=== PATIENT | female | born 1930 | race Caucasian/White ===

== ENCOUNTER 2017-05-05 10:08 | Emergency (ER) | payer OTHER ==
[~2017-05-05] VITALS: Ht 160 cm; Wt 76.0 kg
[~2017-05-05 10:08] MED LIST: APIX5TAB PO; ASPI81TA82 PO; DOXY100T PO; FENO134C PO; GABA100C4 PO; ISOS30TA3 PO; LISI-363 PO; METO50CR PO; MEVA40TA6 PO; NITR0.4S SL; PANT20 PO
[2017-05-05 10:10] VITALS: BP 135/65; PULSE 55; RESP 16; TEMP 98.7; O2SAT 97
--- NOTE | 2017-05-05 10:52 | PD ---
HPI Chief Complaint: Fall Time Seen by Provider: 10:52 Travel History International Travel<30 days: No Contact w/Intl Traveler<30days: No Traveled to known affect area: No History of Present Illness HPI 86 year-old female presents to the emergency department with her daughter for evaluation of tailbone pain after a slip and fall one week ago. Patient believes she may have broken her tailbone. When she fell she did not strike her head or lose consciousness. She is bruised on her right forearm and elbow and the outer is requesting evaluation of this. Patient states the pain is aching, constant, worse with sitting. She has no other symptoms to report. PFSH Past Medical History Hx Anticoagulant Therapy: Yes Anemia: Yes Arthritis: Yes Asthma: No Atrial Fibrillation: Yes (takes Plavix and 2 baby aspirin) Autoimmune Disease: No Blood Disorders: No Anxiety: No Depression: No Heart Rhythm Problems: No Cancer: Yes (RT BREAST) Cardiac Catheterization: Yes Cardiovascular Problems: Yes High Cholesterol: Yes Chemotherapy: No Chest Pain: Yes Congestive Heart Failure: No COPD: No Cerebrovascular Accident: Yes (TIA ) Coronary Artery Disease: Yes Diabetes: No Diminished Hearing: No Endocrine: No Gastrointestinal Disorders: Yes (ULCERS 20 YEARS AGO; C-DIFF) GERD: Yes Glaucoma: No Genitourinary: No Headaches: No Hepatitis: No Hiatal Hernia: No Hypertension: Yes Immune Disorder: No Implanted Vascular Access Dvce: No Kidney Stones: No Musculoskeletal: No Neurologic: No Psychiatric: No Reproductive: No Respiratory: No Immunizations Current: Yes Migraines: No Myocardial Infarction: No Radiation Therapy: Yes Renal Failure: No Seizures: No Sickle Cell Disease: No Sleep Apnea: Yes Thyroid Disease: No Ulcer: Yes ?: Not Menopausal: Yes Past Surgical History Abdominal Surgery: Yes (hernia repair) AICD: No Appendectomy: No Arteriovenous Shunt: No Cardiac Surgery: Yes (ANGIOPLASTY) Cholecystectomy: Yes Coronary Stent: Yes (X3) Ear Surgery: No Endocrine Surgery: No Eye Surgery: No Genitourinary Surgery: No Gynecologic Surgery: Yes (RT BRST LUMPECTOMY) Hysterectomy: Yes Insulin Pump: No Joint Replacement: Yes (R HIP) Neurologic Surgery: No Oral Surgery: No Pacemaker: No Thoracic Surgery: No Other Surgery: Yes (RIGHT BREAST LUMPECTOMY) Social History Alcohol Use: Yes (OCC. WINE) Tobacco Use: No Substance Use: No Allergies-Medications (Allergen,Severity, Reaction): Coded Allergies: Sulfa (Sulfonamide Antibiotics) (Unverified Allergy, Severe, 05/04/17) codeine (Unverified Allergy, Severe, Hallucinations, 05/04/17) & HIVES penicillin G (Unverified Allergy, Severe, ITCHING, 05/04/17) Reported Meds & Prescriptions Reported Meds & Active Scripts Active Lortab (Hydrocodone-Acetaminophen) 5-325 Mg Tab 1 Tab PO Q6H PRN Reported Protonix (Pantoprazole Sodium) 20 Mg Tab 20 Mg PO DAILY Nitroglycerin SL (Nitroglycerin) 0.4 Mg Subl 0.4 Mg SL DIRECTED PRN ONE TABLET UNDER THE TONGUE NEEDED FOR CHEST PAIN, MAY REPEAT EVERY FIVE MINUTES FOR A TOTAL OF 3 DOSES OR CALL 911 IF NO RELIEF Metoprolol Succinate ER 24 HR (Metoprolol Succinate) 50 Mg Tab 50 Mg PO DAILY Lovastatin 40 Mg Tab 40 Mg PO DAILY Lisinopril 20 Mg Tab 20 Mg PO DAILY Gabapentin 100 Mg Cap 100 Mg PO BID Fenofibrate Micronized 134 Mg Cap 134 Mg PO DAILY Aspirin 81 Mg Chew 81 Mg CHEW DAILY Eliquis (Apixaban) 5 Mg Tab 5 Mg PO BID Review of Systems Except as stated in HPI: all other systems reviewed are Neg Physical Exam Narrative GENERAL: Well-nourished elderly female patient in no acute distress SKIN: Focused skin assessment warm/dry. Ecchymosis of the right forearm and proximal upper extremity. HEAD: Atraumatic. Normocephalic. EYES: Pupils equal and round. No scleral icterus. No injection or drainage. ENT: No nasal bleeding or discharge. Mucous membranes pink and moist. NECK: Trachea midline. No JVD. CARDIOVASCULAR: Regular rate and rhythm. RESPIRATORY: No accessory muscle use. Clear to auscultation. Breath sounds equal bilaterally. GASTROINTESTINAL: Abdomen soft, non-tender, nondistended. Hepatic and splenic margins not palpable. MUSCULOSKELETAL: No obvious deformities. No clubbing. No cyanosis. No edema. Tenderness elicited palpation of the sacrum and coccyx. NEUROLOGICAL: Awake and alert. No obvious cranial nerve deficits. Motor grossly within normal limits. Normal speech. PSYCHIATRIC: Appropriate mood and affect; insight and judgment normal. Data Data Last Documented VS Vital Signs Date Time Temp Pulse Resp B/P Pulse Ox O2 Delivery O2 Flow Rate FiO2 05/05/17 13:23 88 17 132/80 96 05/05/17 10:10 98.7 Room Air Orders Sacrum And Coccyx (05/05/17 ) Shoulder, Complete (>2vws) (05/05/17 ) Forearm (2vws) (05/05/17 ) Dexamethasone Inj (Decadron Inj) (05/05/17 11:30) Acetamin-Hydrocod 325-5 Mg ([place] 5-325 (05/05/17 13:00) [facility] Medical Decision Making Medical Screen Exam Complete: Yes Emergency Medical Condition: Yes Medical Record Reviewed: Yes Differential Diagnosis Fracture versus sprain versus contusion versus dislocation Narrative Course 86 year female presents to the emergency department for evaluation. Patient appears without distress. She has no focal deficits or weakness. Fall was one week ago. X-ray imaging of the sacrum and coccyx shows a possible nondisplaced fracture of the coccyx. Otherwise imaging studies are negative. Patient is child with a Lortab here for pain. She tolerates this well. She'll be discharged home with additional pain control. She is encouraged to follow with orthopedically impaired teacher in her primary care provider. She agrees to return immediately with any acute worsening symptoms. Diagnosis Primary Impression: Fractured coccyx Qualified Code: S32.2XXA - Closed fracture of coccyx, initial encounter Additional Impression: Contusion of right arm Qualified Code: S40.021A - Contusion of right upper extremity, initial encounter Referrals: Orthopaedic Surgeon Primary Care Physician Patient Instructions: Coccyx Injury (ED), General Instructions Additional Instructions: Ice to the affected area A wedge pillow may help to avoid pressure on the coccyx while it heals Follow-up with orthopedically impaired teacher Follow-up with your primary care provider Return immediately with any acute worsening of symptoms Med/Other Pt SpecificInfo: Prescription(s) given Scripts Hydrocodone-Acetaminophen (Lortab)5-325 Mg Tab1 Tab PO Q6H PRN (PAIN GREATER THAN 6) #12 TAB Ref 0 Prov:Sheri Ward 05/05/17 Disposition: 01 DISCHARGE HOME Condition: Stable Sheri Ward May 05, 2017 10:52
[2017-05-05] MEDS ORDERED: GABA100C4 PO (11:19)
[2017-05-05] MEDS ORDERED: ASPI81CH PO (11:19)
[2017-05-05] MEDS ORDERED: FENO134C PO (11:19)
[2017-05-05] MEDS ORDERED: METO50TA11 PO (11:19)
[2017-05-05] MEDS ORDERED: LOVA40TA PO (11:19)
[2017-05-05] MEDS ORDERED: NITR1SUB3 SL (11:19)
[2017-05-05] MEDS ORDERED: PANT20 PO (11:19)
[2017-05-05] MEDS ORDERED: APIX5TAB PO (11:19)
[2017-05-05] MEDS ORDERED: LISI-515 PO (11:19)
[2017-05-05] MEDS ORDERED: DEXAMETHASONE SOD PHOS 4 MG/ML VIAL IM ONE (11:30)
--- NOTE | 2017-05-05 12:07 | RADRPT ---
EXAM DATE/TIME: 05/05/2017 11:20 [facility] COMPARISON: SHOULDER RIGHT COMPLETE (>2VWS), March 11, 2016, 12:42. INDICATIONS : Fall last Wednesday evening. MEDICAL HISTORY : Carcinoma, breast. Hypertension. Hernia. Anemia. Afib. TIA. CAD. SURGICAL HISTORY : Cholecystectomy. Cardiac catheterization. Hernia. Angioplasty. Right breast lumpectomy, Left hip re placement ENCOUNTER: Initial ACUITY: 4 - 6 days PAIN SCORE: 5/10 LOCATION: Right Lateral aspect FINDINGS: Degenerative changes are seen about the right shoulder. Alignment is anatomic. Fracture is not appr eciated. CONCLUSION: Degenerative changes, negative for fracture. Gene Starkey MD FACR on May 05, 2017 at 12:05 Board Certified Radiologist. This report was verified electronically.
--- NOTE | 2017-05-05 12:08 | RADRPT ---
EXAM DATE/TIME: 05/05/2017 11:18 [facility] COMPARISON: No previous studies available for comparison. INDICATIONS : Fall last Wednesday evening. MEDICAL HISTORY : Carcinoma, breast. Hypertension. Hernia. Anemia. Afib. TIA. CAD. SURGICAL HISTORY : Cholecystectomy. Cardiac catheterization. Hernia. Angioplasty. Right breast lumpectomy, Left hip re placement. ENCOUNTER: Initial ACUITY: 4 - 6 days PAIN SCORE: 4/10 LOCATION: Right Posterior aspect. FINDINGS: Two view examination of the right forearm demonstrates no evidence of fracture or dislocation. Bony mineralization is normal. The soft tissue structures are intact. CONCLUSION: Negative for fracture. Gene Starkey MD FACR on May 05, 2017 at 12:06 Board Certified Radiologist. This report was verified electronically.
--- NOTE | 2017-05-05 12:42 | RADRPT ---
EXAM DATE/TIME: 05/05/2017 11:18 [facility] COMPARISON: SHOULDER RIGHT COMPLETE (>2VWS), March 11, 2016, 12:42. INDICATIONS : Fall last Wednesday evening. MEDICAL HISTORY : Carcinoma, breast. Hypertension. Hernia. Anemia. Afib. TIA. CAD. SURGICAL HISTORY : Cholecystectomy. Cardiac catheterization. Hernia. Angioplasty. Right breast lumpectomy, Left hip re placement. ENCOUNTER: Initial ACUITY: 4 - 6 days PAIN SCORE: 8/10 LOCATION: Rear end FINDINGS: 2 views of the sacrum and coccyx are provided. The exam demonstrates subtle lucency through the coccy x. There is questionable nondisplaced fracture of the coccyx. The remainder the sacrum appears intact . The visualized portions of pelvis are intact. The patient is post left hip arthroplasty. CONCLUSION: 1. Questionable nondisplaced fracture through the coccyx. Jose Starkey MD on May 05, 2017 at 12:39 Board Certified Radiologist. This report was verified electronically.
[2017-05-05] MEDS ORDERED: ACETAMINOPHEN/HYDROcodone 325 MG/5 MG TAB PO ONE (13:00)
[2017-05-05] MEDS ORDERED: HYDR-3533 PO (13:17)
[2017-05-05 13:23] VITALS: BP 132/80
== END 2017-05-05 13:24 | disposition home or self-care (01) ==
LOC: NEPD 10:08
DX: S32.2XXA Fracture of coccyx, initial encounter for closed fracture (principal); S40.021A Contusion of right upper arm, initial encounter; I10 Essential (primary) hypertension; E78.00 Pure hypercholesterolemia, unspecified; G47.30 Sleep apnea, unspecified; W19.XXXA Unspecified fall, initial encounter; Z86.2 Personal history of diseases of the blood and blood-forming organs and certain disorders involving the immune mechanism; Z87.39 Personal history of other diseases of the musculoskeletal system and connective tissue; Z86.79 Personal history of other diseases of the circulatory system; Z85.3 Personal history of malignant neoplasm of breast; Z87.19 Personal history of other diseases of the digestive system
CPT/HCPCS: 72220; 73030; 73090; 96372; 99284; J1100

== ENCOUNTER 2017-06-24 15:59 | Observation (INO) | payer MEDICARE, OTHER ==
[~2017-06-24] VITALS: Ht 165.1 cm; Wt 80.0 kg
[~2017-06-24 15:59] MED LIST changes: +ASPI81CH PO; -ASPI81TA82 PO; -DOXY100T PO; +HYDR-3533 PO; -ISOS30TA3 PO; -LISI-363 PO; +LISI-515 PO; +LOVA40TA PO; -METO50CR PO; +METO50TA11 PO; -MEVA40TA6 PO; -NITR0.4S SL; +NITR1SUB3 SL
[2017-06-24 16:00] VITALS: BP 178/74; PULSE 84; RESP 16; TEMP 99.2; O2SAT 95
[2017-06-24 16:35] LABS: BLOOD, URINE NEG (NEG); COMMENT (UR) CULTURE INDICATED; CULTURE IF INDICATED CULTURE INDICATED; GLUCOSE,URINE NEG (NEG); KETONE, URINE NEG (NEG); NITRITE,URINE NEG (NEG); SQUAMOUS EPITHELIAL CELL URINE <1 /hpf (0-5); URINE COLOR LIGHT-YELLOW (YELLW/STRAW)
--- NOTE | 2017-06-24 17:54 | PD ---
HPI Chief Complaint: Complaint Time Seen by Provider: 17:45 Travel History International Travel<30 days: No Contact w/Intl Traveler<30days: No Traveled to known affect area: No History of Present Illness HPI 86-year-old female with A. anisha Meyers, here for evaluation of lower abdominal pain. The patient reports having pain for the last few days. She was diagnosed with a UTI by her primary care physician and was started on an antibiotic, but she does not know the name of this medication and does not have it with her. Pain is described as pressure, constant, moderate, worse with movement and palpation. She had a normal bowel movement yesterday. She has not noted any melena or hematochezia. She denies vomiting or diarrhea. No fevers or chills. She does have some dysuria. She has a reported history of cholecystectomy, appendectomy, hysterectomy, and lower abdominal hernia repair. PFSH Past Medical History Hx Anticoagulant Therapy: Yes Anemia: Yes Arthritis: Yes Asthma: No Atrial Fibrillation: Yes (takes Plavix and 2 baby aspirin) Autoimmune Disease: No Blood Disorders: No Anxiety: No Depression: No Heart Rhythm Problems: No Cancer: Yes (RT BREAST) Cardiac Catheterization: Yes Cardiovascular Problems: Yes High Cholesterol: Yes Chemotherapy: No Chest Pain: Yes Congestive Heart Failure: No COPD: No Cerebrovascular Accident: Yes (TIA ) Coronary Artery Disease: Yes Diabetes: No Diminished Hearing: No Endocrine: No Gastrointestinal Disorders: Yes (ULCERS 20 YEARS AGO; C-DIFF) GERD: Yes Glaucoma: No Genitourinary: No Headaches: No Hepatitis: No Hiatal Hernia: No Hypertension: Yes Immune Disorder: No Implanted Vascular Access Dvce: No Kidney Stones: No Musculoskeletal: No Neurologic: No Psychiatric: No Reproductive: No Respiratory: No Immunizations Current: Yes Migraines: No Myocardial Infarction: No Radiation Therapy: Yes Renal Failure: No Seizures: No Sickle Cell Disease: No Sleep Apnea: Yes Thyroid Disease: No Ulcer: Yes Menopausal: Yes Past Surgical History Abdominal Surgery: Yes (hernia repair) AICD: No Appendectomy: No Arteriovenous Shunt: No Cardiac Surgery: Yes (ANGIOPLASTY) Cholecystectomy: Yes Coronary Stent: Yes (X3) Ear Surgery: No Endocrine Surgery: No Eye Surgery: No Genitourinary Surgery: No Gynecologic Surgery: Yes (RT BRST LUMPECTOMY) Hysterectomy: Yes Insulin Pump: No Joint Replacement: Yes (R HIP) Neurologic Surgery: No Oral Surgery: No Pacemaker: No Thoracic Surgery: No Other Surgery: Yes (RIGHT BREAST LUMPECTOMY) Social History Alcohol Use: Yes (OCC. WINE) Tobacco Use: No Substance Use: No Allergies-Medications (Allergen,Severity, Reaction): Coded Allergies: Sulfa (Sulfonamide Antibiotics) (Verified Allergy, Severe, 06/24/17) codeine (Verified Allergy, Severe, Hallucinations, 06/24/17) & HIVES penicillin G (Verified Allergy, Severe, ITCHING, 06/24/17) Reported Meds & Prescriptions Reported Meds & Active Scripts Active Reported Calcium 600+D 200 (Calcium Carbonate-Vitamin D) 600-200 Mg-Unit Tab 1 Tab PO DAILY Vitamin E (Vitamin E Mixed) 400 Unit Tablet 400 Units PO DAILY Vitamin D3 (Cholecalciferol) 1,000 Unit Tab 1,000 Units PO DAILY Vitamin B-12 (Cyanocobalamin) 1,000 Mcg Tab 1,000 Mcg PO DAILY Isosorbide Mononitrate ER (Isosorbide Mononitrate) 30 Mg Ger[place] 30 Mg PO DAILY Magnesium Oxide 400 Mg Tab 400 Mg PO DAILY Spironolactone 25 Mg Tab 25 Mg PO MOTH Take 1 tablet (25mg) daily on Wednesday and Gabapentin 100 Mg Cap 200 Mg PO HS Metoprolol Succinate ER 24 HR (Metoprolol Succinate) 25 Mg Tab 25 Mg PO BID Lisinopril 2.5 Mg Tab 2.5 Mg PO HS Fenofibrate 54 Mg Tab 54 Mg PO DAILY Protonix (Pantoprazole Sodium) 20 Mg Tab 20 Mg PO DAILY Nitroglycerin SL (Nitroglycerin) 0.4 Mg Subl 0.4 Mg SL DIRECTED PRN ONE TABLET UNDER THE TONGUE NEEDED FOR CHEST PAIN, MAY REPEAT EVERY FIVE MINUTES FOR A TOTAL OF 3 DOSES OR CALL 911 IF NO RELIEF Lovastatin 40 Mg Tab 40 Mg PO DAILY Gabapentin 100 Mg Cap 100 Mg PO DAILY IN THE AM Aspirin 81 Mg Chew 81 Mg PO DAILY Eliquis (Apixaban) 5 Mg Tab 5 Mg PO BID Review of Systems Except as stated in HPI: all other systems reviewed are Neg Physical Exam Narrative GENERAL: Well-developed, well-nourished, elderly-appearing female, comfortable, no apparent distress. SKIN: Focused skin assessment warm/dry. HEAD: Atraumatic. Normocephalic. EYES: Pupils equal and round. No scleral icterus. No injection or drainage. ENT: Mucous membranes pink and moist. CARDIOVASCULAR: Regular rate and rhythm. RESPIRATORY: No accessory muscle use. Clear to auscultation. Breath sounds equal bilaterally. GASTROINTESTINAL: Abdomen soft, nondistended. Moderate lower abdominal tenderness without peritoneal signs. Rest of abdomen is soft and nontender. Normal bowel sounds. MUSCULOSKELETAL: No obvious deformities. No clubbing. No cyanosis. No edema. NEUROLOGICAL: Awake and alert. No obvious cranial nerve deficits. Motor grossly within normal limits. Normal speech. PSYCHIATRIC: Appropriate mood and affect; insight and judgment normal. Data Data Last Documented VS Vital Signs Date Time Temp Pulse Resp B/P (MAP) Pulse Ox O2 Delivery O2 Flow Rate FiO2 06/24/17 21:23 88 16 183/76 (111) 100 06/24/17 18:16 97.7 Room Air Orders Orders Urinalysis - C+S If Indicated (06/24/17 16:17) Urine Culture (06/24/17 16:20) Complete Blood Count With Diff (06/24/17 17:49) Comprehensive Metabolic Panel (06/24/17 17:49) Lipase (06/24/17 17:49) Lactic Acid (06/24/17 17:49) Prothrombin Time / Inr (Pt) (06/24/17 17:49) Act Partial Throm Time (Ptt) (06/24/17 17:49) Ct Abd/Pel W Iv Contrast(Rout) (06/24/17 17:49) Iv Access Insert/Monitor (06/24/17 17:49) Ecg Monitoring (06/24/17 17:49) Oximetry (06/24/17 17:49) Sodium Chloride 0.9% Flush (Ns Flush) (06/24/17 18:00) Electrocardiogram (06/24/17 17:49) Morphine Inj (Morphine Inj) (06/24/17 19:00) Ondansetron Inj (Zofran Inj) (06/24/17 19:00) Iohexol 350 Inj (Omnipaque 350 Inj) (06/24/17 20:16) Ciprofloxacin 400 Mg Premix (Cipro 400 M (06/24/17 21:00) Metronidazole 500 Mg Inj (Flagyl 500 Mg (06/24/17 21:00) Admit Order (Ed Use Only) (06/24/17 21:29) Labs Laboratory Tests Test 06/24/17 16:20 06/24/17 18:05 Urine Color LIGHT-YELLOW Urine Turbidity CLEAR Urine pH 7.0 Urine Specific [place] 1.006 Urine Protein NEG mg/dL Urine Glucose (UA) NEG mg/dL Urine Ketones NEG mg/dL Urine Occult Blood NEG Urine Nitrite NEG Urine Bilirubin NEG Urine Urobilinogen LESS THAN 2.0 MG/DL Urine Leukocyte Esterase LARGE Urine RBC LESS THAN 1 /hpf Urine WBC 21 /hpf Urine Squamous Epithelial Cells <1 /hpf Microscopic Urinalysis Comment CULTURE INDICATED White Blood Count 9.8 TH/MM3 Red Blood Count 3.78 MIL/MM3 Hemoglobin 12.1 GM/DL Hematocrit 35.7 % Mean Corpuscular Volume 94.3 FL Mean Corpuscular Hemoglobin 32.0 PG Mean Corpuscular Hemoglobin Concent 33.9 % Red Cell Distribution Width 13.3 % Platelet Count 200 TH/MM3 Mean Platelet Volume 8.2 FL Neutrophils (%) (Auto) 73.1 % Lymphocytes (%) (Auto) 17.3 % Monocytes (%) (Auto) 8.3 % Eosinophils (%) (Auto) 1.1 % Basophils (%) (Auto) 0.2 % Neutrophils # (Auto) 7.2 TH/MM3 Lymphocytes # (Auto) 1.7 TH/MM3 Monocytes # (Auto) 0.8 TH/MM3 Eosinophils # (Auto) 0.1 TH/MM3 Basophils # (Auto) 0.0 TH/MM3 CBC Comment DIFF FINAL Differential Comment Prothrombin Time 11.7 SEC Prothromb Time International Ratio 1.1 RATIO Activated Partial Thromboplast Time 32.8 SEC Blood Urea Nitrogen 12 MG/DL Creatinine 1.14 MG/DL Random Glucose 112 MG/DL Total Protein 7.9 GM/DL Albumin 4.1 GM/DL Calcium Level 9.4 MG/DL Alkaline Phosphatase 56 U/L Aspartate Amino Transf (AST/SGOT) 21 U/L Alanine Aminotransferase (ALT/SGPT) 18 U/L Total Bilirubin 1.0 MG/DL Sodium Level 137 MEQ/L Potassium Level 3.8 MEQ/L Chloride Level 102 MEQ/L Carbon Dioxide Level 28.2 MEQ/L Anion Gap 7 MEQ/L Estimat Glomerular Filtration Rate 45 ML/MIN Lactic Acid Level 0.9 mmol/L Lipase 109 U/L [facility] Medical Decision Making Medical Screen Exam Complete: Yes Emergency Medical Condition: Yes Medical Record Reviewed: Yes Interpretation(s) EKG: A. fib, rate 78, leftward axis, incomplete RBBB, septal Q waves, no acute ischemic abnormality. Differential Diagnosis Colitis, diverticulitis, mesenteric ischemia, UTI, cystitis Narrative Course Vital signs show heart rate 84, blood pressure 178/74, pulse ox 95% on room air , oral temp of 99.2F. CBC: WBC 9.8, hemoglobin 12.1, hematocrit 35.7, platelets 200, neutrophils 73%. CMP is unremarkable. Lipase is 109. Lactic acid is 0.9. UA: Large the site esterase, 21 WBCs, culture indicated. CT abdomen pelvis: CONCLUSION: 1. Suspected inflammatory change in the distal descending colon likely from diverticulitis. An abscess is not seen. 2. Midline anterior abdominal wall hernia in the pelvis containing a mild amount of small bowel. Significant bowel dilatation to suggest obstruction is not seen. 3. Distended urinary bladder. The ureters are dilatated bilaterally. There is some dilatation of the right collecting system. No renal stones are seen. The cause for the distended bladder is not seen. 4. Pneumobilia. This should be correlated if the patient has had any recent interventions in the biliary system. The patient appears to be status post cholecystectomy. Patient was made aware of all findings. She is still having lower abdominal pain and tenderness despite receiving a dose of IV morphine. Given her ongoing pain in her age she will be admitted IV antibiotic therapy. Case discussed with hospitalist Dr. Mccarty who will admit the patient to her service. Diagnosis Primary Impression: Diverticulitis Qualified Codes: K57.32 - Diverticulitis of large intestine without perforation or abscess without bleeding Additional Impressions: Pyuria Abdominal pain Qualified Codes: R10.30 - Lower abdominal pain, unspecified Admitting Information Admitting Physician Requests: Rc Loyd MD Jun 24, 2017 17:54
[2017-06-24] MEDS ORDERED: SODIUM CHLORIDE 0.9% FLUSH 10 ML FLUSH IV FLUSH PRN ×2 (18:00→21:30)
[2017-06-24 18:16] VITALS: BP 186/77; PULSE 83; RESP 19; TEMP 97.7; O2SAT 97
[2017-06-24 18:28] LABS: AUTOMATED NEUTROPHIL # 7.2 TH/MM3 (1.8-7.7); BASOPHIL % 0.2 % (0.0-2.0); EOSINOPHIL # 0.1 TH/MM3 (0-0.4); EOSINOPHIL % 1.1 % (0.0-4.0); HEMATOCRIT 35.7 % (35.0-46.0); HEMO FLAGS DIFF FINAL; LYMPH % 17.3 % (9.0-44.0); LYMPHOCYTE # 1.7 TH/MM3 (1.0-4.8); MEAN CELL VOLUME 94.3 FL (80.0-100.0); MEAN CORPUSCULAR HGB CONC 33.9 % (32.0-36.0); MONO % 8.3 % (0.0-8.0); NEUT % 73.1 % (16.0-70.0); PLATELET COUNT 200 TH/MM3 (150-450); RED BLOOD COUNT 3.78 MIL/MM3 (4.00-5.30); RED CELL DISTRIBUTION WIDTH 13.3 % (11.6-17.2); WHITE BLOOD COUNT 9.8 TH/MM3 (4.0-11.0)
[2017-06-24] MEDS ORDERED: LISI2.5T3 PO (18:35)
[2017-06-24] MEDS ORDERED: GABA100C4 PO (18:35)
[2017-06-24] MEDS ORDERED: ISOS30TA3 PO (18:35)
[2017-06-24] MEDS ORDERED: VITA10002 PO (18:35)
[2017-06-24] MEDS ORDERED: VITA400T20 PO (18:35)
[2017-06-24] MEDS ORDERED: TH C600T4 PO (18:35)
[2017-06-24] MEDS ORDERED: FENO54TA PO (18:35)
[2017-06-24] MEDS ORDERED: MAGN400T2 PO (18:35)
[2017-06-24] MEDS ORDERED: VITA100064 PO (18:35)
[2017-06-24] MEDS ORDERED: SPIR25TA PO (18:35)
[2017-06-24] MEDS ORDERED: METO25TA6 PO (18:35)
[2017-06-24] MEDS ORDERED: CALCTAB19 PO (18:42)
[2017-06-24 18:44] LABS: APTT (PATIENT) 32.8 SEC (24.3-30.1); INTERNATIONAL NORMALIZED RATIO 1.1 RATIO; PROTHROMBIN TIME - PATIENT 11.7 SEC (9.8-11.6)
[2017-06-24 18:47] LABS: ANION GAP 7 MEQ/L (5-15); AST (GOT) 21 U/L (15-37); BICARBONATE 28.2 MEQ/L (21.0-32.0); BLOOD UREA NITROGEN 12 MG/DL (7-18); CHLORIDE 102 MEQ/L (98-107); GLOMERULAR FILTRATION RATE 45 ML/MIN (>89); POTASSIUM 3.8 MEQ/L (3.5-5.1); SODIUM (NA) 137 MEQ/L (136-145)
[2017-06-24 18:48] LABS: ALT (GPT) 18 U/L (10-53)
[2017-06-24 18:50] LABS: ALKALINE PHOSPHATASE 56 U/L (45-117)
[2017-06-24] MEDS ORDERED: ONDANSETRON HCL 4 MG/2 ML VIAL IV PUSH ONE (19:00)
[2017-06-24] MEDS ORDERED: MORPHINE SULFATE 2 MG/ML INJ IV PUSH ONE (19:00)
[2017-06-24] MEDS ORDERED: IOHEXOL 350 MG/ML 10 ML VIAL (for RAD DIAG) IVCONTRAST ONE (20:16)
--- NOTE | 2017-06-24 20:53 | RADRPT ---
EXAM DATE/TIME: 06/24/2017 20:11 [facility] COMPARISON: CT ABDOMEN & PELVIS W CONTRAST, July 19, 2009, 13:18. INDICATIONS : Abdominal pain with urinary frequency. IV CONTRAST: 80 cc Omnipaque 350 (iohexol) IV ORAL CONTRAST: No oral contrast ingested. RADIATION DOSE: 11.80 CTDIvol (mGy) MEDICAL HISTORY : Hypertension. Carcinoma, breast. SURGICAL HISTORY : Appendectomy. Cholecystectomy. Hysterectomy. ENCOUNTER: Initial ACUITY: 1 day PAIN SCALE: 8/10 LOCATION: Abdomen TECHNIQUE: Volumetric scanning of the abdomen and pelvis was performed. Using automated exposure control and adjustment of the mA and/or kV according to patient size, radiation dose was kept as low as reasonably achievable to obtain optimal diagnostic quality images. DICOM format image data is av ailable electronically for review and comparison. FINDINGS: There is pneumobilia. No focal hepatic lesions are seen. The patient is status post c holecystectomy. There appears to be atrophy of the pancreas. A pancreatic mass is not seen. The spl een is unremarkable. There are bilateral renal cysts. There is mild dilatation of the right collect ing system and right ureter. The left ureter is mildly dilated. The left collecting system does no t appear dilated. The urinary bladder is moderately distended extending into the lower abdomen. There is a midline hernia seen in the pelvis containing segments of small bowel. Significant bowel d ilatation is not seen. Obstruction is not clearly identified. The hernia defect measures approximat fracisco 4 cm. There does appear to be thickening of the distal sigmoid colon posterior to the bladder. There is induration in the surrounding fat. There are scattered diverticula in this region. There is some minimal suspected atelectasis at the right lung base. The heart size is enlarged. The re is degenerative change in the lumbar spine. There is a left hip prosthesis. CONCLUSION: 1. Suspected inflammatory change in the distal descending colon likely from diverticulitis. An absce ss is not seen. 2. Midline anterior abdominal wall hernia in the pelvis containing a mild amount of small bowel. Sign ificant bowel dilatation to suggest obstruction is not seen. 3. Distended urinary bladder. The ureters are dilatated bilaterally. There is some dilatation of the right collecting system. No renal stones are seen. The cause for the distended bladder is not seen. 4. Pneumobilia. This should be correlated if the patient has had any recent interventions in the jomar iary system. The patient appears to be status post cholecystectomy. Rodrigo Restrepo MD on June 24, 2017 at 20:38 Board Certified Radiologist. This report was verified electronically.
[2017-06-24] MEDS ORDERED: CIPROFLOXACIN 400 MG PREMIX 200 ML IV ONE (21:00)
[2017-06-24] MEDS ORDERED: metroNIDAZOLE 500 MG INJ 100 ML IV ONE (21:00)
[2017-06-24 21:23] VITALS: BP 183/76; PULSE 88; RESP 16; O2SAT 100
[2017-06-24] MEDS ORDERED: ONDANSETRON HCL 4 MG/2 ML VIAL IVP PRN (21:30)
[2017-06-24] MEDS ORDERED: NALOXONE HCL 0.4 MG/ML AMP IV PUSH PRN (21:30)
[2017-06-24 22:15] VITALS: BP 123/60; PULSE 78; RESP 16; O2SAT 99
[2017-06-24 23:43] VITALS: BP 136/63; PULSE 73; RESP 18; TEMP 97.8; O2SAT 94
--- NOTE | 2017-06-24 23:57 | HHI.HP ---
[facility] Service [facility] Primary Care Physician Og Jacinto MD Admission Diagnosis diverticulitis, pyuria, intractable abdominal pain Diagnoses: (1) Diverticulitis (2) Pyuria (3) Abdominal pain Chief Complaint: Abdominal pain Travel History International Travel<30 Days: No Contact w/Intl Traveler <30 Da: No Traveled to Known Affected Are: No History of Present Illness Written by Crys Golden, acting as scribe for Dr. Mccarty on 06/24/17 at 23:57. The patient reports abdominal pain for four days. 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 Past Surgical History Broken leg repair Right breast lumpectomy Cervical repair Cardiac cath s/p coronary stent placements Skin cancer removal . Reported Medications Reported Meds & Active Scripts Active Reported Calcium 600+D 200 (Calcium Carbonate-Vitamin D) 600-200 Mg-Unit Tab 1 Tab PO DAILY Vitamin E (Vitamin E Mixed) 400 Unit Tablet 400 Units PO DAILY Vitamin D3 (Cholecalciferol) 1,000 Unit Tab 1,000 Units PO DAILY Vitamin B-12 (Cyanocobalamin) 1,000 Mcg Tab 1,000 Mcg PO DAILY Isosorbide Mononitrate ER (Isosorbide Mononitrate) 30 Mg Gerber 30 Mg PO DAILY Magnesium Oxide 400 Mg Tab 400 Mg PO DAILY Spironolactone 25 Mg Tab 25 Mg PO MOTH Take 1 tablet (25mg) daily on Wednesday and Gabapentin 100 Mg Cap 200 Mg PO HS Metoprolol Succinate ER 24 HR (Metoprolol Succinate) 25 Mg Tab 25 Mg PO BID Lisinopril 2.5 Mg Tab 2.5 Mg PO HS Fenofibrate 54 Mg Tab 54 Mg PO DAILY Protonix (Pantoprazole Sodium) 20 Mg Tab 20 Mg PO DAILY Nitroglycerin SL (Nitroglycerin) 0.4 Mg Subl 0.4 Mg SL DIRECTED PRN ONE TABLET UNDER THE TONGUE NEEDED FOR CHEST PAIN, MAY REPEAT EVERY FIVE MINUTES FOR A TOTAL OF 3 DOSES OR CALL 911 IF NO RELIEF Lovastatin 40 Mg Tab 40 Mg PO DAILY Gabapentin 100 Mg Cap 100 Mg PO DAILY IN THE AM Aspirin 81 Mg Chew 81 Mg PO DAILY Eliquis (Apixaban) 5 Mg Tab 5 Mg PO BID . Allergies: Coded Allergies: Sulfa (Sulfonamide Antibiotics) (Verified Allergy, Severe, 07/06/17) codeine (Verified Allergy, Severe, Hallucinations, 07/06/17) & HIVES penicillin G (Verified Allergy, Severe, ITCHING, 07/06/17) Active Ordered Medications Current Medications Sodium Chloride (NS Flush) 2 ml UNSCH PRN IV FLUSH FLUSH AFTER USING IV ACCESS Last administered on 06/24/17 20:13; Start 06/24/17 at 18:00 Morphine Sulfate (Morphine Inj) 2 mg ONCE ONCE IV PUSH Last administered on 20:12; Start 06/24/17 at 19:00; Stop 06/24/17 at 19:01; Status DC Ondansetron HCl (Zofran Inj) 4 mg ONCE ONCE IV PUSH Last administered on 20:12; Start 06/24/17 at 19:00; Stop 06/24/17 at 19:01; Status DC Iohexol (Omnipaque 350 Inj) 80 ml STK-MED ONCE IVCONTRAST Last administered on 06/24/17 20:16; Start 06/24/17 at 20:16; Stop 06/24/17 at 20:17; Status DC Ciprofloxacin/ Dextrose 200 ml @ 200 mls/hr ONCE ONCE IV Last administered on 06/24/17 22:14; Start 06/24/17 at 21:00; Stop 06/24/17 at 21:59; Status DC Metronidazole 100 ml @ 100 mls/hr ONCE ONCE IV Last administered on 21:42; Start 06/24/17 at 21:00; Stop 06/24/17 at 21:59; Status DC Sodium Chloride (NS Flush) 2 ml UNSCH PRN IV FLUSH FLUSH AFTER USING IV ACCESS ; Start 06/24/17 at 21:30 Sodium Chloride (NS Flush) 2 ml BID IV FLUSH ; Start 06/25/17 at 09:00 Ondansetron HCl (Zofran Inj) 4 mg Q6H PRN IVP NAUSEA OR VOMITING; Start at 21:30 Naloxone HCl (Narcan Inj) 0.4 mg UNSCH PRN IV PUSH SEE LABEL COMMENTS; Start 06/24/17 at 21:30 Ciprofloxacin/ Dextrose 200 ml @ 200 mls/hr Q12H IV ; Start 06/25/17 at 09:00 Metronidazole 100 ml @ 100 mls/hr Q6H IV ; Start 06/25/17 at 03:00 . Family History CAD and hypertension . Social History Tobacco: quit smoking 40 years ago Alcohol: denies Illicit Drugs: denies Lives alone and drives; ; daughter lives 5 minutes away . Physical Exam Vital Signs Vital Signs Date Time Temp Pulse Resp B/P (MAP) Pulse Ox O2 Delivery O2 Flow Rate FiO2 06/24/17 23:43 97.8 73 18 136/63 (87) 94 06/24/17 22:51 06/24/17 22:15 78 16 123/60 (81) 99 Room Air 06/24/17 21:23 88 16 183/76 (111) 100 06/24/17 18:16 97.7 83 19 186/77 (113) 97 Room Air 06/24/17 17:49 18 06/24/17 16:00 99.2 84 16 178/74 (108) 95 Physical Exam GENERAL: This is a elderly female patient, in no apparent distress. Cognitively sharp. SKIN: No rashes, ecchymoses or lesions. Cool and dry. HEAD: Atraumatic. Normocephalic. EYES: No scleral icterus. No injection or drainage. ENT: Nose without bleeding, purulent drainage. Airway patent. NECK: Trachea midline. No JVD CARDIOVASCULAR: Regular rate and rhythm without murmurs, gallops, or rubs. RESPIRATORY: Clear to auscultation. Breath sounds equal bilaterally. No wheezes , rales, or rhonchi. GASTROINTESTINAL: Abdomen soft, nondistended. No guarding. Abdomen tender. MUSCULOSKELETAL: Extremities without clubbing, cyanosis, or edema. No calf tenderness. NEUROLOGICAL: Awake and alert. Motor and sensory grossly within normal limits. Normal speech. . Laboratory Laboratory Tests Test 06/24/17 16:20 06/24/17 18:05 Urine Color LIGHT-YELLOW Urine Turbidity CLEAR Urine pH 7.0 Urine Specific Irving 1.006 Urine Protein NEG Urine Glucose (UA) NEG Urine Ketones NEG Urine Occult Blood NEG Urine Nitrite NEG Urine Bilirubin NEG Urine Urobilinogen LESS THAN 2.0 Urine Leukocyte Esterase LARGE Urine RBC LESS THAN 1 Urine WBC 21 Urine Squamous Epithelial Cells <1 Microscopic Urinalysis Comment CULTURE INDICATED White Blood Count 9.8 Red Blood Count 3.78 Hemoglobin 12.1 Hematocrit 35.7 Mean Corpuscular Volume 94.3 Mean Corpuscular Hemoglobin 32.0 Mean Corpuscular Hemoglobin Concent 33.9 Red Cell Distribution Width 13.3 Platelet Count 200 Mean Platelet Volume 8.2 Neutrophils (%) (Auto) 73.1 Lymphocytes (%) (Auto) 17.3 Monocytes (%) (Auto) 8.3 Eosinophils (%) (Auto) 1.1 Basophils (%) (Auto) 0.2 Neutrophils # (Auto) 7.2 Lymphocytes # (Auto) 1.7 Monocytes # (Auto) 0.8 Eosinophils # (Auto) 0.1 Basophils # (Auto) 0.0 CBC Comment DIFF FINAL Differential Comment Prothrombin Time 11.7 Prothromb Time International Ratio 1.1 Activated Partial Thromboplast Time 32.8 Blood Urea Nitrogen 12 Creatinine 1.14 Random Glucose 112 Total Protein 7.9 Albumin 4.1 Calcium Level 9.4 Alkaline Phosphatase 56 Aspartate Amino Transf (AST/SGOT) 21 Alanine Aminotransferase (ALT/SGPT) 18 Total Bilirubin 1.0 Sodium Level 137 Potassium Level 3.8 Chloride Level 102 Carbon Dioxide Level 28.2 Anion Gap 7 Estimat Glomerular Filtration Rate 45 Lactic Acid Level 0.9 Lipase 109 Date/Time Source Procedure Growth Status 06/24/17 16:20 Urine Clean Catch Urine Culture Pending Received Result Diagram: 06/24/17 18006/24/17 180 Imaging Last Impressions Abdomen/Pelvis CT 06/24/17 [id number] Signed Impressions: Service Date/Time: June 20:11 - CONCLUSION: 1. Suspected inflammatory change in the distal descending colon likely from diverticulitis. An abscess is not seen. 2. Midline anterior abdominal wall hernia in the pelvis containing a mild amount of small bowel. Significant bowel dilatation to suggest obstruction is not seen. 3. Distended urinary bladder. The ureters are dilatated bilaterally. There is some dilatation of the right collecting system. No renal stones are seen. The cause for the distended bladder is not seen. 4. Pneumobilia. This should be correlated if the patient has had any recent interventions in the biliary system. The patient appears to be status post cholecystectomy. Rodrigo Restrepo MD . Caprini VTE Risk Assessment Caprini VTE Risk Assessment: Mod/High Risk (score >= 2) Caprini Risk Assessment Model Point Value = 1 Point Value = 2 Point Value = 3 Point Value = 5 Age 41-60 Minor surgery BMI > 25 kg/m2 Swollen legs Varicose veins or History of unexplained or recurrent spontaneous Oral contraceptives or hormone replacement Sepsis (< 1 month) Serious lung disease, including pneumonia (< 1 month) Abnormal pulmonary function Acute myocardial infarction Congestive heart failure (< 1 month) History of inflammatory bowel disease Medical patient at bed rest Age 61-74 Arthroscopic surgery Major open surgery (> 45 min) Laparoscopic surgery (> 45 min) Malignancy Confined to bed (> 72 hours) Immobilizing plaster cast Central venous access Age >= 75 History of VTE Family history of VTE Factor V Leiden Prothrombin [id number] Lupus anticoagulant Anticardiolipin antibodies Elevated serum homocysteine Heparin-induced thrombocytopenia Other congenital or acquired thrombophilia Stroke (< 1 month) Elective arthroplasty Hip, pelvis, or leg fracture Acute spinal cord injury (< 1 month) Prophylaxis Regimen Total Risk Factor Score Risk Level Prophylaxis Regimen 0-1 Low Early ambulation 2 Moderate Order ONE of the following: *Sequential Compression Device (SCD) *Heparin 5000 units SQ BID 3-4 Higher Order ONE of the following medications: *Heparin 5000 units SQ TID *Enoxaparin/Lovenox 40 mg SQ daily (WT < 150 kg, CrCl > 30 mL/min) *Enoxaparin/Lovenox 30 mg SQ daily (WT < 150 kg, CrCl > 10-29 mL/min) *Enoxaparin/Lovenox 30 mg SQ BID (WT < 150 kg, CrCl > 30 mL/min) AND/OR *Sequential Compression Device (SCD) 5 or more Highest Order ONE of the following medications: *Heparin 5000 units SQ TID (Preferred with Epidurals) *Enoxaparin/Lovenox 40 mg SQ daily (WT < 150 kg, CrCl > 30 mL/min) *Enoxaparin/Lovenox 30 mg SQ daily (WT < 150 kg, CrCl > 10-29 mL/min) *Enoxaparin/Lovenox 30 mg SQ BID (WT < 150 kg, CrCl > 30 mL/min) AND *Sequential Compression Device (SCD) Assessment and Plan Problem List: (1) Diverticulitis ICD Code: K57.92 - Diverticulitis of intestine, part unspecified, without perforation or abscess without bleeding Status: Acute (2) Abdominal pain ICD Code: R10.9 - Unspecified abdominal pain Status: Acute (3) Pyuria ICD Code: N39.0 - Urinary tract infection, site not specified Status: Acute Assessment and Plan 86 y/o female who presented to ED on 06/24/17 for evaluation of abdominal pain, nausea, and diarrhea. Diverticulitis Abdominal pain - CT scan abd/pelvis showed suspected inflammatory change and distal descending colon likely from diverticulitis. No abscess was seen. Midline anterior abdominal wall hernia in the pelvis containing a mild amount of small bowel. No sign of obstruction. - Morphine 2 mg IV q3h PRN for pain - Antibiotics: Cipro 400 mg IV q12h and Metronidazole 500 mg IV q6h - NPO Pyuria possible UTI with urinary retention - CT scan abd/pelvis showed a distended urinary bladder with dilated ureters bilaterally and dilatation of right collecting system. No renal stones were noted. The cause for dilation was not seen. - await urine culture results and adjust antibiotic treatment if needed - Monitor I and Os and bladder scan PRN Chronic renal insufficiency - BUN 12, Creatinine 1.14, and eGFR 45 - consistent with labs from 10/07/15 - repeat BMP in a.m. and follow trends Atrial fibrillation on Eliquis at home - recommend calling Dr. Hunter's office to determine if he wants her to continue given her report of dizziness and multiple falls - continuous cardiac telemetry to monitor heart rate and for arrhythmia DVT prophylaxis - TEDs/SCDs This note was transcribed by elías [Crys Golden]. I, Dr. Jeremiah Mccarty personally performed the history, physical exam, and medical decision making; and confirmed the accuracy of the information in the transcribed note. Authenticated by Dr. Jeremiah Mccarty on 06/24/17 at 23:57. Discussed Condition With ER physician, patient, and RN Physician Certification 2 Midnight Certification Type: Admission for Inpatient Services Order for Inpatient Services The services are ordered in accordance with Medicare regulations or non- Medicare payer requirements, as applicable. In the case of services not specified as inpatient-only, they are appropriately provided as inpatient services in accordance with the 2-midnight benchmark. Estimated LOS (days): 3 days is the estimated time the patient will need to remain in the hospital, assuming treatment plan goals are met and no additional complications. Post-Hospital Plan: Not yet determined Problem Qualifiers (1) Diverticulitis: Qualified Codes: K57.32 - Diverticulitis of large intestine without perforation or abscess without bleeding (2) Abdominal pain: Qualified Codes: R10.30 - Lower abdominal pain, unspecified Crys Golden Jun 24, 2017 23:57 Jeremiah Mccarty MD Jul 13, 2017 02:54
[2017-06-25] VITALS (12 sets, daily range): BP systolic 106–156; BP diastolic 53–66; PULSE 55–75; RESP 17–20; TEMP 97.1–99.3; O2SAT 95–99
[2017-06-25] MEDS ORDERED: PILL SPLITTER OTHER PRN (00:45)
[2017-06-25] MEDS ORDERED: POTASSIUM CHLORIDE INJ 20 MEQ, SODIUM CHLORIDE 23.4% INJ 38.5 MEQ in WATER STERILE FOR ... IV SCH (01:00)
[2017-06-25] MEDS: metroNIDAZOLE 500 MG INJ 100 ML IV SCH ×4 (02:59→23:29)
[2017-06-25] MEDS ORDERED: ACETAMINOPHEN 325 MG TAB PO ONE (05:15)
[2017-06-25 07:26] LABS: AUTOMATED NEUTROPHIL # 5.4 TH/MM3 (1.8-7.7); BASOPHIL % 0.1 % (0.0-2.0); EOSINOPHIL # 0.1 TH/MM3 (0-0.4); HEMATOCRIT 31.1 % (35.0-46.0); HEMO FLAGS DIFF FINAL; LYMPH % 20.6 % (9.0-44.0); LYMPHOCYTE # 1.6 TH/MM3 (1.0-4.8); MEAN CELL VOLUME 94.6 FL (80.0-100.0); MEAN CORPUSCULAR HEMOGLOBIN 32.2 PG (27.0-34.0); MONO % 9.5 % (0.0-8.0); NEUT % 68.8 % (16.0-70.0); PLATELET COUNT 169 TH/MM3 (150-450); RED BLOOD COUNT 3.29 MIL/MM3 (4.00-5.30); RED CELL DISTRIBUTION WIDTH 13.2 % (11.6-17.2); WHITE BLOOD COUNT 7.8 TH/MM3 (4.0-11.0)
[2017-06-25 08:06] LABS: BICARBONATE 26.9 MEQ/L (21.0-32.0); POTASSIUM 3.6 MEQ/L (3.5-5.1)
[2017-06-25] MEDS ORDERED: D5-1/2 NS + KCL 20 MEQ INJ 1,000 ML IV SCH (08:48)
--- NOTE | 2017-06-25 08:58 | HHI.PR ---
Subjective Remarks Follow up for diverticulitis. The patient reports feeling much better. Denies any significant abdominal pain. Denies any nausea or vomiting. Her last BM was yesterday, described as very small amount of loose stools. Denies any fevers/ chills. She now has an appetite and wants to try some liquids. She has no other medical complaints at this time. Objective Vitals Vital Signs Date Time Temp Pulse Resp B/P (MAP) Pulse Ox O2 Delivery O2 Flow Rate FiO2 06/25/17 08:28 98.0 60 20 133/60 (84) 95 06/25/17 07:44 55 06/25/17 04:01 75 06/25/17 03:58 99.3 74 18 123/56 (78) 96 06/25/17 00:30 98 06/25/17 00:30 98 Nasal Cannula 2.00 06/25/17 00:12 69 06/24/17 23:43 97.8 73 18 136/63 (87) 94 06/24/17 22:51 06/24/17 22:15 78 16 123/60 (81) 99 Room Air 06/24/17 21:23 88 16 183/76 (111) 100 06/24/17 18:16 97.7 83 19 186/77 (113) 97 Room Air 06/24/17 17:49 18 06/24/17 16:00 99.2 84 16 178/74 (108) 95 I/O 06/24/17 06/24/17 06/24/17 06/25/17 06/25/17 06/25/17 07:00 15:00 23:00 07:00 15:00 23:00 Intake Total 300 ml 0 ml Output Total 450 ml Balance 300 ml -450 ml Intake Oral 0 ml IV Total 300 ml Output Urine Total 450 ml Bladder Scan Volume Amount 870 ml 910 ml # Voids 1 Result Diagram: 06/25/17 0625 06/25/17624 Imaging Last Impressions Abdomen/Pelvis CT 06/24/17 [id number] Signed Impressions: Service Date/Time: June 20:11 - CONCLUSION: 1. Suspected inflammatory change in the distal descending colon likely from diverticulitis. An abscess is not seen. 2. Midline anterior abdominal wall hernia in the pelvis containing a mild amount of small bowel. Significant bowel dilatation to suggest obstruction is not seen. 3. Distended urinary bladder. The ureters are dilatated bilaterally. There is some dilatation of the right collecting system. No renal stones are seen. The cause for the distended bladder is not seen. 4. Pneumobilia. This should be correlated if the patient has had any recent interventions in the biliary system. The patient appears to be status post cholecystectomy. Rodrigo Restrepo MD Objective Remarks GENERAL: Well-nourished, well-developed pleasant elderly female patient in NAD. SKIN: Warm and dry. No rash. HEENT: Normocephalic. Atraumatic.Pupils equal and round. Mucous membranes pink and moist. CARDIOVASCULAR: Regular rate and rhythm. S1, S2 noted. No murmur appreciated. RESPIRATORY: No accessory muscle use. Clear to auscultation. Breath sounds equal bilaterally. GASTROINTESTINAL: Abdomen soft, non-tender, nondistended. Normoactive bowel sounds x4. MUSCULOSKELETAL: No obvious deformities. Extremities without clubbing, cyanosis , or edema. NEUROLOGICAL: Awake and alert. No obvious cranial nerve deficits. Motor grossly within normal limits. Normal speech. PSYCHIATRIC: Appropriate mood and affect; insight and judgment normal. Medications and IVs Current Medications Medications (Trade) Dose Ordered Sig/Elen Route Start Time Stop Time Status Last Admin (NS Flush) 2 ml UNSCH PRN IV FLUSH 06/24/17 21:30 (NS Flush) 2 ml BID IV FLUSH 06/25/17 09:00 (Zofran Inj) 4 mg Q6H PRN IVP 06/24/17 21:30 (Narcan Inj) 0.4 mg UNSCH PRN IV PUSH 06/24/17 21:30 Ciprofloxacin/ Dextrose 200 ml @ 200 mls/hr Q12H IV 06/25/17 09:00 Metronidazole 100 ml @ 100 mls/hr Q6H IV 06/25/17 03:00 06/25/17 02:59 (Aspirin Chew) 81 mg DAILY PO 06/25/17 09:00 (Imdur) 30 mg DAILY PO 06/25/17 09:00 (Pravachol) 40 mg DAILY PO 06/25/17 09:00 (Mag-Ox) 400 mg DAILY PO 06/25/17 09:00 (Toprol Xl) 25 mg BID PO 06/25/17 09:00 (Protonix) 20 mg DAILY PO 06/25/17 09:00 (Aldactone) 25 mg MoTh PO 06/28/17 09:00 (Tricor) 48 mg DAILY PO 06/25/17 09:00 (Prinivil) 2.5 mg HS PO 06/25/17 21:00 (Pill Splitter) 1 ea UNSCH PRN OTHER 06/25/17 00:45 (Morphine Inj) 2 mg Q3H PRN IV PUSH 06/25/17 01:00 A/P Problem List: (1) Diverticulitis ICD Code: K57.92 - Diverticulitis of intestine, part unspecified, without perforation or abscess without bleeding Status: Acute (2) Abdominal pain ICD Code: R10.9 - Unspecified abdominal pain Status: Acute (3) Pyuria ICD Code: N39.0 - Urinary tract infection, site not specified Status: Acute Assessment and Plan 86-year-old female with hx of HTN, CAD s/p stents x3, CHF, afib on Eliquis, COPD , CVA x3, right breast cancer, nephrolithiasis, diverticulosis, presents with 4 day history of abdominal pain, nausea, and diarrhea. Acute Diverticulitis: presented with abdominal pain/nausea/diarrhea. CT abd/ pelvis images reviewed, shows suspected inflammatory change in the distal descending colon likely from diverticulitis; No abscess was seen; Midline anterior abdominal wall hernia in the pelvis containing a mild amount of small bowel; No sign of obstruction. Afebrile, no leukocytosis. - Continue on antibiotics with IV Cipro and IV Flagyl - Supportive treatment with IVF D5 1/2 NS w/KCl, antiemetics prn, and pain control with IV morphine prn - Initially kept NPO for bowel rest, now symptoms much improved, advance to clear liquids Pyuria, possible UTI with urinary retention: CT abd/pelvis showed a distended urinary bladder with dilated ureters bilaterally and dilatation of right collecting system; No renal stones were noted; cause for dilation was not seen. - await urine culture results and adjust antibiotic treatment if needed - Monitor I and Os - bladder scan PRN Chronic renal insufficiency: BUN 12, Creatinine 1.14, and eGFR 45 - consistent with labs from 10/07/15 - repeat BMP shows some improvement - continue gentle IVF, caution with hx of CHF Atrial fibrillation: on Eliquis at home - recommend patient calling Dr. Hunter's office to determine if he wants her to continue given her report of falls; however will continue for now with history of stroke - Continue Eliquis - continuous cardiac telemetry to monitor heart rate and for arrhythmia DVT prophylaxis- Eliquis, TEDs/SCDs Discharge Planning Possible discharge tomorrow if symptoms continue to improve. Patient would like [facility] arranged, case management consulted. Problem Qualifiers (1) Diverticulitis: Qualified Codes: K57.32 - Diverticulitis of large intestine without perforation or abscess without bleeding (2) Abdominal pain: Qualified Codes: R10.30 - Lower abdominal pain, unspecified Chastity Dietz PA-C Jun 25, 2017 8:58 am
--- NOTE | 2017-06-25 09:00 | HHI.FF ---
Face to Face Verification Diagnosis: (1) Diverticulitis (2) Chronic anticoagulation (3) Falls (4) Impaired mobility and ADLs (5) Pyuria (6) CAD (coronary artery disease) (7) Atrial fibrillation (8) Hyperlipidemia Physical Therapy Order: Evaluate and Treat, Improve ambulation, Strength and gait training Home Health Nursing Order: Medical education Signs/symptoms of disease process CHF education Nursing assessment with vital signs Label Maker Order: To Evaluate: Support services Order: To Provide: Long range planning, Community services I have seen patient Marcelina Rahman on 06/25/17. My clinical findings support the need for the requested home health care services because: Ltd mobility - disease progression Deconditioned w/ increased weakness Limited ability to care for self I certify that my clinical findings support that this patient is homebound because: Unsteady gait/balance Unsafe to leave home unassisted Unable to use public transportation Chastity Dietz PA-C Jun 25, 2017 9:00 am
[2017-06-25] MEDS: APIXABAN 5 MG TABLET PO SCH ×2 (09:13→22:02)
[2017-06-25] MEDS: FENOFIBRATE 48 MG TAB PO SCH (09:13)
[2017-06-25] MEDS: PANTOPRAZOLE SOD 20 MG DELAYED RELEASE TAB PO SCH (09:13)
[2017-06-25] MEDS: ISOSORBIDE MONONITRATE 30 MG TAB PO SCH (09:13)
[2017-06-25] MEDS: MAGNESIUM OXIDE 400 MG TAB PO SCH (09:13)
[2017-06-25] MEDS: ASPIRIN 81 MG CHEW TAB PO SCH (09:13)
[2017-06-25] MEDS: METOPROLOL SUCCINATE 25 MG EXTENDED RELEASE TAB PO SCH ×2 (09:13→22:03)
[2017-06-25] MEDS: PRAVASTATIN SOD 40 MG TAB PO SCH (09:13)
[2017-06-25] MEDS: SODIUM CHLORIDE 0.9% FLUSH 10 ML FLUSH IV FLUSH SCH ×2 (09:14→22:03)
[2017-06-25] MEDS: CIPROFLOXACIN 400 MG PREMIX 200 ML IV SCH ×2 (09:15→22:01)
--- NOTE | 2017-06-25 11:34 | PD.CONS ---
[facility] Service Urology Consult Requested By Crys Golden NP Primary Care Physician Og Jacinto MD Diagnosis: (1) Diverticulitis ICD Code: K57.92 - Diverticulitis of intestine, part unspecified, without perforation or abscess without bleeding (2) Abdominal pain ICD Code: R10.9 - Unspecified abdominal pain (3) Pyuria ICD Code: N39.0 - Urinary tract infection, site not specified History of Present Illness 86-year-old female who presented to the emergency room with a four-day history of lower abdominal pain. Patient also complained of nausea but denied any vomiting. A CT scan study was performed that demonstrated a markedly distended urinary bladder with dilated ureters bilaterally. No renal or ureteral stones were seen. Also noted were changes involving the distal descending colon consistent with diverticulitis. Subsequent to the CT scan a Judge catheter was placed with immediate improvement in the patient's symptoms. A urology consult was placed regarding the abnormal CT findings. At the time of consultation the patient was not in any acute distress and denied any pain. She denied a prior history of difficulty with urination. She denied dysuria or gross hematuria. Review of Systems Constitutional: DENIES: Fever, Night Sweats Gastrointestinal: COMPLAINS OF: Abdominal pain (lower abdomen resolved after Judge placed) Genitourinary: DENIES: Hematuria, Dysuria Except as stated in HPI: all other systems reviewed are Neg Past Family Social History Past Medical History Hypertension Coronary artery disease Congestive heart failure COPD Atrial fibrillation Nephrolithiasis Multiple CVAs Right sided breast cancer Multiple skin cancers Past Surgical History Status post cardiac stent 3 Status post right breast lumpectomy with radiation therapy Orthopedic procedure for lower extremity fracture Status post excision multiple skin cancers Reported Medications Refer to EMR Allergies: Coded Allergies: Sulfa (Sulfonamide Antibiotics) (Verified Allergy, Severe, 06/24/17) codeine (Verified Allergy, Severe, Hallucinations, 06/24/17) & HIVES penicillin G (Verified Allergy, Severe, ITCHING, 06/24/17) Active Ordered Medications Refer to EMR Family History Potential Coronary artery disease Social History Former smoker who quit 40 years ago Denies alcohol or intravenous drug abuse Physical Exam Vital Signs Date Time Temp Pulse Resp B/P (MAP) Pulse Ox O2 Delivery O2 Flow Rate FiO2 06/25/17 09:18 Nasal Cannula 2.00 06/25/17 08:28 98.0 60 20 133/60 (84) 95 06/25/17 07:44 55 06/25/17 04:01 75 06/25/17 03:58 99.3 74 18 123/56 (78) 96 06/25/17 00:30 98 06/25/17 00:30 98 Nasal Cannula 2.00 06/25/17 00:12 69 06/24/17 23:43 97.8 73 18 136/63 (87) 94 06/24/17 22:51 06/24/17 22:15 78 16 123/60 (81) 99 Room Air 06/24/17 21:23 88 16 183/76 (111) 100 06/24/17 18:16 97.7 83 19 186/77 (113) 97 Room Air 06/24/17 17:49 18 06/24/17 16:00 99.2 84 16 178/74 (108) 95 Physical Exam GENERAL: This is a well-nourished, well-developed patient, in no apparent distress. SKIN: No rashes, ecchymoses or lesions. Cool and dry. HEAD: Atraumatic. Normocephalic. No temporal or scalp tenderness. EYES: Pupils equal round and reactive. Extraocular motions intact. No scleral icterus. No injection or drainage. ENT: Nose without bleeding, purulent drainage or septal hematoma. Throat without erythema, tonsillar hypertrophy or exudate. Uvula midline. Airway patent. NECK: Trachea midline. No JVD or lymphadenopathy. Supple, nontender, no meningeal signs. GASTROINTESTINAL: Abdomen soft, non-tender, nondistended. No hepato-splenomegaly , or palpable masses. No guarding. GENITOURINARY: No CVA tenderness. Judge catheter draining clear yellow urine. MUSCULOSKELETAL: Extremities without clubbing, cyanosis, or edema. No joint tenderness, effusion, or edema noted. No calf tenderness. Negative Homans sign bilaterally. NEUROLOGICAL: Awake and alert. Cranial nerves II through XII intact. Motor and sensory grossly within normal limits. Five out of 5 muscle strength in all muscle groups. Normal speech. Laboratory Tests Test 06/24/17 16:20 06/24/17 18:05 06/25/17 06:25 Urine Color LIGHT-YELLOW Urine Turbidity CLEAR Urine pH 7.0 Urine Specific [place] 1.006 Urine Protein NEG Urine Glucose (UA) NEG Urine Ketones NEG Urine Occult Blood NEG Urine Nitrite NEG Urine Bilirubin NEG Urine Urobilinogen LESS THAN 2.0 Urine Leukocyte Esterase LARGE Urine RBC LESS THAN 1 Urine WBC 21 Urine Squamous Epithelial Cells <1 Microscopic Urinalysis Comment CULTURE INDICATED White Blood Count 9.8 7.8 Red Blood Count 3.78 3.29 Hemoglobin 12.1 10.6 Hematocrit 35.7 31.1 Mean Corpuscular Volume 94.3 94.6 Mean Corpuscular Hemoglobin 32.0 32.2 Mean Corpuscular Hemoglobin Concent 33.9 34.0 Red Cell Distribution Width 13.3 13.2 Platelet Count 200 169 Mean Platelet Volume 8.2 8.5 Neutrophils (%) (Auto) 73.1 68.8 Lymphocytes (%) (Auto) 17.3 20.6 Monocytes (%) (Auto) 8.3 9.5 Eosinophils (%) (Auto) 1.1 1.0 Basophils (%) (Auto) 0.2 0.1 Neutrophils # (Auto) 7.2 5.4 Lymphocytes # (Auto) 1.7 1.6 Monocytes # (Auto) 0.8 0.7 Eosinophils # (Auto) 0.1 0.1 Basophils # (Auto) 0.0 0.0 CBC Comment DIFF FINAL DIFF FINAL Differential Comment Prothrombin Time 11.7 Prothromb Time International Ratio 1.1 Activated Partial Thromboplast Time 32.8 Blood Urea Nitrogen 12 12 Creatinine 1.14 1.02 Random Glucose 112 100 Total Protein 7.9 Albumin 4.1 Calcium Level 9.4 8.6 Alkaline Phosphatase 56 Aspartate Amino Transf (AST/SGOT) 21 Alanine Aminotransferase (ALT/SGPT) 18 Total Bilirubin 1.0 Sodium Level 137 140 Potassium Level 3.8 3.6 Chloride Level 102 106 Carbon Dioxide Level 28.2 26.9 Anion Gap 7 7 Estimat Glomerular Filtration Rate 45 51 Lactic Acid Level 0.9 Lipase 109 Date/Time Source Procedure Growth Status 06/24/17 16:20 Urine Clean Catch Urine Culture Pending Received Result Diagram: 06/25/17 0625 06/25/17 0625 Personally reviewed images: Yes Imaging Last Impressions Abdomen/Pelvis CT 06/24/17 1182 Signed Impressions: Service Date/Time: June 20:11 - CONCLUSION: 1. Suspected inflammatory change in the distal descending colon likely from diverticulitis. An abscess is not seen. 2. Midline anterior abdominal wall hernia in the pelvis containing a mild amount of small bowel. Significant bowel dilatation to suggest obstruction is not seen. 3. Distended urinary bladder. The ureters are dilatated bilaterally. There is some dilatation of the right collecting system. No renal stones are seen. The cause for the distended bladder is not seen. 4. Pneumobilia. This should be correlated if the patient has had any recent interventions in the biliary system. The patient appears to be status post cholecystectomy. Rodrigo Restrepo MD Assessment and Plan Assessment and Plan Urologic impression: Acute onset urinary retention of indeterminate etiology Recommendations: #1 maintain Judge catheter to gravity drainage #2 okay to discharge patient home with Judge and have her follow up at my office in one week for a repeat trial of voiding [phone] #3 May require additional urologic workup to include cystoscopy and urodynamics Problem Qualifiers (1) Diverticulitis: Qualified Codes: K57.32 - Diverticulitis of large intestine without perforation or abscess without bleeding (2) Abdominal pain: Qualified Codes: R10.30 - Lower abdominal pain, unspecified ScagliaPablo MD Jun 25, 2017 11:33
--- NOTE | 2017-06-25 12:23 | EKG ---
Date Performed: 06/24/2017 Time Performed: 18:11:37 PTAGE: 86 years EKG: ATRIAL FIBRILLATION MARKED LEFT AXIS DEVIATION INCOMPLETE RIGHT BUNDLE BRANCH BLOCK SEPTAL MYOCARDIAL INFARCTION Anteroseptal myocardial infarction - age indeterminate ABNORMAL ECG PREVIOUS TRACING : 10/07/2015 14.31 Compared to prior tracing no significant change DOCTOR: Raudel White Interpretating Date/Time 06/25/2017 12:23:25
[2017-06-25] MEDS: MORPHINE SULFATE 2 MG/ML INJ IV PUSH PRN ×2 (16:27→23:30)
[2017-06-25] MEDS ORDERED: LISINOPRIL 5 MG TAB PO SCH (21:00)
[2017-06-26] VITALS: PULSE 56
[2017-06-26 03:49] VITALS: BP 121/55; PULSE 62; RESP 16; TEMP 98.6; O2SAT 98
[2017-06-26 04:00] VITALS: PULSE 63
[2017-06-26] MEDS: metroNIDAZOLE 500 MG INJ 100 ML IV SCH ×2 (05:49→11:34)
[2017-06-26 06:49] LABS: BASOPHIL % 0.3 % (0.0-2.0); EOSINOPHIL # 0.1 TH/MM3 (0-0.4); EOSINOPHIL % 1.8 % (0.0-4.0); HEMATOCRIT 30.8 % (35.0-46.0); HEMO FLAGS DIFF FINAL; LYMPH % 27.2 % (9.0-44.0); LYMPHOCYTE # 1.3 TH/MM3 (1.0-4.8); MEAN CELL VOLUME 94.3 FL (80.0-100.0); MEAN CORPUSCULAR HEMOGLOBIN 31.8 PG (27.0-34.0); MEAN CORPUSCULAR HGB CONC 33.7 % (32.0-36.0); MONO % 9.1 % (0.0-8.0); NEUT % 61.6 % (16.0-70.0); PLATELET COUNT 178 TH/MM3 (150-450); RED BLOOD COUNT 3.26 MIL/MM3 (4.00-5.30); RED CELL DISTRIBUTION WIDTH 13.1 % (11.6-17.2); WHITE BLOOD COUNT 4.9 TH/MM3 (4.0-11.0)
[2017-06-26 07:00] LABS: BICARBONATE 26.8 MEQ/L (21.0-32.0); MAGNESIUM 1.7 MG/DL (1.5-2.5); POTASSIUM 3.8 MEQ/L (3.5-5.1)
[2017-06-26 08:00] VITALS: PULSE 50
[2017-06-26 08:27] VITALS: BP 120/60; PULSE 99; RESP 20; TEMP 98.6; O2SAT 96
[2017-06-26] MEDS: SODIUM CHLORIDE 0.9% FLUSH 10 ML FLUSH IV FLUSH SCH (09:00)
[2017-06-26] MEDS: PRAVASTATIN SOD 40 MG TAB PO SCH (09:00)
[2017-06-26] MEDS: CIPROFLOXACIN 400 MG PREMIX 200 ML IV SCH (10:11)
[2017-06-26] MEDS: FENOFIBRATE 48 MG TAB PO SCH (10:13)
[2017-06-26] MEDS: MAGNESIUM OXIDE 400 MG TAB PO SCH ×2 (10:14→10:16)
[2017-06-26] MEDS: PANTOPRAZOLE SOD 20 MG DELAYED RELEASE TAB PO SCH (10:15)
[2017-06-26] MEDS: APIXABAN 5 MG TABLET PO SCH (10:15)
[2017-06-26] MEDS: METOPROLOL SUCCINATE 25 MG EXTENDED RELEASE TAB PO SCH (10:15)
[2017-06-26] MEDS: ASPIRIN 81 MG CHEW TAB PO SCH (10:16)
[2017-06-26] MEDS: ISOSORBIDE MONONITRATE 30 MG TAB PO SCH (10:17)
[2017-06-26] MEDS ORDERED: CIPR-9 PO (10:22)
[2017-06-26] MEDS ORDERED: METR-1 PO (10:22)
--- NOTE | 2017-06-26 10:23 | HHI.DCPOC ---
Discharge Care Plan Diagnosis: (1) Diverticulitis (2) Abdominal pain Your Health Problems Are: Inflammation Additional Problems Nausea Vomiting Abdominal pain Goals to Promote Your Health * To prevent worsening of your condition and complications * To maintain your health at the optimal level Directions to Meet Your Goals Take your medications as prescribed Follow your dietary instruction Follow activity as directed Keep your appointments as scheduled Take your immunizations and boosters as scheduled If your symptoms worsen call your PCP, if no PCP go to Urgent Care Center or Emergency Room Smoking is Dangerous to Your Health. Avoid second hand smoke Call the 24-hour hour crisis hotline for domestic abuse at Miryam Felder Jun 26, 2017 10:23
--- NOTE | 2017-06-26 10:28 | HHI.PR ---
Subjective Remarks Follow up for diverticulitis. Patient seen and examined, lying in bed comfortably. Denies any further nausea or vomiting. Denies any diarrhea or abdominal pain. Tolerating PO intake. Eager to get home. Denies any recent fever , chills, cough, shortness of breath. Objective Vitals Vital Signs Date Time Temp Pulse Resp B/P (MAP) Pulse Ox O2 Delivery O2 Flow Rate FiO2 06/26/17 08:27 98.6 99 20 120/60 (80) 96 06/26/17 04:00 63 06/26/17 03:49 98.6 62 16 121/55 (77) 98 06/26/17 00:00 56 06/25/17 23:35 12 06/25/17 23:17 97.1 58 17 138/64 (88) 99 06/25/17 20:53 97.9 66 17 156/66 (96) 99 06/25/17 20:10 Nasal Cannula 2.00 06/25/17 20:05 63 06/25/17 16:13 98.2 66 20 110/60 (77) 96 06/25/17 15:29 55 06/25/17 12:13 97.9 60 18 106/53 (70) 95 I/O 06/25/17 06/25/17 06/25/17 06/26/17 06/26/17 06/26/17 07:00 15:00 23:00 07:00 15:00 23:00 Intake Total 0 ml 300 ml 1756 ml 880 ml Output Total 450 ml 1400 ml 700 ml Balance -450 ml 300 ml 356 ml 180 ml Intake Oral 0 ml 990 ml 480 ml IV Total 300 ml 766 ml 400 ml Output Urine Total 450 ml 1400 ml 700 ml Bladder Scan Volume Amount 870 ml 910 ml # Voids 1 Result Diagram: 06/26/17 0530 06/26/1730 Imaging Last Impressions Abdomen/Pelvis CT 06/24/17 2244 Signed Impressions: Service Date/Time: June 20:11 - CONCLUSION: 1. Suspected inflammatory change in the distal descending colon likely from diverticulitis. An abscess is not seen. 2. Midline anterior abdominal wall hernia in the pelvis containing a mild amount of small bowel. Significant bowel dilatation to suggest obstruction is not seen. 3. Distended urinary bladder. The ureters are dilatated bilaterally. There is some dilatation of the right collecting system. No renal stones are seen. The cause for the distended bladder is not seen. 4. Pneumobilia. This should be correlated if the patient has had any recent interventions in the biliary system. The patient appears to be status post cholecystectomy. Rodrigo Restrepo MD Objective Remarks GENERAL: Well-nourished, well-developed pleasant elderly female patient in NAD. SKIN: Warm and dry. No rash. HEENT: Normocephalic. Atraumatic.Pupils equal and round. Mucous membranes pink and moist. CARDIOVASCULAR: Regular rate and rhythm. S1, S2 noted. No murmur appreciated. RESPIRATORY: No accessory muscle use. Clear to auscultation. Breath sounds equal bilaterally. GASTROINTESTINAL: Abdomen soft, non-tender, nondistended. Normoactive bowel sounds x4. MUSCULOSKELETAL: No obvious deformities. Extremities without clubbing, cyanosis , or edema. NEUROLOGICAL: Awake and alert. No obvious cranial nerve deficits. Motor grossly within normal limits. Normal speech. PSYCHIATRIC: Appropriate mood and affect; insight and judgment normal. A/P Problem List: (1) Diverticulitis ICD Code: K57.92 - Diverticulitis of intestine, part unspecified, without perforation or abscess without bleeding Status: Acute (2) Abdominal pain ICD Code: R10.9 - Unspecified abdominal pain Status: Acute (3) Pyuria ICD Code: N39.0 - Urinary tract infection, site not specified Status: Acute Assessment and Plan 86-year-old female with hx of HTN, CAD s/p stents x3, CHF, afib on Eliquis, COPD , CVA x3, right breast cancer, nephrolithiasis, diverticulosis, presents with 4 day history of abdominal pain, nausea, and diarrhea. Acute Diverticulitis: presented with abdominal pain/nausea/diarrhea. CT abd/ pelvis images reviewed, shows suspected inflammatory change in the distal descending colon likely from diverticulitis; No abscess was seen; Midline anterior abdominal wall hernia in the pelvis containing a mild amount of small bowel; No sign of obstruction. Afebrile, no leukocytosis. - Continue on antibiotics with Cipro and Flagyl PO on discharge. - Pain improved. - Initially kept NPO for bowel rest, now symptoms much improved, advance to clear liquids. tolerating well, recommended to advance as tolerated upon discharge. Pyuria, possible UTI with urinary retention: CT abd/pelvis showed a distended urinary bladder with dilated ureters bilaterally and dilatation of right collecting system; No renal stones were noted; cause for dilation was not seen. - Urine culture with probable contaminants. - Monitor I and Os Chronic renal insufficiency: BUN 10, Creatinine 0.9, and eGFR 59 - repeat BMP shows some improvement. - Tolerating PO intake. Atrial fibrillation: on Eliquis at home - recommend patient calling Dr. Hunter's office to determine if he wants her to continue given her report of falls; however will continue for now with history of stroke - Continue Eliquis Urinary retention: Patient seen by Dr. Kenney. FC placed and orders to follow up with him in the office in 1 week. Patient agreeable to plan. Denies any urinary complaints. [facility] ordered for discharge. Discharge Planning Discharge today. Problem Qualifiers (1) Diverticulitis: Qualified Codes: K57.32 - Diverticulitis of large intestine without perforation or abscess without bleeding (2) Abdominal pain: Qualified Codes: R10.30 - Lower abdominal pain, unspecified Miryam Felder Jun 26, 2017 10:28
[2017-06-26] MEDS ORDERED: MORP1SOL3 PO (11:29)
[2017-06-28] MEDS ORDERED: SPIRONOLACTONE 25 MG TAB PO SCH (09:00)
== END 2017-06-26 16:30 | disposition home or self-care (01) ==
LOC: NEPD 15:59 → NEDA 21:30 → OBSVTOIN 22:57 → INTOOBSV 22:57 → NEPGCP 23:06
PROVIDERS: ADMIT Hospitalist; ATTEND Hospitalist
DX: K57.92 Diverticulitis of intestine, part unspecified, without perforation or abscess without bleeding (principal); N39.0 Urinary tract infection, site not specified; I13.0 Hypertensive heart and chronic kidney disease with heart failure and stage 1 through stage 4 chronic kidney disease, or unspecified chronic kidney disease; D64.9 Anemia, unspecified; I48.91 Unspecified atrial fibrillation; E78.00 Pure hypercholesterolemia, unspecified; I25.10 Atherosclerotic heart disease of native coronary artery without angina pectoris; K21.9 Gastro-esophageal reflux disease without esophagitis; Z86.73 Personal history of transient ischemic attack (TIA), and cerebral infarction without residual deficits; Z79.01 Long term (current) use of anticoagulants
CPT/HCPCS: 74177; 80048; 80053; 81001; 83605; 83690; 83735; 85025; 85610; 85730; 87086; 93005; 96365; 96366; 96368; 96375; 96376; 99285; G0378; J0744; J2270; J2405; J3480; Q9967

== ENCOUNTER 2017-07-09 14:07 | Emergency (ER) | payer OTHER ==
[~2017-07-09] VITALS: Ht 160 cm; Wt 73.0 kg
[~2017-07-09 14:07] MED LIST changes: +CALCTAB19 PO; -FENO134C PO; +FENO54TA PO; -HYDR-3533 PO; +ISOS30TA3 PO; -LISI-515 PO; +LISI2.5T3 PO; +MAGN400T2 PO; +METO25TA6 PO; -METO50TA11 PO; +SPIR25TA PO; +VITA10002 PO; +VITA100064 PO; +VITA400T20 PO
[2017-07-09 14:17] VITALS: BP 182/79; PULSE 72; RESP 15; TEMP 98.4; O2SAT 95
[2017-07-09 14:28] VITALS: BP 167/74; PULSE 64; RESP 18; O2SAT 97
--- NOTE | 2017-07-09 15:45 | PD ---
HPI Chief Complaint: Hypertension Time Seen by Provider: 14:26 Travel History International Travel<30 days: No Contact w/Intl Traveler<30days: No Traveled to known affect area: No History of Present Illness HPI The patient was seen and examined in the presence of the nurse. This patient complains of elevated blood pressure. She checked her pressure at home and called her managing physician because of that. The nurse told her to come to the ER. She doesn't have any physical complaints. She feels rather well other than being nervous about her blood pressure. Current pressure is 168 systolic. Severity is mild. No chest pain or headache or neurologic complaint. PFSH Past Medical History Hx Anticoagulant Therapy: Yes Anemia: Yes Arthritis: Yes Asthma: No Atrial Fibrillation: Yes Autoimmune Disease: No Blood Disorders: No Anxiety: No Depression: No Heart Rhythm Problems: Yes Cancer: Yes (RT BREAST) Cardiac Catheterization: Yes Cardiovascular Problems: Yes (3 stents) High Cholesterol: Yes Chemotherapy: No Chest Pain: Yes Congestive Heart Failure: Yes COPD: Yes Cerebrovascular Accident: Yes (TIA ) Coronary Artery Disease: Yes Diabetes: No Diminished Hearing: No Endocrine: No Gastrointestinal Disorders: Yes (ULCERS 20 YEARS AGO; C-DIFF) GERD: Yes Glaucoma: No Genitourinary: Yes (current uti) Headaches: No Hepatitis: No Hiatal Hernia: No Hypertension: Yes Immune Disorder: No Implanted Vascular Access Dvce: No Kidney Stones: No Medical other: No Musculoskeletal: Yes Neurologic: Yes Psychiatric: No Reproductive: No Respiratory: Yes (copd/ sleep apnea?) Immunizations Current: Yes Migraines: No Myocardial Infarction: No Radiation Therapy: Yes Renal Failure: No Seizures: No Sickle Cell Disease: No Sleep Apnea: Yes Thyroid Disease: No Ulcer: Yes Tetanus Vaccination: < 5 Years Influenza Vaccination: Yes ?: Not Menopausal: Yes Past Surgical History Abdominal Surgery: Yes (hernia repair) AICD: No Appendectomy: No Arteriovenous Shunt: No Cardiac Surgery: Yes Cholecystectomy: Yes Coronary Stent: Yes (X3) Ear Surgery: No Endocrine Surgery: No Eye Surgery: No Genitourinary Surgery: No Gynecologic Surgery: Yes (RT BRST LUMPECTOMY) Hysterectomy: Yes Insulin Pump: No Joint Replacement: Yes (R HIP) Neurologic Surgery: No Oral Surgery: No Pacemaker: No Thoracic Surgery: No Other Surgery: Yes (RIGHT BREAST LUMPECTOMY) Social History Alcohol Use: Yes (OCC. WINE) Tobacco Use: No Substance Use: No Allergies-Medications (Allergen,Severity, Reaction): Coded Allergies: Sulfa (Sulfonamide Antibiotics) (Verified Allergy, Severe, 07/06/17) codeine (Verified Allergy, Severe, Hallucinations, 07/06/17) & HIVES penicillin G (Verified Allergy, Severe, ITCHING, 07/06/17) Reported Meds & Prescriptions Reported Meds & Active Scripts Active Reported Calcium 600+D 200 (Calcium Carbonate-Vitamin D) 600-200 Mg-Unit Tab 1 Tab PO DAILY Vitamin E (Vitamin E Mixed) 400 Unit Tablet 400 Units PO DAILY Vitamin D3 (Cholecalciferol) 1,000 Unit Tab 1,000 Units PO DAILY Vitamin B-12 (Cyanocobalamin) 1,000 Mcg Tab 1,000 Mcg PO DAILY Isosorbide Mononitrate ER (Isosorbide Mononitrate) 30 Mg Gerber 30 Mg PO DAILY Magnesium Oxide 400 Mg Tab 400 Mg PO DAILY Spironolactone 25 Mg Tab 25 Mg PO MOTH Take 1 tablet (25mg) daily on Wednesday and Gabapentin 100 Mg Cap 200 Mg PO HS Metoprolol Succinate ER 24 HR (Metoprolol Succinate) 25 Mg Tab 25 Mg PO BID Lisinopril 2.5 Mg Tab 2.5 Mg PO HS Fenofibrate 54 Mg Tab 54 Mg PO DAILY Protonix (Pantoprazole Sodium) 20 Mg Tab 20 Mg PO DAILY Nitroglycerin SL (Nitroglycerin) 0.4 Mg Subl 0.4 Mg SL DIRECTED PRN ONE TABLET UNDER THE TONGUE NEEDED FOR CHEST PAIN, MAY REPEAT EVERY FIVE MINUTES FOR A TOTAL OF 3 DOSES OR CALL 911 IF NO RELIEF Lovastatin 40 Mg Tab 40 Mg PO DAILY Gabapentin 100 Mg Cap 100 Mg PO DAILY IN THE AM Aspirin 81 Mg Chew 81 Mg PO DAILY Eliquis (Apixaban) 5 Mg Tab 5 Mg PO BID Review of Systems General / Constitutional: No: Fever Eyes: No: Visual changes HENT: No: Headaches Cardiovascular: No: Chest Pain or Discomfort Respiratory: No: Shortness of Breath Gastrointestinal: No: Abdominal Pain Genitourinary: No: Dysuria Musculoskeletal: No: Pain Skin: No Rash Neurologic: No: Weakness Psychiatric: No: Depression Endocrine: No: Polydipsia Hematologic/Lymphatic: No: Easy Bruising Physical Exam Narrative GENERAL: Well-nourished, well-developed patient in no apparent distress. SKIN: Focused skin assessment reveals no rash and nodules. Skin is Warm and dry. HEAD: Atraumatic. Normocephalic. EYES: Pupils equal and round. No scleral icterus. No injection or drainage. ENT: No nasal bleeding or discharge. Mucous membranes pink and moist. NECK: Trachea midline. No JVD. CARDIOVASCULAR: Regular rate and rhythm. No murmur appreciated. RESPIRATORY: No accessory muscle use. Clear to auscultation. Breath sounds equal bilaterally. GASTROINTESTINAL: Abdomen soft, non-tender, nondistended. Hepatic and splenic margins not palpable. MUSCULOSKELETAL: No obvious deformities. No clubbing. No cyanosis. No edema. NEUROLOGICAL: Awake and alert. No obvious cranial nerve deficits. Motor grossly within normal limits. Normal speech. PSYCHIATRIC: Appropriate mood and affect; insight and judgment normal. Data Data Last Documented VS Vital Signs Date Time Temp Pulse Resp B/P (MAP) Pulse Ox O2 Delivery O2 Flow Rate FiO2 07/09/17 14:28 64 18 167/74 (105) 97 Room Air 07/09/17 14:17 98.4 MDM Medical Decision Making Medical Screen Exam Complete: Yes Emergency Medical Condition: Yes Medical Record Reviewed: Yes Differential Diagnosis Accelerated hypertension, hypertensive urgency, noncompliance Narrative Course I have reviewed the patient's electronic medical record. Patient has an elevated blood pressure but not emergently so. We had a lengthy discussion regarding the importance of long-term monitoring and the long-term trend her blood pressure. No evidence that acutely lowering it now to normal is helpful in the long run She will track it once or twice a day and follow-up with her physician to discuss any medication changes that should be made Diagnosis Primary Impression: Accelerated hypertension Additional Instructions: Check and record blood pressure daily The patient was advised to follow up with their physician and return if they worsen. Med/Other Pt SpecificInfo: Other Disposition: 01 DISCHARGE HOME Condition: Stable Ron Brantley MD Jul 09, 2017 15:45
--- NOTE | 2017-07-11 13:48 | EKG ---
Date Performed: 07/09/2017 Time Performed: 13:24:22 PTAGE: 86 years EKG: ATRIAL FIBRILLATION MARKED LEFT AXIS DEVIATION INCOMPLETE RIGHT BUNDLE BRANCH BLOCK SEPTAL MYOCARDIAL INFARCTION, AGE UNDTEREMINED Compared to prior tracing no significant change PREVIOUS TRACING : 06/24/2017 18.11 DOCTOR: Raudel White Interpretating Date/Time 07/14/2017 07:27:12
== END 2017-07-09 16:06 | disposition home or self-care (01) ==
LOC: NEPE 14:07
DX: I16.0 Hypertensive urgency (principal); I48.91 Unspecified atrial fibrillation; E78.00 Pure hypercholesterolemia, unspecified; J44.9 Chronic obstructive pulmonary disease, unspecified; K21.9 Gastro-esophageal reflux disease without esophagitis; Z86.73 Personal history of transient ischemic attack (TIA), and cerebral infarction without residual deficits; G47.30 Sleep apnea, unspecified
CPT/HCPCS: 93005; 99282

== ENCOUNTER 2017-09-11 15:08 | Inpatient (IN) | payer OTHER, MEDICARE ==
[~2017-09-11] VITALS: Ht 160 cm; Wt 76.8 kg
[~2017-09-11 15:08] MED LIST changes: +ASPI-516 PO; -ASPI81CH PO; +MACR100C2 PO; +METO1TAB42 PO; -METO25TA6 PO
[2017-09-11 15:24] VITALS: BP 175/82; PULSE 77; RESP 20; TEMP 98.3; O2SAT 95
[2017-09-11] MEDS ORDERED: MORPHINE SULFATE 8 MG/ML INJ ONE (15:29)
[2017-09-11] MEDS ORDERED: ONDANSETRON HCL 4 MG/2 ML VIAL IV PUSH ONE (15:30)
[2017-09-11] MEDS ORDERED: SODIUM CHLORIDE 0.9% FLUSH 10 ML FLUSH IVF PRN (15:30)
[2017-09-11] MEDS ORDERED: MORPHINE SULFATE 4 MG/ML INJ IV PUSH ONE (15:30)
--- NOTE | 2017-09-11 15:30 | PD ---
HPI Chief Complaint: Fall Time Seen by Provider: 15:20 Travel History International Travel<30 days: No Contact w/Intl Traveler<30days: No Traveled to known affect area: No History of Present Illness HPI patient is an 86-year-old female presents emergency department for evaluation of right hip pain and right knee pain and right elbow pain after she fell backwards rocking up her driveway today. Patient does have a history of right hip replacement by Dr. Castro. She denies any chest pain loss of consciousness head pain or neck pain. States symptoms happened just prior to arrival, she states pain is 8 out of 10 in severity but declined any morphine from EMS. States pain is nonradiating not associated with numbness tingling extremity's. Adamantly denies any head injury. PFSH Past Medical History Hx Anticoagulant Therapy: Yes Anemia: Yes Arthritis: Yes Asthma: No Atrial Fibrillation: Yes Autoimmune Disease: No Blood Disorders: No Anxiety: No Depression: No Heart Rhythm Problems: Yes Cancer: Yes (RT BREAST) Cardiac Catheterization: Yes Cardiovascular Problems: Yes (3 stents) High Cholesterol: Yes Chemotherapy: No Chest Pain: Yes Congestive Heart Failure: Yes COPD: Yes Cerebrovascular Accident: Yes (TIA ) Coronary Artery Disease: Yes Diabetes: No Diminished Hearing: No Endocrine: No Gastrointestinal Disorders: Yes (ULCERS 20 YEARS AGO; C-DIFF) GERD: Yes Glaucoma: No Genitourinary: Yes (current uti) Headaches: No Hepatitis: No Hiatal Hernia: No Hypertension: Yes Immune Disorder: No Implanted Vascular Access Dvce: No Kidney Stones: No Musculoskeletal: Yes Neurologic: Yes Psychiatric: No Reproductive: No Respiratory: Yes (copd/ sleep apnea?) Immunizations Current: Yes Migraines: No Myocardial Infarction: No Radiation Therapy: Yes Renal Failure: No Seizures: No Sickle Cell Disease: No Sleep Apnea: Yes Thyroid Disease: No Ulcer: Yes Menopausal: Yes Past Surgical History Abdominal Surgery: Yes (hernia repair) AICD: No Appendectomy: No Arteriovenous Shunt: No Cardiac Surgery: Yes Cholecystectomy: Yes Coronary Stent: Yes (X3) Ear Surgery: No Endocrine Surgery: No Eye Surgery: No Genitourinary Surgery: No Gynecologic Surgery: Yes (RT BRST LUMPECTOMY) Hysterectomy: Yes Insulin Pump: No Joint Replacement: Yes (R HIP) Neurologic Surgery: No Oral Surgery: No Pacemaker: No Thoracic Surgery: No Other Surgery: Yes (RIGHT BREAST LUMPECTOMY) Social History Alcohol Use: Yes (OCC. WINE) Tobacco Use: No Substance Use: No Allergies-Medications (Allergen,Severity, Reaction): Coded Allergies: Sulfa (Sulfonamide Antibiotics) (Verified Allergy, Severe, 07/06/17) codeine (Verified Allergy, Severe, Hallucinations, 07/06/17) & HIVES penicillin G (Verified Allergy, Severe, ITCHING, 07/06/17) Reported Meds & Prescriptions Reported Meds & Active Scripts Active Reported Vitamin E-400 (Vitamin E) 400 Unit Cap 400 Units PO DAILY Calcium 600+D 200 (Calcium Carbonate-Vitamin D) 600-200 Mg-Unit Tab 1 Tab PO DAILY Vitamin D3 (Cholecalciferol) 1,000 Unit Tab 1,000 Units PO DAILY Vitamin B-12 (Cyanocobalamin) 1,000 Mcg Tab 1,000 Mcg PO DAILY Isosorbide Mononitrate ER (Isosorbide Mononitrate) 30 Mg Gerber 30 Mg PO DAILY Magnesium Oxide 400 Mg Tab 400 Mg PO DAILY Spironolactone 25 Mg Tab 25 Mg PO MOTH Take 1 tablet (25mg) daily on Wednesday and Metoprolol Succinate ER 24 HR (Metoprolol Succinate) 25 Mg Tab 25 Mg PO BID Lisinopril 2.5 Mg Tab 2.5 Mg PO HS Fenofibrate 54 Mg Tab 54 Mg PO DAILY Protonix (Pantoprazole Sodium) 20 Mg Tab 20 Mg PO DAILY Nitroglycerin SL (Nitroglycerin) 0.4 Mg Subl 0.4 Mg SL DIRECTED PRN ONE TABLET UNDER THE TONGUE NEEDED FOR CHEST PAIN, MAY REPEAT EVERY FIVE MINUTES FOR A TOTAL OF 3 DOSES OR CALL 911 IF NO RELIEF Lovastatin 40 Mg Tab 40 Mg PO DAILY Gabapentin 100 Mg Cap 100 Mg PO Q8HR Aspirin 81 Mg Chew 81 Mg PO DAILY Eliquis (Apixaban) 5 Mg Tab 5 Mg PO BID Review of Systems Except as stated in HPI: all other systems reviewed are Neg Physical Exam Narrative GENERAL: Well-developed well-nourished, no obvious distress. SKIN: Focused skin assessment warm/dry. HEAD: Atraumatic. Normocephalic. No badillo signs no raccoons eye EYES: Pupils equal and round. No scleral icterus. No injection or drainage. ENT: No nasal bleeding or discharge. Mucous membranes pink and moist. NECK: Trachea midline. No JVD. CARDIOVASCULAR: Regular rate and rhythm. No murmur appreciated. RESPIRATORY: No accessory muscle use. Clear to auscultation. Breath sounds equal bilaterally. GASTROINTESTINAL: Abdomen soft, non-tender, nondistended. Hepatic and splenic margins not palpable. MUSCULOSKELETAL: No obvious deformities. No clubbing. No cyanosis. No edema. There is shortening and external rotation at the right hip, some swelling is noted at the right knee and abrasion of the right elbow. She has some tenderness at the right greater trochanter, pulse motor and sensory intact distally in all 4 extremities, the remainder of extremity exam is nontender. No midline CT or L-spine tenderness. NEUROLOGICAL: Awake and alert. No obvious cranial nerve deficits. Motor grossly within normal limits. Normal speech. PSYCHIATRIC: Appropriate mood and affect; insight and judgment normal. Data Data Last Documented VS Vital Signs Date Time Temp Pulse Resp B/P (MAP) Pulse Ox O2 Delivery O2 Flow Rate FiO2 09/11/17 15:24 98.3 77 20 175/82 (113) 95 Orders Orders Basic Metabolic Panel (Bmp) (09/11/17 15:20) Complete Blood Count With Diff (09/11/17 15:20) Prothrombin Time / Inr (Pt) (09/11/17 15:20) Act Partial Throm Time (Ptt) (09/11/17 15:20) Chest, Single Ap (09/11/17 15:20) Ecg Monitoring (09/11/17 15:20) Iv Access Insert/Monitor (09/11/17 15:20) Oximetry (09/11/17 15:20) Oxygen Administration (09/11/17 15:20) Sodium Chloride 0.9% Flush (Ns Flush) (09/11/17 15:30) Hip, Uni(Ap&Lat) W Ap Pelvis (09/11/17 ) Elbow, Complete (4 Vws) (09/11/17 ) Morphine Inj (Morphine Inj) (09/11/17 15:30) Ondansetron Inj (Zofran Inj) (09/11/17 15:30) Morphine Inj (Morphine Inj) (09/11/17 15:29) Knee, Ltd (1 Or 2vws) (09/11/17 ) Electrocardiogram (09/11/17 ) Consult Orthopedic (09/11/17 ) Morphine Inj (Morphine Inj) (09/11/17 16:45) (Hub Use Only)Inp Phy Cons/Ref (09/11/17 ) Shoulder, Complete (>2vws) (09/11/17 ) Admit Order (Ed Use Only) (09/11/17 ) Labs Laboratory Tests Test 09/11/17 15:40 White Blood Count 5.0 TH/MM3 Red Blood Count 3.68 MIL/MM3 Hemoglobin 11.7 GM/DL Hematocrit 34.2 % Mean Corpuscular Volume 93.1 FL Mean Corpuscular Hemoglobin 31.9 PG Mean Corpuscular Hemoglobin Concent 34.2 % Red Cell Distribution Width 13.8 % Platelet Count 181 TH/MM3 Mean Platelet Volume 8.3 FL Neutrophils (%) (Auto) 48.4 % Lymphocytes (%) (Auto) 43.5 % Monocytes (%) (Auto) 6.9 % Eosinophils (%) (Auto) 0.9 % Basophils (%) (Auto) 0.3 % Neutrophils # (Auto) 2.4 TH/MM3 Lymphocytes # (Auto) 2.2 TH/MM3 Monocytes # (Auto) 0.3 TH/MM3 Eosinophils # (Auto) 0.0 TH/MM3 Basophils # (Auto) 0.0 TH/MM3 CBC Comment DIFF FINAL Differential Comment Prothrombin Time 12.0 SEC Prothromb Time International Ratio 1.2 RATIO Activated Partial Thromboplast Time 27.8 SEC Blood Urea Nitrogen 14 MG/DL Creatinine 0.97 MG/DL Random Glucose 91 MG/DL Calcium Level 9.5 MG/DL Sodium Level 139 MEQ/L Potassium Level 3.7 MEQ/L Chloride Level 105 MEQ/L Carbon Dioxide Level 27.6 MEQ/L Anion Gap 6 MEQ/L Estimat Glomerular Filtration Rate 54 ML/MIN MDM Medical Decision Making Medical Screen Exam Complete: Yes Emergency Medical Condition: Yes Differential Diagnosis Hip fracture, knee fracture, elbow fracture, fall, syncope unlikely. Narrative Course Patient roomed in emergency department, preop labs obtained chest x-ray after right hip x-ray did reveal a fracture. Last 24 hours Impressions Chest X-Ray 09/11/17 1520 Signed Impressions: Service Date/Time: Monday, September 11, 2017 15:49 - CONCLUSION: No acute cardiopulmonary disease identified. Tomer Rodgers MD Shoulder X-Ray 09/11/17 0000 Signed Impressions: Service Date/Time: Monday, September 11, 2017 17:47 - CONCLUSION: No evidence of fracture. Tomer Rodgers MD Knee X-Ray 09/11/17 0000 Signed Impressions: Service Date/Time: Monday, September 11, 2017 15:55 - CONCLUSION: Osteoarthritic findings. No evidence of fracture. Tomer Rodgers MD Hip and Pelvis X-Ray 09/11/17 0000 Signed Impressions: Service Date/Time: Monday, September 11, 2017 15:51 - CONCLUSION: Impacted right femoral neck fracture. Tomer Rodgers MD Elbow X-Ray 09/11/17 0000 Signed Impressions: Service Date/Time: Monday, September 11, 2017 15:58 - CONCLUSION: No evidence of fracture. Tomer Rodgers MD Discussed with patient the findings, initially she declined pain medicine was talked into morphine on arrival, when I revisited the room the patient in pain she was re-counseled on the call hernandez which is in the bed with her, she was ordered additional morphine and is doing much better as far as pain control. Discussed briefly with Dr. Sierra, will be admitted to medicine service. Diagnosis Primary Impression: Fracture of femoral neck, right, closed Qualified Codes: S72.001A - Fracture of unspecified part of neck of right femur, initial encounter for closed fracture Admitting Information Admitting Physician Requests: Admit Condition: Stable Camron Salinas MD Sep 11, 2017 15:30
[2017-09-11 16:11] LABS: AUTOMATED NEUTROPHIL # 2.4 TH/MM3 (1.8-7.7); BASOPHIL % 0.3 % (0.0-2.0); EOSINOPHIL % 0.9 % (0.0-4.0); HEMATOCRIT 34.2 % (35.0-46.0); HEMOGLOBIN 11.7 GM/DL (11.6-15.3); LYMPH % 43.5 % (9.0-44.0); LYMPHOCYTE # 2.2 TH/MM3 (1.0-4.8); MEAN CELL VOLUME 93.1 FL (80.0-100.0); MEAN CORPUSCULAR HEMOGLOBIN 31.9 PG (27.0-34.0); MEAN CORPUSCULAR HGB CONC 34.2 % (32.0-36.0); MEAN PLATELET VOLUME 8.3 FL (7.0-11.0); MONO % 6.9 % (0.0-8.0); MONOCYTE # 0.3 TH/MM3 (0-0.9); NEUT % 48.4 % (16.0-70.0); PLATELET COUNT 181 TH/MM3 (150-450); RED BLOOD COUNT 3.68 MIL/MM3 (4.00-5.30); RED CELL DISTRIBUTION WIDTH 13.8 % (11.6-17.2)
[2017-09-11 16:20] LABS: INTERNATIONAL NORMALIZED RATIO 1.2 RATIO
[2017-09-11 16:23] LABS: BICARBONATE 27.6 MEQ/L (21.0-32.0); CALCIUM 9.5 MG/DL (8.5-10.1); CREATININE 0.97 MG/DL (0.50-1.00)
[2017-09-11] MEDS ORDERED: MORPHINE SULFATE 2 MG/ML INJ IV PUSH ONE (16:45)
--- NOTE | 2017-09-11 16:48 | RADRPT ---
EXAM DATE/TIME: 09/11/2017 15:51 [facility] COMPARISON: No previous studies available for comparison. INDICATIONS : Patient complains of right hip pain status post fall today. MEDICAL HISTORY : None. SURGICAL HISTORY : Left hip total arthroplasty. ENCOUNTER: Initial ACUITY: 1 day PAIN SCORE: 9/10 LOCATION: Right Hip FINDINGS: 4 views of the right hip and pelvis. Right femoral neck fracture with 2.3 cm impaction. Left total hi p prosthesis in place. Hip joint alignment within normal limits. CONCLUSION: Impacted right femoral neck fracture. Tomer Rodgers MD on September 11, 2017 at 16:47 Board Certified Radiologist. This report was verified electronically.
--- NOTE | 2017-09-11 16:48 | RADRPT ---
EXAM DATE/TIME: 09/11/2017 15:49 [facility] COMPARISON: CHEST SINGLE AP, October 07, 2015, 14:51. INDICATIONS : Evaluate for pneumonia, pneumothorax, or communicable diseases. MEDICAL HISTORY : None. SURGICAL HISTORY : None. ENCOUNTER: Initial ACUITY: 1 day PAIN SCORE: 0/10 LOCATION: chest FINDINGS: Single AP view of the chest. The lungs are clear. Cardiomediastinal silhouette within normal limits. No evidence of pleural effusion or pneumothorax. Cervical spine hardware. CONCLUSION: No acute cardiopulmonary disease identified. Tomer Rodgers MD on September 11, 2017 at 16:46 Board Certified Radiologist. This report was verified electronically.
[2017-09-11] MEDS ORDERED: VITA400C70 PO (16:50)
--- NOTE | 2017-09-11 16:50 | RADRPT ---
EXAM DATE/TIME: 09/11/2017 15:55 [facility] COMPARISON: KNEE RIGHT LTD (1 OR 2 VWS), March 11, 2016, 12:37. INDICATIONS : Patient fell today and complains of right anterior knee pain. MEDICAL HISTORY : None. SURGICAL HISTORY : None. ENCOUNTER: Initial ACUITY: 1 day PAIN SCORE: 5/10 LOCATION: Right Knee FINDINGS: 3 views right knee. Moderate-sized tricompartmental osteophytes. Bone alignment within normal limits. No evidence of fracture. No evidence of joint effusion. CONCLUSION: Osteoarthritic findings. No evidence of fracture. Tomer Rodgers MD on September 11, 2017 at 16:47 Board Certified Radiologist. This report was verified electronically.
--- NOTE | 2017-09-11 16:50 | RADRPT ---
EXAM DATE/TIME: 09/11/2017 15:58 [facility] COMPARISON: No previous studies available for comparison. INDICATIONS : Patient fell today and complains of right posterior elbow pain. MEDICAL HISTORY : None. SURGICAL HISTORY : None. ENCOUNTER: Initial ACUITY: 1 day PAIN SCORE: 5/10 LOCATION: Right Elbow FINDINGS: 4 views right elbow. Bone alignment within normal limits. No evidence of fracture. No evidence of vanessa int effusion. No joint narrowing. CONCLUSION: No evidence of fracture. Tomer Rodgers MD on September 11, 2017 at 16:48 Board Certified Radiologist. This report was verified electronically.
--- NOTE | 2017-09-11 17:19 | HHI.HP ---
[facility] Primary Care Physician Og Jacinto MD Admission Diagnosis Right hip pain, Fall. Diagnoses: (1) Fracture of femoral neck, right, closed Diagnosis: Principal (2) Right hip pain Diagnosis: Principal (3) Right shoulder pain Diagnosis: Principal (4) A-fib Diagnosis: Secondary (5) HTN (hypertension) Diagnosis: Secondary Chief Complaint: Right hip, leg, and shoulder pain after fall. Travel History International Travel<30 Days: No Contact w/Intl Traveler <30 Da: No Traveled to Known Affected Are: No History of Present Illness 86-year-old female with past medical history of HTN, HLD, A. fib anticoagulated on Eliquis, CAD, CHF, COPD, and chronic kidney disease who was otherwise in her normal state of health when she fell earlier today. She complaints of right shoulder, right hip and leg pain which began shortly after falling today. Patient states that she was walking up her driveway when she fell when she lost her balance. Does remember experiencing some lightheadedness but no feelings of passing out. Denies any chest pain, shortness of breath, or heart palpitations. States that she feel back and caught herself with her right arm and then landed on the right right hip, and shoulder as well. Right after fall pain began, in the right hip, right shoulder and leg. Denies hitting her head. States after fall could not stand up, she has a medical emerge alert bracelet and utilized this to call for help. At the moment she rates her pain 8/10 on right hip, shoulder and leg. Describes pain as throbbing, right hip pain radiates to bottoms with movement. Right shoulder pain radiates down arm. Has receive Morphine for pain and states this has helped relieve pain, but not eliminated the pain completely. She also reports that the morphine has been making her sleepy. Review of Systems Constitutional: COMPLAINS OF: Fatigue, DENIES: Diaphoretic episodes, Fever, Weight gain, Weight loss, Chills, Dizziness, Change in appetite, Night Sweats Endocrine: DENIES: Abnorml menstrual pattern, Heat/cold intolerance Eyes: DENIES: Blurred vision, Diplopia, Eye inflammation Ears, nose, mouth, throat: COMPLAINS OF: Hearing loss, DENIES: Tinnitus, Vertigo, Nasal discharge, Oral lesions Respiratory: DENIES: Apneas, Cough, Snoring, Wheezing, Hemoptysis, Sputum production Cardiovascular: COMPLAINS OF: Lower Extremity Edema, DENIES: Chest pain, Palpitations, Syncope, Dyspnea on Exertion Gastrointestinal: DENIES: Abdominal pain, Black stools, Bloody stools, Constipation, Diarrhea, Anorexia Genitourinary: DENIES: Abnormal vaginal bleeding Musculoskeletal: COMPLAINS OF: Joint pain (right hip pain, right shoulder pain) Integumentary: DENIES: Abnormal pigmentation, Pruritus, Rash, Nail changes Hematologic/lymphatic: DENIES: Bruising, Lymphadenopathy Immunologic/allergic: DENIES: Urticaria Neurologic: COMPLAINS OF: Abnormal gait, DENIES: Headache, Localized weakness, Paresthesias, Seizures, Speech Problems Psychiatric: DENIES: Anxiety, Confusion, Mood changes, Depression, Hallucinations, Agitation, Suicidal Ideation Except as stated in HPI: all other systems reviewed are Neg Past Family Social History Past Medical History afib on Eliquis HTN HLD CAD with stenting X3 TIA CHF COPD Right breast CA treated with radiation in 6yrs ago CKD gastric ulcers lower abdominal hernia Past Surgical History Right breast lumpectomy Total hysterectomy Hernia repair Left lower leg fracture Left hip replacement Cervical neck fusion Tonsillectomy Gallbladder removal Bilateral cataract surgery Reported Medications Reported Meds & Active Scripts Active Reported Vitamin E-400 (Vitamin E) 400 Unit Cap 400 Units PO DAILY Calcium 600+D 200 (Calcium Carbonate-Vitamin D) 600-200 Mg-Unit Tab 1 Tab PO DAILY Vitamin D3 (Cholecalciferol) 1,000 Unit Tab 1,000 Units PO DAILY Vitamin B-12 (Cyanocobalamin) 1,000 Mcg Tab 1,000 Mcg PO DAILY Isosorbide Mononitrate ER (Isosorbide Mononitrate) 30 Mg Gerber 30 Mg PO DAILY Magnesium Oxide 400 Mg Tab 400 Mg PO DAILY Spironolactone 25 Mg Tab 25 Mg PO MOTH Take 1 tablet (25mg) daily on Wednesday and Metoprolol Succinate ER 24 HR (Metoprolol Succinate) 25 Mg Tab 25 Mg PO BID Lisinopril 2.5 Mg Tab 2.5 Mg PO HS Fenofibrate 54 Mg Tab 54 Mg PO DAILY Protonix (Pantoprazole Sodium) 20 Mg Tab 20 Mg PO DAILY Nitroglycerin SL (Nitroglycerin) 0.4 Mg Subl 0.4 Mg SL DIRECTED PRN ONE TABLET UNDER THE TONGUE NEEDED FOR CHEST PAIN, MAY REPEAT EVERY FIVE MINUTES FOR A TOTAL OF 3 DOSES OR CALL 911 IF NO RELIEF Lovastatin 40 Mg Tab 40 Mg PO DAILY Gabapentin 100 Mg Cap 100 Mg PO Q8HR Aspirin 81 Mg Chew 81 Mg PO DAILY Eliquis (Apixaban) 5 Mg Tab 5 Mg PO BID Allergies: Coded Allergies: Sulfa (Sulfonamide Antibiotics) (Verified Allergy, Severe, 07/06/17) codeine (Verified Allergy, Severe, Hallucinations, 07/06/17) & HIVES penicillin G (Verified Allergy, Severe, ITCHING, 07/06/17) Active Ordered Medications Current Medications Sodium Chloride (NS Flush) 2 ml UNSCH PRN IVF FLUSH AFTER USING IV ACCESS; Start 09/11/17 at 15:30; Stop 09/11/17 at 18:04; Status DC Morphine Sulfate (Morphine Inj) 4 mg ONCE ONCE IV PUSH Last administered on 15:30; Start 09/11/17 at 15:30; Stop 09/11/17 at 15:31; Status DC Ondansetron HCl (Zofran Inj) 4 mg ONCE ONCE IV PUSH Last administered on 09/11 15:30; Start 09/11/17 at 15:30; Stop 09/11/17 at 15:31; Status DC Morphine Sulfate (Morphine Inj) 8 mg STK-MED ONCE .ROUTE ; Start 09/11/17 at 15 :29; Stop 09/11/17 at 15:30; Status DC Morphine Sulfate (Morphine Inj) 6 mg ONCE ONCE IV PUSH Last administered on 17:26; Start 09/11/17 at 16:45; Stop 09/11/17 at 16:46; Status DC Sodium Chloride (NS Flush) 2 ml UNSCH PRN IV FLUSH FLUSH AFTER USING IV ACCESS ; Start 09/11/17 at 18:00 Sodium Chloride (NS Flush) 2 ml BID IV FLUSH ; Start 09/11/17 at 21:00 Ondansetron HCl (Zofran Inj) 4 mg Q6H PRN IVP NAUSEA OR VOMITING; Start at 18:00 Naloxone HCl (Narcan Inj) 0.4 mg UNSCH PRN IV PUSH SEE LABEL COMMENTS; Start 09/11/17 at 18:00 Senna/Docusate Sodium (Shanna-Colace) 1 tab BID PO ; Start 09/11/17 at 21:00 Magnesium Hydroxide (Milk Of Magnesia Liq) 30 ml Q12H PRN PO Mild constipation ; Start 09/11/17 at 18:00 Sennosides (Senokot) 17.2 mg Q12H PRN PO Moderate constipation; Start at 18:00 Bisacodyl (Dulcolax Supp) 10 mg DAILY PRN RECTAL SEVERE CONSITIPATION; Start 09/11/17 at 18:00 Lactulose (Lactulose Liq) 30 ml DAILY PRN PO SEVERE CONSITIPATION; Start 09/11 at 18:00 Acetaminophen (Tylenol) 650 mg Q4H PRN PO TEMP > 100.4; Start 09/11/17 at 18: 15; Status UNV Acetaminophen (Tylenol) 650 mg Q6H PRN PO PAIN SCALE 1 TO 2; Start 09/11/17 at 18:15; Status UNV Oxycodone/ Acetaminophen (Percocet 5-325 Mg) 1 tab Q6H PRN PO PAIN SCALE 3 TO 5; Start 09/11/17 at 18:15; Status UNV Oxycodone/ Acetaminophen (Percocet 10-325 Mg) 1 tab Q6H PRN PO PAIN SCALE 6 TO 10; Start 09/11/17 at 18:15; Status UNV Morphine Sulfate (Morphine Inj) 2 mg Q3H PRN IV PUSH Pain 3-5; if unable to take PO; Start 09/11/17 at 18:15; Status UNV Morphine Sulfate (Morphine Inj) 4 mg Q3H PRN IV PUSH Pain 6-10;if unable to take PO; Start 09/11/17 at 18:15; Status UNV Naloxone HCl (Narcan Inj) 0.4 mg UNSCH PRN IV PUSH SEE LABEL COMMENTS; Start 09/11/17 at 18:15; Status UNV Senna/Docusate Sodium (Shanna-Colace) 1 tab BID PO ; Start 09/11/17 at 21:00; Status UNV Magnesium Hydroxide (Milk Of Magnesia Liq) 30 ml Q12H PRN PO Mild constipation ; Start 09/11/17 at 18:15; Status UNV Sennosides (Senokot) 17.2 mg Q12H PRN PO Moderate constipation; Start at 18:15; Status UNV Bisacodyl (Dulcolax Supp) 10 mg DAILY PRN RECTAL SEVERE CONSITIPATION; Start 09/11/17 at 18:15; Status UNV Lactulose (Lactulose Liq) 30 ml DAILY PRN PO SEVERE CONSITIPATION; Start 09/11 at 18:15; Status UNV Isosorbide Mononitrate (Imdur) 30 mg DAILY PO ; Start 09/12/17 at 09:00; Status UNV Pravastatin Sodium (Pravachol) 40 mg DAILY PO ; Start 09/12/17 at 09:00; Status UNV Metoprolol Succinate (Toprol Xl) 25 mg BID PO ; Start 09/11/17 at 21:00; Status UNV Cholecalciferol (Vitamin D3) 1,000 units DAILY PO ; Start 09/12/17 at 09:00; Status UNV Cyanocobalamin (Vitamin B12) 1,000 mcg DAILY PO ; Start 09/12/17 at 09:00; Status UNV Gabapentin (Neurontin) 100 mg Q8HR PO ; Start 09/11/17 at 22:00; Status UNV Magnesium Oxide (Mag-Ox) 400 mg DAILY PO ; Start 09/12/17 at 09:00; Status UNV Pantoprazole Sodium (Protonix) 20 mg DAILY PO ; Start 09/12/17 at 09:00; Status UNV Spironolactone (Aldactone) 25 mg MoTh PO ; Start 09/13/17 at 18:30; Status UNV Non-Formulary Medication 1 tab DAILY PO ; Start 09/12/17 at 09:00; Status UNV Non-Formulary Medication 2.5 mg HS PO ; Start 09/11/17 at 21:00; Status UNV Non-Formulary Medication 400 units DAILY PO ; Start 09/12/17 at 09:00; Status UNV Family History Sister: Breast [place], [place] Mother: stomach cancer, heart issues Daughter: [place] X3 with CABG Brother: colon [place] Social History Tobacco: 1PPD X30 yrs quit when she was 40 Alcohol use: glass of wine once in a [place] Illicit drug use: denies Lives by herself Daughter lives about 10min away, only daughter in [place]. Physical Exam Vital Signs Vital Signs Date Time Temp Pulse Resp B/P (MAP) Pulse Ox O2 Delivery O2 Flow Rate FiO2 09/11/17 15:24 98.3 77 20 175/82 (113) 95 Physical Exam GENERAL: This is a well-nourished, well-developed patient, in no apparent distress. SKIN: No rashes, right shoulder abrasion, no ecchymoses. No visible hematoma on right hip. Cool and dry. HEAD: Atraumatic. Normocephalic. No temporal or scalp tenderness. EYES: Pupils equal round and reactive. Extraocular motions intact. No scleral icterus. No injection or drainage. ENT: Nose without bleeding, purulent drainage or septal hematoma. Uvula midline. Airway patent. NECK: Trachea midline. No JVD. Supple. CARDIOVASCULAR: Irregular rate and rhythm 2/6 murmurs, no gallops, or rubs. RESPIRATORY: Clear to auscultation. Breath sounds equal bilaterally. No wheezes , rales, or rhonchi. GASTROINTESTINAL: Abdomen soft, non-tender, nondistended. No palpable masses. No guarding. MUSCULOSKELETAL: Extremities without clubbing, cyanosis, or edema. No joint tenderness, effusion, or edema noted. No calf tenderness. Negative Homans sign bilaterally. NEUROLOGICAL: Awake and alert 3. Cranial nerves II through XII intact. Motor and sensory grossly within normal limits. Left upper and lower extremity strength +4, right arm with limited ROM due to pain. Right arm with capillary refill <3 seconds. Right leg with decreased range of motion, capillary refill on right foot <3 seconds. Normal speech, no facial drooping. Laboratory Laboratory Tests Test 09/11/17 15:40 White Blood Count 5.0 Red Blood Count 3.68 Hemoglobin 11.7 Hematocrit 34.2 Mean Corpuscular Volume 93.1 Mean Corpuscular Hemoglobin 31.9 Mean Corpuscular Hemoglobin Concent 34.2 Red Cell Distribution Width 13.8 Platelet Count 181 Mean Platelet Volume 8.3 Neutrophils (%) (Auto) 48.4 Lymphocytes (%) (Auto) 43.5 Monocytes (%) (Auto) 6.9 Eosinophils (%) (Auto) 0.9 Basophils (%) (Auto) 0.3 Neutrophils # (Auto) 2.4 Lymphocytes # (Auto) 2.2 Monocytes # (Auto) 0.3 Eosinophils # (Auto) 0.0 Basophils # (Auto) 0.0 CBC Comment DIFF FINAL Differential Comment Prothrombin Time 12.0 Prothromb Time International Ratio 1.2 Activated Partial Thromboplast Time 27.8 Blood Urea Nitrogen 14 Creatinine 0.97 Random Glucose 91 Calcium Level 9.5 Sodium Level 139 Potassium Level 3.7 Chloride Level 105 Carbon Dioxide Level 27.6 Anion Gap 6 Estimat Glomerular Filtration Rate 54 Result Diagram: 09/11/17 1540 09/11/17 1540 Imaging Last Impressions Chest X-Ray 09/11/17 1520 Signed Impressions: Service Date/Time: Monday, September 11, 2017 15:49 - CONCLUSION: No acute cardiopulmonary disease identified. Tomer Rodgers MD Knee X-Ray 09/11/17 0000 Signed Impressions: Service Date/Time: Monday, September 11, 2017 15:55 - CONCLUSION: Osteoarthritic findings. No evidence of fracture. Tomer Rodgers MD Hip and Pelvis X-Ray 09/11/17 0000 Signed Impressions: Service Date/Time: Monday, September 11, 2017 15:51 - CONCLUSION: Impacted right femoral neck fracture. Tomer Rodgers MD Elbow X-Ray 09/11/17 0000 Signed Impressions: Service Date/Time: Monday, September 11, 2017 15:58 - CONCLUSION: No evidence of fracture. MD Belinda Cardozai VTE Risk Assessment Caprini VTE Risk Assessment: Mod/High Risk (score >= 2) Caprini Risk Assessment Model Point Value = 1 Point Value = 2 Point Value = 3 Point Value = 5 Age 41-60 Minor surgery BMI > 25 kg/m2 Swollen legs Varicose veins or History of unexplained or recurrent spontaneous Oral contraceptives or hormone replacement Sepsis (< 1 month) Serious lung disease, including pneumonia (< 1 month) Abnormal pulmonary function Acute myocardial infarction Congestive heart failure (< 1 month) History of inflammatory bowel disease Medical patient at bed rest Age 61-74 Arthroscopic surgery Major open surgery (> 45 min) Laparoscopic surgery (> 45 min) Malignancy Confined to bed (> 72 hours) Immobilizing plaster cast Central venous access Age >= 75 History of VTE Family history of VTE Factor V Leiden Prothrombin [id number] Lupus anticoagulant Anticardiolipin antibodies Elevated serum homocysteine Heparin-induced thrombocytopenia Other congenital or acquired thrombophilia Stroke (< 1 month) Elective arthroplasty Hip, pelvis, or leg fracture Acute spinal cord injury (< 1 month) Prophylaxis Regimen Total Risk Factor Score Risk Level Prophylaxis Regimen 0-1 Low Early ambulation 2 Moderate Order ONE of the following: *Sequential Compression Device (SCD) *Heparin 5000 units SQ BID 3-4 Higher Order ONE of the following medications: *Heparin 5000 units SQ TID *Enoxaparin/Lovenox 40 mg SQ daily (WT < 150 kg, CrCl > 30 mL/min) *Enoxaparin/Lovenox 30 mg SQ daily (WT < 150 kg, CrCl > 10-29 mL/min) *Enoxaparin/Lovenox 30 mg SQ BID (WT < 150 kg, CrCl > 30 mL/min) AND/OR *Sequential Compression Device (SCD) 5 or more Highest Order ONE of the following medications: *Heparin 5000 units SQ TID (Preferred with Epidurals) *Enoxaparin/Lovenox 40 mg SQ daily (WT < 150 kg, CrCl > 30 mL/min) *Enoxaparin/Lovenox 30 mg SQ daily (WT < 150 kg, CrCl > 10-29 mL/min) *Enoxaparin/Lovenox 30 mg SQ BID (WT < 150 kg, CrCl > 30 mL/min) AND *Sequential Compression Device (SCD) Assessment and Plan Assessment and Plan 86-year-old female with past medical history of HTN, HLD, A. fib anticoagulated on Eliquis, CAD, CHF, COPD, and chronic kidney disease who was otherwise in her normal state of health when she fell earlier today. She complaints of right shoulder, right hip and leg pain which began shortly after falling today. Imaging done in ED department reveals right hip fracture, patient will be admitted and orthopedic services consultation. Fall at home with right hip fracture Right shoulder pain - X-ray of hip and pelvis reviewed showing impacted right femoral neck fracture - Right knee x-ray reviewed with osteoarthritic findings, no fracture - X-ray of right elbow reviewed with no evidence of fracture - Pending right shoulder x-ray - Chest x-ray reviewed with no acute cardiopulmonary disease - Orthopedic consult placed, patient know to - Patient has received a total of 8 mg of morphine in ED - Pain control with PERCOCET, morphine for breakthrough pain - Bedrest, incentive spirometer Hypertension, BP elevated - Will resume patient's lisinopril, spironolactone, and metoprolol - Continue trending BPs and adjust medications accordingly Atrial fibrillation, anticoagulated on Eliquis - Resume patient's beta robin, isosorbide, and COLTEN - Hold Eliquis and ASA for possible planned surgery -SCDS UNTIL AFTER SURGERY Hyperlipidemia -Resume patient's lovastatin & fenofibrate Constipation, chronic - Patient reports chronic constipation at home - Bowel regimen on board, on pain medication - Use PRN's as needed for BM's VTE - SCDS GI PROPHYLAXIS -PROTONIX The exam, history, and the medical decision-making described in the above note were completed with the assistance of the mid-level provider. I reviewed and agree with the findings presented. I attest that I had a [id number] encounter with the patient on the same day, and personally performed and documented my assessment and findings in the medical record. Code Status Full code Discussed Condition With Plan discussed with Daughter at bedside Physician Certification 2 Midnight Certification Type: Admission for Inpatient Services Order for Inpatient Services The services are ordered in accordance with Medicare regulations or non- Medicare payer requirements, as applicable. In the case of services not specified as inpatient-only, they are appropriately provided as inpatient services in accordance with the 2-midnight benchmark. Estimated LOS (days): 4 days is the estimated time the patient will need to remain in the hospital, assuming treatment plan goals are met and no additional complications. Post-Hospital Plan: SNF Problem Qualifiers (1) Fracture of femoral neck, right, closed: Qualified Codes: S72.001A - Fracture of unspecified part of neck of right femur , initial encounter for closed fracture (2) Right shoulder pain: Qualified Codes: M25.511 - Pain in right shoulder; G89.29 - Other chronic pain (3) HTN (hypertension): Qualified Codes: I10 - Essential (primary) hypertension Camryn Marques Sep 11, 2017 17:19 Gene Whitney DO Sep 11, 2017 18:32
[2017-09-11] MEDS ORDERED: LACTULOSE SYRUP 20 GM/30 ML CUP PO PRN ×2 (18:00→18:15)
[2017-09-11] MEDS ORDERED: SODIUM CHLORIDE 0.9% FLUSH 10 ML FLUSH IV FLUSH PRN (18:00)
[2017-09-11] MEDS ORDERED: BISACODYL 10 MG SUPP RECTAL PRN ×2 (18:00→18:15)
[2017-09-11] MEDS ORDERED: MAGNESIUM HYDROXIDE SUSP 30 ML CUP PO PRN ×2 (18:00→18:15)
[2017-09-11] MEDS ORDERED: SENNOSIDES 8.6 MG TAB PO PRN ×2 (18:00→18:15)
[2017-09-11] MEDS ORDERED: NALOXONE HCL 0.4 MG/ML AMP IV PUSH PRN ×2 (18:00→18:15)
[2017-09-11] MEDS ORDERED: ONDANSETRON HCL 4 MG/2 ML VIAL IVP PRN (18:00)
[2017-09-11] MEDS ORDERED: oxyCODONE/ACETAMINOPHEN 10 MG/325 MG TAB PO PRN (18:15)
[2017-09-11] MEDS ORDERED: MORPHINE SULFATE 2 MG/ML INJ IV PUSH PRN ×2 (18:15)
[2017-09-11] MEDS ORDERED: oxyCODONE/ACETAMINOPHEN 5 MG/325 MG TAB PO PRN (18:15)
[2017-09-11 18:23] VITALS: BP 160/72; PULSE 73; RESP 20; O2SAT 96
--- NOTE | 2017-09-11 18:51 | RADRPT ---
EXAM DATE/TIME: 09/11/2017 17:47 [facility] COMPARISON: SHOULDER RIGHT COMPLETE (>2VWS), May 05, 2017, 11:20. INDICATIONS : Patient states right shoulder pain after fall. MEDICAL HISTORY : None. SURGICAL HISTORY : None. ENCOUNTER: Initial ACUITY: 1 day PAIN SCORE: 5/10 LOCATION: Right Shoulder FINDINGS: 4 views right shoulder. Bone alignment within normal limits. No evidence of fracture. Glenohumeral j oint within normal limits. Mild hypertrophic change acromioclavicular joint. CONCLUSION: No evidence of fracture. Tomer Rodgers MD on September 11, 2017 at 18:49 Board Certified Radiologist. This report was verified electronically.
[2017-09-11] MEDS ORDERED: PILL SPLITTER OTHER PRN (19:30)
[2017-09-11] MEDS ORDERED: POVIDONE IODINE 5% (ANTISEPSIS KIT) 4 APPLICATIONS EACH NARE PRN (19:45)
[2017-09-11] MEDS ORDERED: CHLORHEXIDINE GLUCONATE 2 % 1 PACK (2 CLOTHS) TOPICAL PRN (19:45)
[2017-09-11] MEDS ORDERED: METOPROLOL TARTRATE 25 MG TAB PO PRN (19:45)
[2017-09-11] MEDS ORDERED: INSULIN HUMAN REGULAR 1,000 UNITS/10 ML VIAL SQ PRN (19:45)
[2017-09-11] MEDS ORDERED: LACTATED RINGER'S 1000 ML IV PRN (19:45)
[2017-09-11] MEDS ORDERED: SODIUM CHLORID 0.9% 500 ML IV PRN (19:45)
[2017-09-11 20:08] VITALS: BP 174/77; PULSE 90; RESP 18; TEMP 96.5; O2SAT 97
[2017-09-11] MEDS: GABAPENTIN 100 MG CAP PO SCH (20:18)
[2017-09-11] MEDS: LISINOPRIL 5 MG TAB PO SCH (20:18)
[2017-09-11] MEDS: METOPROLOL SUCCINATE 25 MG EXTENDED RELEASE TAB PO SCH (20:18)
[2017-09-11] MEDS: DOCUSATE SODIUM 50 MG/SENNA 8.6 MG TAB PO SCH (20:18)
[2017-09-11] MEDS: SODIUM CHLORIDE 0.9% FLUSH 10 ML FLUSH IV FLUSH SCH (20:21)
[2017-09-11] MEDS ORDERED: DOCUSATE SODIUM 50 MG/SENNA 8.6 MG TAB PO SCH (21:00)
[2017-09-12] VITALS (8 sets, daily range): BP systolic 118–165; BP diastolic 50–76; PULSE 64–86; RESP 16–18; TEMP 96.2–99; O2SAT 93–99
[2017-09-12] MEDS: GABAPENTIN 100 MG CAP PO SCH ×3 (06:00→21:10)
[2017-09-12 06:14] LABS: AUTOMATED NEUTROPHIL # 6.2 TH/MM3 (1.8-7.7); BASOPHIL % 0.1 % (0.0-2.0); EOSINOPHIL # 0.1 TH/MM3 (0-0.4); EOSINOPHIL % 1.3 % (0.0-4.0); HEMATOCRIT 31.5 % (35.0-46.0); HEMOGLOBIN 10.9 GM/DL (11.6-15.3); LYMPH % 15.3 % (9.0-44.0); LYMPHOCYTE # 1.2 TH/MM3 (1.0-4.8); MEAN CELL VOLUME 93.7 FL (80.0-100.0); MEAN CORPUSCULAR HEMOGLOBIN 32.4 PG (27.0-34.0); MEAN CORPUSCULAR HGB CONC 34.6 % (32.0-36.0); MEAN PLATELET VOLUME 8.2 FL (7.0-11.0); MONO % 6.6 % (0.0-8.0); MONOCYTE # 0.5 TH/MM3 (0-0.9); NEUT % 76.7 % (16.0-70.0); PLATELET COUNT 168 TH/MM3 (150-450); RED BLOOD COUNT 3.36 MIL/MM3 (4.00-5.30); RED CELL DISTRIBUTION WIDTH 13.4 % (11.6-17.2); WHITE BLOOD COUNT 8.1 TH/MM3 (4.0-11.0)
[2017-09-12] MEDS: PRAVASTATIN SOD 40 MG TAB PO SCH (08:05)
[2017-09-12] MEDS: DOCUSATE SODIUM 50 MG/SENNA 8.6 MG TAB PO SCH ×2 (08:05→21:10)
[2017-09-12] MEDS: MAGNESIUM OXIDE 400 MG TAB PO SCH (08:05)
[2017-09-12] MEDS: CALCIUM/VITAMIN D 250 MG/125 U TAB PO SCH (08:05)
[2017-09-12] MEDS: CHOLECALCIFEROL (VIT D3) 1000 UNIT TAB PO SCH (08:06)
[2017-09-12] MEDS: VITAMIN E 400 UNIT CAP PO SCH (08:06)
[2017-09-12] MEDS: PANTOPRAZOLE SOD 20 MG DELAYED RELEASE TAB PO SCH (08:06)
[2017-09-12] MEDS: CYANOCOBALAMIN 1,000 MCG TAB PO SCH (08:06)
--- NOTE | 2017-09-12 08:10 | MB ---
cc: COLE SULLIVAN DATE OF CONSULTATION: 09/12/2017 REASON FOR CONSULTATION: Right hip fracture. HISTORY The patient is an 86-year-old female who has a medical history of hypertension, hyperlipidemia, atrial fibrillation, anticoagulated on Eliquis, coronary artery disease, CHF, COPD, and chronic kidney disease. She fell yesterday. The patient was complaining about pain around the right shoulder, right elbow and right hip. The patient says that she was unable to ambulate due to significant pain about the hip. She says that she did not have a specific syncopal event. She denies hitting her head. She presented to [facility] and was found to have a displaced femoral neck fracture. She was admitted to the hospital. The patient was seen by the emergency room physician and also the admitting physician. She denies any numbness or tingling radiating to the right lower extremity. PAST MEDICAL HISTORY: As above. PAST SURGICAL HISTORY: Lumpectomy, hysterectomy, hernia repair. Fracture of the left lower extremity. Previous hip replacement on the left side, cervical spine fusion, tonsillectomy, cholecystectomy. Cataract surgery. REVIEW OF SYSTEMS: A 12 point review of systems is negative except for what is in the history of present illness. She does have positive history of some lightheadedness. She does have some hearing loss and fatigue. MEDICATIONS: See chart. Note that she is currently on low dose aspirin and Eliquis 5 milligrams b.i.d. Last dose was early yesterday. ALLERGIES SULFA. CODEINE. HALLUCINATIONS AND HIVES. PENICILLIN. ITCHING. PHYSICAL EXAMINATION: VITAL SIGNS: The patient's temperature is 98.3, pulse 77, respirations 20, blood pressure 175/82. GENERAL: She is awake, alert and oriented x3. She has normal affect, insight and judgment. Daughter is at the bedside. HEAD: The head is atraumatic. NECK: Neck is supple with some mild limited range of motion. Oropharynx is moist. HEART: When I measured her, it is regular rate, although previous exam shows that she had irregular rate. LUNGS: Normal inspiratory effort with no wheeze audible. EXTREMITIES: Right shoulder has some mild abrasion. No full thickness tear of the skin is noted. Passively she has fairly good range of motion of the shoulder with only minimal pain. Right elbow does not have a lot of tenderness. Right wrist had some mild tenderness around the radiocarpal joint. Right hip, I would say, is shortened and rotated. Mild swelling about the right hip is noted. No wounds were noted. She cannot move the toes on the right side. She has 2+ dorsalis pedis pulse on the right side. The left knee had no significant tenderness. No swelling about the calf was noted. ABDOMEN: Soft, non-tender, non-distended. BACK: No CVA tenderness. LABORATORY STUDIES: Showed white cell count of 5.0, hematocrit 34.2, creatinine 0.91, platelet count 91. Coagulation: INR is 1.2. X-RAYS: I reviewed the imaging and agree with the report as far as the pelvis. The patient has a right hip displaced femoral neck fracture, previous left hip replacement was in good position. There are x-rays of the right elbow which has no fractures or dislocation. I do not see significant degenerative changes. X-rays of the right knee showed osteoarthritis but no fractures or dislocations. Right shoulder showed no evidence of fracture dislocation. She does have evidence of previous cervical spine fusion noted on shoulder x-ray. IMPRESSION: 1. Right shoulder elbow and wrist contusions. 2. Right hip displaced femoral neck fracture. 3. History of multiple medical problems including history of atrial fibrillation on Eliquis. DECISION-MAKING: This is a complicated situation for the patient. For the contusions of the upper extremity, I recommend conservative management for now. Further imaging depending on clinical course. For the right hip fracture, I do recommend surgical management on an urgent basis, nonoperative management has uniformly poor results in this situation with inability to ambulate, chronic pain, DVT, pneumonia, bed sores and . We would like to move forward with surgical management. She has a right hip hemiarthroplasty which does have risks of its own including injury to nerves, blood vessels, bleeding, infection, failure of hardware, need for reoperation, continued pain, leg length discrepancy, dislocation, medical complications, heart attack, stroke, pneumonia and . The patient wants to move forward with surgical management. All questions have been answered. Cole Sullivan MD /KEV /7:23 AM /7:36 AM
[2017-09-12] MEDS ORDERED: ACETAMINOPHEN 1000 MG/100 ML 100 ML IV ONE (08:34)
[2017-09-12] MEDS: ISOSORBIDE MONONITRATE 30 MG TAB PO SCH (08:48)
[2017-09-12] MEDS: SODIUM CHLORIDE 0.9% FLUSH 10 ML FLUSH IV FLUSH SCH ×2 (08:48→21:11)
[2017-09-12] MEDS: METOPROLOL SUCCINATE 25 MG EXTENDED RELEASE TAB PO SCH ×2 (08:50→21:10)
[2017-09-12 09:08] LABS: BICARBONATE 27.5 MEQ/L (21.0-32.0); CALCIUM 8.8 MG/DL (8.5-10.1); CREATININE 1.04 MG/DL (0.50-1.00)
[2017-09-12] MEDS ORDERED: TRANEXAMIC ACID INJ 1,000 MG/10 ML AMP ONE (09:18)
[2017-09-12] MEDS ORDERED: ceFAZolin INJ 1,000 MG VIAL ONE (09:21)
[2017-09-12] MEDS ORDERED: SODIUM CHLOR 0.9% 250 ML INJ 250 ML ONE (09:21)
[2017-09-12] MEDS ORDERED: VANCOMYCIN HCL 1000 MG VIAL ONE (09:21)
[2017-09-12] MEDS ORDERED: GENTAMICIN SULFATE 80 MG/2 ML VIAL ONE (09:22)
[2017-09-12] MEDS: SODIUM CHLOR 0.9% 1000 ML INJ 1,000 ML IV SCH ×2 (10:38→20:38)
[2017-09-12] MEDS ORDERED: BISACODYL 10 MG SUPP RECTAL PRN (10:45)
[2017-09-12] MEDS ORDERED: ALUMINUM/MAGNESIUM/SIMETH 30 ML CUP PO PRN (10:45)
[2017-09-12] MEDS ORDERED: MAGNESIUM HYDROXIDE SUSP 30 ML CUP PO PRN (10:45)
[2017-09-12] MEDS ORDERED: ONDANSETRON HCL 4 MG/2 ML VIAL IVP PRN (10:45)
[2017-09-12] MEDS ORDERED: Post-op Orders (for Pharmacy) XX ONE (10:45)
[2017-09-12] MEDS ORDERED: ZOLPIDEM TARTRATE 5 MG TAB PO PRN (10:45)
[2017-09-12] MEDS ORDERED: NALOXONE HCL 0.4 MG/ML AMP IV PUSH PRN (10:45)
[2017-09-12] MEDS ORDERED: diphenhydrAMINE HCL 50 MG/ML VIAL IV PUSH PRN (10:45)
--- NOTE | 2017-09-12 10:48 | PD.OP ---
cc: Filiberto Michaels MD Operative Report Date of Surgery: Sep 12, 2017 Preoperative Diagnosis: Right hip displaced femoral neck fracture Postoperative Diagnosis: Same Procedure: Right hip treatment of femoral neck fracture with hemiarthroplasty Anesthesia: Gen. Surgeon: Filiberto Michaels E Commerce Marketing Analyst(s): JOSE Lopez The surgical procedure was assisted by my Advanced Registered Nurse Practitioner. My NYLON HOT WIRE CUTTER presence was necessary throughout this case for the manipulation and positioning of the surgical extremity. My NYLON HOT WIRE CUTTER was assisting me throughout the duration of this procedure. The skill set of an Advance Registered Nurse Practitioner was medically necessary to complete this procedure. During the surgical case, the director surgical was working at the back table and the Advance Registered Nurse Practitioner was directly assisting me. Operation and Findings: IMPLANT DESCRIPTION: 1. Corail femoral stem size 12, no collar, standard offset. 2. Bipolar femoral head/neck 28/45, +1.5. ESTIMATED BLOOD LOSS: 200 cc. JUSTIFICATION FOR PROCEDURE: This patient has a displaced femoral neck fracture. The patient understands the risks of surgery include but are not limited to injury to nerves, blood vessels, bleeding, infection, leg length discrepancy, continued pain, inability to ambulate, DVT, pulmonary embolus, pneumonia, stroke, heart attack, and . PROCEDURE: The patient was brought back to the operative theatre. Adequate anesthesia was obtained. The patient received intravenous and vancomycin and Ancef. Note that the patient did not have a reaction to the Ancef. She does have a prior history of reaction to penicillin. The patient was carefully placed on the operative table in the lateral decubitus position with an axillary roll and a well-padded down leg. The lower extremity was prepped and draped in the usual sterile fashion. We proceeded with a standard curvilinear incision centered around the tip of the greater trochanter. We then dissected through the deep fascia and placed a Charnley retractor protecting the sciatic nerve. The greater trochanteric bursa was reflected. We then incised through the piriformis attachment and tagged this with a #2 FiberWire. We then incised through the capsule in a T- shaped fashion and tagged this with a #2 FiberWire as well. We identified a displaced femoral neck fracture. An osteotomy was performed through the residual femoral neck. This bone was then removed followed by removal of the femoral head. The acetabulum was inspected and adequate cartilage stock was identified. We then trialed the femoral head in the acetabulum. The proximal femur was prepared with a rongeur, then a box osteotome, then a canal finder followed by a lateralizing reamer. We sequentially broached the proximal femur. We calcar planed the proximal femur and irrigated removing any remnants of the bone. We trialed the hip with the broach in place. The final femoral stem was impacted into position. Leg lengths were evaluated. We evaluated stability of the hip with the hip in the "position of sleep" and the hip flexed up to 90 and internally rotated. We additionally tested both a "shuck" test and hip extension, confirming there was no undue tension while flexing the knee to 90 during full hip extension. The final bipolar head was impacted and the hip was reduced. Once again we irrigated. We then repaired the capsule and the piriformis with the FiberWire suture. The deep fascia was closed with a #2 Stratafix, followed by 2-0 Vicryl in the skin and mak. The post-op plan is to weight-bear as tolerated. We will follow posterior total hip precautions, including the use of a canvas knee splint. DVT prophylaxis will be performed with SCDs, PABLITO baldemare, early mobilization, and resumption of Eliquis. We have written for the patient to start Eliquis 2.5 mg by mouth twice a day while in the hospital. She can resume her outpatient dose of 5 mg by mouth twice a day after discharge. Filiberto Michaels MD Sep 12, 2017 10:48
[2017-09-12] MEDS ORDERED: DO NOT ADM ANY ANTICOAGULANT DRUGS PRN (11:05)
--- NOTE | 2017-09-12 11:12 | HHI.PR ---
Subjective Remarks seen post op awake and alert, very interactive and funny denies any pain currently moves all extremities Objective Vitals Vital Signs Date Time Temp Pulse Resp B/P (MAP) Pulse Ox O2 Delivery O2 Flow Rate FiO2 09/12/17 08:00 98.7 72 18 152/71 (98) 97 09/12/17 04:00 97.6 86 16 153/71 (98) 98 09/12/17 00:00 97.7 81 17 165/76 (105) 99 09/11/17 20:08 96.5 90 18 174/77 (109) 97 09/11/17 19:58 18 09/11/17 19:58 18 09/11/17 19:04 09/11/17 18:23 73 20 160/72 (101) 96 Nasal Cannula 2.00 09/11/17 15:24 98.3 77 20 175/82 (113) 95 I/O 09/11/17 09/11/17 09/11/17 09/12/17 09/12/17 09/12/17 07:00 15:00 23:00 07:00 15:00 23:00 Intake Total 360 ml 0 ml Balance 360 ml 0 ml Intake Oral 360 ml 0 ml # Voids 2 Result Diagram: 09/12/17 0550 09/12/17 0813 Imaging Last Impressions Hip and Pelvis X-Ray 09/12/17 1038 Signed Impressions: Service Date/Time: Tuesday, September 12, 2017 11:12 - CONCLUSION: Anatomic alignment bilaterally with new hip on the right. Gene Starkey MD Chest X-Ray 09/11/17 1520 Signed Impressions: Service Date/Time: Monday, September 11, 2017 15:49 - CONCLUSION: No acute cardiopulmonary disease identified. Tomer Rodgers MD Shoulder X-Ray 09/11/17 0000 Signed Impressions: Service Date/Time: Monday, September 11, 2017 17:47 - CONCLUSION: No evidence of fracture. Tomer Rodgers MD Knee X-Ray 09/11/17 0000 Signed Impressions: Service Date/Time: Monday, September 11, 2017 15:55 - CONCLUSION: Osteoarthritic findings. No evidence of fracture. Tomer Rodgers MD Elbow X-Ray 09/11/17 0000 Signed Impressions: Service Date/Time: Saturday, September 11, 2017 15:58 - CONCLUSION: No evidence of fracture. Tomer Rodgers MD Objective Remarks awake and alert, oriented x 3, light ecchymoses right infraorbital area anicteric right shoulder- mild swelling, limited range of motion and with pain lungs no rales irregularly irregular rhythm, soft 2/6 systolic murmur left sternal border abdomen soft, nontender hip- post op dressing in place moves both feet and toes spontaenously, grossly no sensory deficits Procedures 09/12 Right hip treatment of femoral neck fracture with hemiarthroplasty Urinary Catheter: Yes Assessment to: Continue Kellogg insert reason: Surgical/Invasive Proced Date of Insertion: Sep 12, 2017 A/P Problem List: (1) Fracture of femoral neck, right, closed ICD Code: S72.001A - Fracture of unspecified part of neck of right femur, initial encounter for closed fracture (2) Right hip pain ICD Code: M25.551 - Pain in right hip (3) Right shoulder pain ICD Code: M25.511 - Pain in right shoulder (4) A-fib ICD Code: I48.91 - Unspecified atrial fibrillation (5) HTN (hypertension) ICD Code: I10 - Essential (primary) hypertension Assessment and Plan 86-year-old female with past medical history of HTN, HLD, A. fib anticoagulated on Eliquis, CAD, CHF, COPD, and chronic kidney disease who was otherwise in her normal state of health when she fell earlier today. She complaints of right shoulder, right hip and leg pain which began shortly after falling today. Imaging done in ED department reveals right hip fracture, patient will be admitted and orthopedic services consultation. baseline patient states ambulates with a cane S/P fall 09/11 S/P right ORIF for right hip fracture 09/12 orthopedics ff Acute urinary retention when kellogg was placed- obtained 1200 cc urine- urine cloudy on questioning- patient with frequency get UA , c and s if indicated- start anbiotics if indicated keep kellogg- voiding trial next few days chronic Right shoulder pain- actively bothering her - possible tear or meniscal pathology- on on discussion with patient this is chronic- xrays done no fracture on exam- mild swelling with exam seem like some effusion and ecchymoses- fading- definitely with limited range in motion - Bedrest, incentive spirometer d./w daughter that we will monitor and get probably CT later - ask PT to eval this too Hypertension, - Will resume patient's lisinopril, spironolactone, and metoprolol - Continue trending BPs and adjust medications accordingly Atrial fibrillation, rate controlled anticoagulated on Eliquis- will be restarted post op - Resume patient's beta robin, isosorbide, and COLTEN Hyperlipidemia -Resume patient's lovastatin & fenofibrate Constipation, chronic- montior - Patient reports chronic constipation at home - Bowel regimen on board, on pain medication - Use PRN's as needed for BM's VTE - Eliquis 2.5 mg po bid GI PROPHYLAXIS -PROTONIX CM - DC planning- SNF vs home PT Problem Qualifiers (1) Fracture of femoral neck, right, closed: Qualified Codes: S72.001A - Fracture of unspecified part of neck of right femur , initial encounter for closed fracture (2) Right shoulder pain: Qualified Codes: M25.511 - Pain in right shoulder; G89.29 - Other chronic pain (3) HTN (hypertension): Qualified Codes: I10 - Essential (primary) hypertension Al Miles MD Sep 12, 2017 11:12
--- NOTE | 2017-09-12 11:39 | RADRPT ---
EXAM DATE/TIME: 09/12/2017 11:12 [facility] COMPARISON: HIP RIGHT (AP&LAT 2/3VWS) W AP PELVIS, September 11, 2017, 15:51. INDICATIONS : Post operative, hip replacement. MEDICAL HISTORY : None. SURGICAL HISTORY : Hip replacement, left. ENCOUNTER: Initial ACUITY: 1 day PAIN SCORE: Non-responsive. LOCATION: Right hip. 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 Prosthesis is we ll-seated. Alignment is anatomic. A fracture is not appreciated. Arthroplasty is in place on the le ft from previous replacement. CONCLUSION: Anatomic alignment bilaterally with new hip on the right. Gene Starkey MD FACR Gene Starkey MD FACR on September 12, 2017 at 11:36 Board Certified Radiologist. This report was verified electronically.
[2017-09-12] MEDS ORDERED: ePHEDrine/NS 25 MG/5 ML SYRINGE IV ONE (12:00)
[2017-09-12] MEDS ORDERED: PROPOFOL 200 MG/20 ML AMP IV ONE (12:00)
[2017-09-12] MEDS ORDERED: LIDOCAINE HCL 1% PF 5 ML SYRINGE OTHER ONE (12:00)
[2017-09-12] MEDS ORDERED: DEXAMETHASONE SOD PHOS 4 MG/ML VIAL IV ONE (12:00)
[2017-09-12] MEDS ORDERED: ONDANSETRON HCL 4 MG/2 ML VIAL IV PUSH ONE (12:00)
--- NOTE | 2017-09-12 12:12 | PD.ORT.PN ---
Objective Vitals Vital Signs Date Time Temp Pulse Resp B/P (MAP) Pulse Ox O2 Delivery O2 Flow Rate FiO2 09/12/17 08:00 98.7 72 18 152/71 (98) 97 09/12/17 04:00 97.6 86 16 153/71 (98) 98 09/12/17 00:00 97.7 81 17 165/76 (105) 99 09/11/17 20:08 96.5 90 18 174/77 (109) 97 09/11/17 19:58 18 09/11/17 19:58 18 09/11/17 19:04 09/11/17 18:23 73 20 160/72 (101) 96 Nasal Cannula 2.00 09/11/17 15:24 98.3 77 20 175/82 (113) 95 I/O 09/11/17 09/11/17 09/11/17 09/12/17 09/12/17 09/12/17 07:00 15:00 23:00 07:00 15:00 23:00 Intake Total 360 ml 0 ml 1000 ml Output Total 1100 ml Balance 360 ml 0 ml -100 ml Intake Oral 360 ml 0 ml TPN/PPN 1000 ml Output Urine Total 900 ml Estimated Blood Loss 200 ml # Voids 2 Result Diagram: 09/12/17 0550 09/12/17 0813 Other Results Laboratory Tests Test 09/11/17 15:40 Prothromb Time International Ratio 1.2 RATIO Prothrombin Time 12.0 SEC (9.8-11.6) Imaging Last 24 hours Impressions Hip and Pelvis X-Ray 09/12/17 1038 Signed Impressions: Service Date/Time: Tuesday, September 12, 2017 11:12 - CONCLUSION: Anatomic alignment bilaterally with new hip on the right. Gene Starkey MD Chest X-Ray 09/11/17 1520 Signed Impressions: Service Date/Time: Monday, September 11, 2017 15:49 - CONCLUSION: No acute cardiopulmonary disease identified. Tomer Rodgers MD Assessment & Plan Assessment and Plan POD #0: Right hip Hemiarthroplasty 1. WBAT RLE 2. Eliquis 2.5 mg BID while in the hospital and then discharge on 5 mg BID ( normal dosing) 3. Ice to the right hip PRN 4. Posterior hip precautions 5. No touch dressing. First dressing change in the office 6. Anticipatory discharge to SNF 7. F/U in the office in 1-[address] Michaels or JOSE Carlson Daniel Scott ARNP Sep 12, 2017 12:12
[2017-09-12] MEDS ORDERED: COMMODE 3-IN-11 MIS (12:16)
[2017-09-12] MEDS ORDERED: WALKER WHEELS/F1 MIS (12:16)
[2017-09-12] MEDS ORDERED: TRANEXAMIC ACID INJ 768 MG in SODIUM CHLORIDE 0.9% INJ 100 ML IV SCH (13:00)
[2017-09-12 14:02] LABS: BILIRUBIN, URINE NEG (NEG); BLOOD, URINE SMALL (NEG); GLUCOSE,URINE NEG (NEG); KETONE, URINE NEG (NEG); NITRITE,URINE NEG (NEG); PH, URINE 6.5 (5.0-8.5); URINE COLOR YELLOW (YELLW/STRAW); URINE LEUKOCYTE ESTERASE LARGE (NEG)
[2017-09-12] MEDS: LISINOPRIL 5 MG TAB PO SCH (21:10)
--- NOTE | 2017-09-12 21:56 | EKG ---
Date Performed: 09/11/2017 Time Performed: 18:50:44 PTAGE: 86 years EKG: ATRIAL FIBRILLATION MARKED LEFT AXIS DEVIATION INCOMPLETE RIGHT BUNDLE BRANCH BLOCK SEPTAL MYOCARDIAL INFARCTION ABNORMAL ECG PREVIOUS TRACING : 07/09/2017 13.24 DOCTOR: Alejandra Gan Interpretating Date/Time 09/12/2017 21:55:32
[2017-09-13] VITALS (7 sets, daily range): BP systolic 122–164; BP diastolic 62–83; PULSE 69–96; RESP 17–19; TEMP 97.3–99.6; O2SAT 93–99
[2017-09-13] MEDS: GABAPENTIN 100 MG CAP PO SCH ×3 (03:58→20:32)
[2017-09-13] MEDS: ACETAMINOPHEN 325 MG TAB PO PRN ×2 (03:59→14:42)
[2017-09-13] MEDS: SODIUM CHLOR 0.9% 1000 ML INJ 1,000 ML IV SCH ×2 (06:38→16:38)
[2017-09-13 06:45] LABS: HEMOGLOBIN 9.7 GM/DL (11.6-15.3); MEAN CELL VOLUME 93.9 FL (80.0-100.0); MEAN CORPUSCULAR HEMOGLOBIN 32.4 PG (27.0-34.0); MEAN CORPUSCULAR HGB CONC 34.5 % (32.0-36.0); MEAN PLATELET VOLUME 8.5 FL (7.0-11.0); PLATELET COUNT 156 TH/MM3 (150-450); RED BLOOD COUNT 2.98 MIL/MM3 (4.00-5.30); RED CELL DISTRIBUTION WIDTH 13.5 % (11.6-17.2); WHITE BLOOD COUNT 11.2 TH/MM3 (4.0-11.0)
[2017-09-13] MEDS: SODIUM CHLORIDE 0.9% FLUSH 10 ML FLUSH IV FLUSH SCH ×2 (08:51→22:03)
[2017-09-13] MEDS: METOPROLOL SUCCINATE 25 MG EXTENDED RELEASE TAB PO SCH ×2 (08:53→20:32)
[2017-09-13] MEDS: CALCIUM/VITAMIN D 250 MG/125 U TAB PO SCH (08:53)
[2017-09-13] MEDS: DOCUSATE SODIUM 50 MG/SENNA 8.6 MG TAB PO SCH ×2 (08:53→20:32)
[2017-09-13] MEDS: PANTOPRAZOLE SOD 20 MG DELAYED RELEASE TAB PO SCH (08:54)
[2017-09-13] MEDS: ISOSORBIDE MONONITRATE 30 MG TAB PO SCH (08:54)
[2017-09-13] MEDS: PRAVASTATIN SOD 40 MG TAB PO SCH (08:54)
[2017-09-13] MEDS: CHOLECALCIFEROL (VIT D3) 1000 UNIT TAB PO SCH (08:54)
[2017-09-13] MEDS: CYANOCOBALAMIN 1,000 MCG TAB PO SCH (08:54)
[2017-09-13] MEDS: MAGNESIUM OXIDE 400 MG TAB PO SCH (08:54)
[2017-09-13] MEDS: VITAMIN E 400 UNIT CAP PO SCH (08:57)
[2017-09-13] MEDS: APIXABAN 2.5 MG TABLET PO SCH ×2 (08:58→20:32)
--- NOTE | 2017-09-13 11:09 | HHI.PR ---
Subjective Remarks patient very interactive no complains of post op pain Objective Vitals Vital Signs Date Time Temp Pulse Resp B/P (MAP) Pulse Ox O2 Delivery O2 Flow Rate FiO2 09/13/17 08:00 97.3 69 19 151/62 (91) 98 09/13/17 04:30 99.0 74 17 150/77 (101) 99 09/13/17 00:35 98.1 83 18 143/83 (103) 96 09/12/17 20:44 97 Nasal Cannula 1.00 09/12/17 20:25 99.0 64 17 136/65 (88) 97 09/12/17 19:52 Nasal Cannula 2.00 09/12/17 16:00 96.2 72 17 118/50 (72) 93 09/12/17 12:52 97 Nasal Cannula 2.00 09/12/17 12:30 96.9 82 18 143/58 (86) 96 09/12/17 11:35 98.2 82 16 98 Nasal Cannula 2 09/12/17 11:30 82 15 155/65 (95) 96 Nasal Cannula 2 09/12/17 11:15 85 16 137/65 (89) 98 Nasal Cannula 2 I/O 09/12/17 09/12/17 09/12/17 09/13/17 09/13/17 09/13/17 07:00 15:00 23:00 07:00 15:00 23:00 Intake Total 0 ml 1587.68 ml 340 ml 220 ml Output Total 1100 ml 800 ml 450 ml Balance 0 ml 487.68 ml -460 ml -230 ml Intake Oral 0 ml 480 ml 240 ml 120 ml IV Total 107.68 ml 100 ml 100 ml TPN/PPN 1000 ml Output Urine Total 900 ml 800 ml 450 ml Estimated Blood Loss 200 ml # Voids 2 3 # Bowel Movements 0 0 0 Result Diagram: 09/13/17 0520 09/12/17 0813 Imaging Last Impressions Hip and Pelvis X-Ray 09/12/17 1038 Signed Impressions: Service Date/Time: Tuesday, September 12, 2017 11:12 - CONCLUSION: Anatomic alignment bilaterally with new hip on the right. Gene Starkey MD Chest X-Ray 09/11/17 1520 Signed Impressions: Service Date/Time: Monday, September 11, 2017 15:49 - CONCLUSION: No acute cardiopulmonary disease identified. Tomer Rodgers MD Shoulder X-Ray 09/11/17 0000 Signed Impressions: Service Date/Time: Monday, September 11, 2017 17:47 - CONCLUSION: No evidence of fracture. Tomer Rodgers MD Knee X-Ray 09/11/17 0000 Signed Impressions: Service Date/Time: Monday, September 11, 2017 15:55 - CONCLUSION: Osteoarthritic findings. No evidence of fracture. Tomer Rodgers MD Elbow X-Ray 09/11/17 0000 Signed Impressions: Service Date/Time: Monday, September 11, 2017 15:58 - CONCLUSION: No evidence of fracture. Tomre Rodgers MD Objective Remarks awake and alert, oriented x 3, light ecchymoses right infraorbital area- almost resolved anicteric lungs no rales irregularly irregular rhythm, soft 2/6 systolic murmur left sternal border abdomen soft, nontender hip- post op dressing in place right shoulder - with painw with raising arms and mild swelling and decrease in range of motion , fading ecchymosses moves both feet and toes spontaenously, grossly no sensory deficits Procedures 09/12 Right hip treatment of femoral neck fracture with hemiarthroplasty Urinary Catheter: Yes Assessment to: Continue Kellogg insert reason: Surgical/Invasive Proced Date of Insertion: Sep 12, 2017 A/P Problem List: (1) Fracture of femoral neck, right, closed ICD Code: S72.001A - Fracture of unspecified part of neck of right femur, initial encounter for closed fracture (2) Right hip pain ICD Code: M25.551 - Pain in right hip (3) Right shoulder pain ICD Code: M25.511 - Pain in right shoulder (4) A-fib ICD Code: I48.91 - Unspecified atrial fibrillation (5) HTN (hypertension) ICD Code: I10 - Essential (primary) hypertension Assessment and Plan 86-year-old female with past medical history of HTN, HLD, A. fib anticoagulated on Eliquis, CAD, CHF, COPD, and chronic kidney disease who was otherwise in her normal state of health when she fell earlier today. She complaints of right shoulder, right hip and leg pain which began shortly after falling today. Imaging done in ED department reveals right hip fracture, patient will be admitted and orthopedic services consultation. baseline patient states ambulates with a cane S/P fall 09/11 S/P right ORIF for right hip fracture 09/12 orthopedics ff Acute urinary retention Urinary Tract infection- +leukocytosis, cloudy urine when kellogg was placed- obtained 1200 cc urine- urine cloudy start Levaquin 500 mg po daily today and ff final c and S keep kellogg- voiding trial next few days when more mobile Right shoulder pain- actively bothering her - possible tear or meniscal pathology- on discussion with patient this is chronic- xrays done no fracture on exam- mild swelling with exam seem like some effusion and ecchymoses- fading- definitely with limited range in motion incentive spirometer d./w daughter that we will monitor get a CT of the shoulder - ask PT to eval this too Hypertension, - Will resume patient's lisinopril, spironolactone, and metoprolol - Continue trending BPs and adjust medications accordingly Atrial fibrillation, rate controlled restarted on on Eliquis- will be restarted post op - Resume patient's beta robin, isosorbide, and COLTEN Hyperlipidemia -Resume patient's lovastatin & fenofibrate Constipation, chronic- montior - Patient reports chronic constipation at home - Bowel regimen on board, on pain medication - Use PRN's as needed for BM's VTE - Eliquis 2.5 mg po bid GI PROPHYLAXIS -PROTONIX CM - DC planning- SNF Problem Qualifiers (1) Fracture of femoral neck, right, closed: Qualified Codes: S72.001A - Fracture of unspecified part of neck of right femur , initial encounter for closed fracture (2) Right shoulder pain: Qualified Codes: M25.511 - Pain in right shoulder; G89.29 - Other chronic pain (3) HTN (hypertension): Qualified Codes: I10 - Essential (primary) hypertension Al Miles MD Sep 13, 2017 11:09
[2017-09-13] MEDS: LEVOFLOXACIN 500 MG TAB PO SCH (11:11)
--- NOTE | 2017-09-13 15:19 | PD.ORT.PN ---
Subjective Subjective Remarks no CP/SOB no new issues. Objective Vitals Vital Signs Date Time Temp Pulse Resp B/P (MAP) Pulse Ox O2 Delivery O2 Flow Rate FiO2 09/13/17 12:00 97.6 84 18 148/68 (94) 97 09/13/17 08:00 97.3 69 19 151/62 (91) 98 09/13/17 04:30 99.0 74 17 150/77 (101) 99 09/13/17 00:35 98.1 83 18 143/83 (103) 96 09/12/17 20:44 97 Nasal Cannula 1.00 09/12/17 20:25 99.0 64 17 136/65 (88) 97 09/12/17 19:52 Nasal Cannula 2.00 09/12/17 16:00 96.2 72 17 118/50 (72) 93 I/O 09/12/17 09/12/17 09/12/17 09/13/17 09/13/17 09/13/17 07:00 15:00 23:00 07:00 15:00 23:00 Intake Total 0 ml 1587.68 ml 340 ml 220 ml Output Total 1100 ml 800 ml 450 ml Balance 0 ml 487.68 ml -460 ml -230 ml Intake Oral 0 ml 480 ml 240 ml 120 ml IV Total 107.68 ml 100 ml 100 ml TPN/PPN 1000 ml Output Urine Total 900 ml 800 ml 450 ml Estimated Blood Loss 200 ml # Voids 2 3 # Bowel Movements 0 0 0 Result Diagram: 09/13/17 0520 09/12/17 0813 Imaging Last 24 hours Impressions Hip and Pelvis X-Ray 09/12/17 1038 Signed Impressions: Service Date/Time: Tuesday, September 12, 2017 11:12 - CONCLUSION: Anatomic alignment bilaterally with new hip on the right. Gene Starkey MD Chest X-Ray 09/11/17 1520 Signed Impressions: Service Date/Time: Monday, September 11, 2017 15:49 - CONCLUSION: No acute cardiopulmonary disease identified. Tomer Rodgers MD Objective Remarks sleepy, No acute distress. Pulmonary: Normal respiratory effort. Right lower extremity: Neurovascularly intact, CSK, +EHL/FHL, dressing clean, dry and intact. + PT/DP pulses. Supple compartments. Negative Homans sign. Assessment & Plan Assessment and Plan POD #1: Right hip Hemiarthroplasty no CP/SOB no new issues. 1. WBAT RLE 2. Eliquis 2.5 mg BID while in the hospital and then discharge on 5 mg BID ( normal dosing) 3. Ice to the right hip PRN 4. Posterior hip precautions 5. No touch dressing. First dressing change in the office 6. Anticipatory discharge to SNF 7. F/U in the office in 1-[address] Micheals or JOSE Carlson Antony Jr. MD Sep 13, 2017 15:19
[2017-09-13] MEDS ORDERED: SPIRONOLACTONE 25 MG TAB PO SCH (18:30)
[2017-09-13] MEDS: LISINOPRIL 5 MG TAB PO SCH (20:32)
[2017-09-13] MEDS: MULTIVITAMINS/MINERALS THERAPEUTIC TAB PO SCH (20:32)
[2017-09-13] MEDS: DOCUSATE SODIUM 100 MG CAP PO SCH (20:32)
[2017-09-14] MEDS: SODIUM CHLOR 0.9% 1000 ML INJ 1,000 ML IV SCH ×3 (02:38→22:38)
[2017-09-14 03:07] VITALS: BP 144/69; PULSE 91; RESP 18; TEMP 99.9; O2SAT 96
[2017-09-14 06:18] LABS: HEMATOCRIT 27.7 % (35.0-46.0); HEMOGLOBIN 9.6 GM/DL (11.6-15.3); MEAN CELL VOLUME 92.4 FL (80.0-100.0); MEAN CORPUSCULAR HGB CONC 34.7 % (32.0-36.0); MEAN PLATELET VOLUME 8.5 FL (7.0-11.0); PLATELET COUNT 165 TH/MM3 (150-450); RED CELL DISTRIBUTION WIDTH 13.2 % (11.6-17.2); WHITE BLOOD COUNT 10.1 TH/MM3 (4.0-11.0)
[2017-09-14] MEDS: GABAPENTIN 100 MG CAP PO SCH ×3 (06:32→20:41)
[2017-09-14 08:00] VITALS: BP 160/66; PULSE 81; RESP 16; TEMP 99.2; O2SAT 99
[2017-09-14] MEDS: DOCUSATE SODIUM 100 MG CAP PO SCH ×2 (10:03→20:40)
[2017-09-14] MEDS: DOCUSATE SODIUM 50 MG/SENNA 8.6 MG TAB PO SCH ×2 (10:04→20:41)
[2017-09-14] MEDS: PRAVASTATIN SOD 40 MG TAB PO SCH (10:04)
[2017-09-14] MEDS: MULTIVITAMINS/MINERALS THERAPEUTIC TAB PO SCH ×2 (10:04→20:41)
[2017-09-14] MEDS: ISOSORBIDE MONONITRATE 30 MG TAB PO SCH (10:04)
[2017-09-14] MEDS: LEVOFLOXACIN 500 MG TAB PO SCH (10:04)
[2017-09-14] MEDS: MAGNESIUM OXIDE 400 MG TAB PO SCH (10:04)
[2017-09-14] MEDS: CALCIUM/VITAMIN D 250 MG/125 U TAB PO SCH (10:05)
[2017-09-14] MEDS: CHOLECALCIFEROL (VIT D3) 1000 UNIT TAB PO SCH (10:05)
[2017-09-14] MEDS: METOPROLOL SUCCINATE 25 MG EXTENDED RELEASE TAB PO SCH ×2 (10:05→20:40)
[2017-09-14] MEDS: APIXABAN 2.5 MG TABLET PO SCH ×2 (10:05→20:42)
[2017-09-14] MEDS: CYANOCOBALAMIN 1,000 MCG TAB PO SCH (10:05)
[2017-09-14] MEDS: SODIUM CHLORIDE 0.9% FLUSH 10 ML FLUSH IV FLUSH SCH ×2 (10:06→20:42)
[2017-09-14] MEDS: VITAMIN E 400 UNIT CAP PO SCH (10:06)
[2017-09-14] MEDS: ACETAMINOPHEN 325 MG TAB PO PRN ×2 (10:12→20:41)
[2017-09-14] MEDS: PANTOPRAZOLE SOD 20 MG DELAYED RELEASE TAB PO SCH (10:12)
[2017-09-14 12:00] VITALS: BP 133/69; PULSE 82; RESP 16; TEMP 98.3; O2SAT 99
[2017-09-14] MEDS ORDERED: LEVA500T33 PO (12:56)
--- NOTE | 2017-09-14 12:59 | HHI.PR ---
Subjective Remarks Patient seen and evaluated in follow-up for right femoral fracture status post repair, now complaining of some right shoulder pain after a fall several months ago. Otherwise doing well Objective Vitals Vital Signs Date Time Temp Pulse Resp B/P (MAP) Pulse Ox O2 Delivery O2 Flow Rate FiO2 09/14/17 12:00 98.3 82 16 133/69 (90) 99 09/14/17 08:00 99.2 81 16 160/66 (97) 99 09/14/17 03:07 99.9 91 18 144/69 (94) 96 09/13/17 23:40 99.6 80 17 138/67 (90) 93 09/13/17 20:35 Nasal Cannula 2.00 09/13/17 19:21 98.1 82 18 122/70 (87) 96 09/13/17 16:00 98.6 96 18 164/80 (108) 97 09/13/17 15:48 16 I/O 09/13/17 09/13/17 09/13/17 09/14/17 09/14/17 09/14/17 07:00 15:00 23:00 07:00 15:00 23:00 Intake Total 220 ml 480 ml 240 ml Output Total 450 ml 1600 ml Balance -230 ml -1600 ml 480 ml 240 ml Intake Oral 120 ml 480 ml 240 ml IV Total 100 ml Output Urine Total 450 ml 1600 ml # Voids 1 4 # Bowel Movements 0 0 0 Result Diagram: 09/14/17 0600 09/12/17 0813 Objective Remarks GENERAL: This is a well-nourished, well-developed patient, in no apparent distress. CARDIOVASCULAR: Regular rate and rhythm without murmurs, gallops, or rubs. RESPIRATORY: Clear to auscultation. Breath sounds equal bilaterally. No wheezes , rales, or rhonchi. GASTROINTESTINAL: Abdomen soft, non-tender, nondistended. Normal active bowel sounds MUSCULOSKELETAL: Right shoulder pain and decreased range of motion, other Extremities without clubbing, cyanosis, or edema. NEURO: Alert & Oriented x4 to person, place, time, situation. Moves all ext x4 Procedures 09/12 Right hip treatment of femoral neck fracture with hemiarthroplasty Date of Insertion: Sep 12, 2017 A/P Problem List: (1) Right hip pain ICD Code: M25.551 - Pain in right hip Plan: POD 2 s/p Right hip Hemiarthroplasty Doing well, weightbearing as tolerated, Eliquis DVT prophylaxis (2) Right shoulder pain ICD Code: M25.511 - Pain in right shoulder Plan: MRI of shoulder pending (3) A-fib ICD Code: I48.91 - Unspecified atrial fibrillation Plan: Continue Eliquis, rate controlled (4) HTN (hypertension) ICD Code: I10 - Essential (primary) hypertension Plan: Blood pressure controlled Discharge Planning Discharge in a.m. to rehabilitation Problem Qualifiers (1) Right shoulder pain: Qualified Codes: M25.511 - Pain in right shoulder; G89.29 - Other chronic pain (2) HTN (hypertension): Qualified Codes: I10 - Essential (primary) hypertension Tiny Mckeon MD Sep 14, 2017 12:59
--- NOTE | 2017-09-14 15:19 | PD.ORT.PN ---
Subjective Post Op Day #: 2 Subjective Remarks Patient resting comfortably in bed in NAD. Patient states she had some confusion last night and states she was actively moving making her sore today. Patient states she was ambulatory earlier today. Objective Vitals Vital Signs Date Time Temp Pulse Resp B/P (MAP) Pulse Ox O2 Delivery O2 Flow Rate FiO2 09/14/17 12:00 98.3 82 16 133/69 (90) 99 09/14/17 08:00 99.2 81 16 160/66 (97) 99 09/14/17 03:07 99.9 91 18 144/69 (94) 96 09/13/17 23:40 99.6 80 17 138/67 (90) 93 09/13/17 20:35 Nasal Cannula 2.00 09/13/17 19:21 98.1 82 18 122/70 (87) 96 09/13/17 16:00 98.6 96 18 164/80 (108) 97 09/13/17 15:48 16 I/O 09/13/17 09/13/17 09/13/17 09/14/17 09/14/17 09/14/17 07:00 15:00 23:00 07:00 15:00 23:00 Intake Total 220 ml 480 ml 240 ml Output Total 450 ml 1600 ml Balance -230 ml -1600 ml 480 ml 240 ml Intake Oral 120 ml 480 ml 240 ml IV Total 100 ml Output Urine Total 450 ml 1600 ml # Voids 1 4 # Bowel Movements 0 0 0 Result Diagram: 09/14/17 0600 09/12/17 0813 Imaging Last 24 hours Impressions Hip and Pelvis X-Ray 09/12/17 1038 Signed Impressions: Service Date/Time: Tuesday, September 12, 2017 11:12 - CONCLUSION: Anatomic alignment bilaterally with new hip on the right. Gene Starkey MD Chest X-Ray 09/11/17 1520 Signed Impressions: Service Date/Time: Monday, September 11, 2017 15:49 - CONCLUSION: No acute cardiopulmonary disease identified. Tomer Rodgers MD Objective Remarks Sleepy but easily aroused, No acute distress. Pulmonary: Normal respiratory effort. Right lower extremity: Neurovascularly intact, CSK, +EHL/TA/G, dressing clean, dry and intact. + PT/DP pulses. Supple compartments. Negative Homans sign. + UTI Assessment & Plan Ortho Post Op Day #: 2 Problem List: Assessment and Plan POD #2: Right hip Hemiarthroplasty 1. WBAT RLE 2. Eliquis 2.5 mg BID while in the hospital and then discharge on 5 mg BID ( normal dosing) 3. Ice to the right hip PRN 4. Posterior hip precautions 5. No touch dressing. First dressing change in the office 6. Anticipatory discharge to SNF today or tomorrow 7. F/U in the office in 1-[address] Michaels or JOSE Carlson 8. UTI on Levaquin daily Jose Allen Sep 14, 2017 15:19
[2017-09-14 16:00] VITALS: BP 136/59; PULSE 68; RESP 16; TEMP 97.2; O2SAT 100
--- NOTE | 2017-09-14 17:59 | RADRPT ---
EXAM DATE/TIME: 09/14/2017 17:13 [facility] COMPARISON: SHOULDER RIGHT COMPLETE (>2VWS), September 11, 2017, 17:47. INDICATIONS : Right shoulder pain after fall. MEDICAL HISTORY : Hypertension. Congestive heart failure. SURGICAL HISTORY : Fusion, cervical. Bilateral total hip replacements. Right breast lumpectomy. Hernia. ENCOUNTER: Subsequent ACUITY: 3 day PAIN SCORE: 4/10 LOCATION: Right shoulder. TECHNIQUE: Multiplanar, multisequence MRI examination was performed without contrast. FINDINGS: There is a large full-thickness rotator cuff tear that involves essentially all of the supraspinatus and approximately a third of the anterior most fibers of infraspinatus. Torn tendon fibers are retrac anastasiya medially to the level of the glenoid. There is mild atrophy of the supraspinatus and infraspinatu s muscle bellies. There is moderate subacromial/subdeltoid bursitis. Type II acromion with moderate subacromial spurring. There is moderate to severe osteoarthritis with associated spurring of the acromioclavicular joint. Mild glenohumeral joint osteoarthritis with a small effusion and mild synovitis. Synovial debris and/ or tiny osteochondral body seen in the axillary recess. Localized degenerative tearing seen of the valentin perior labrum. Long head biceps tendon is intact. The joint capsule is within normal limits. CONCLUSION: 1. Large full-thickness rotator cuff tear involving supraspinatus and infraspinatus. Mild atrophy of the muscle bellies. 2. Moderate subacromial/subdeltoid bursitis. 3. 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 4. Mild osteoarthritis of the glenohumeral joint with a short segment SLAP. 5. No fracture or subluxation of the right shoulder. Rodrigo Wasserman MD on September 14, 2017 at 17:54 Board Certified Radiologist. This report was verified electronically.
[2017-09-14 19:10] VITALS: BP 173/91; PULSE 86; RESP 18; TEMP 98.7; O2SAT 98
[2017-09-14] MEDS: LISINOPRIL 5 MG TAB PO SCH (20:41)
[2017-09-14 23:10] VITALS: BP 142/59; PULSE 81; RESP 18; TEMP 98.9; O2SAT 96
[2017-09-15] MEDS: ACETAMINOPHEN 325 MG TAB PO PRN ×3 (04:06→13:16)
[2017-09-15] MEDS: GABAPENTIN 100 MG CAP PO SCH ×2 (05:27→13:14)
[2017-09-15 07:41] LABS: HEMOGLOBIN 9.7 GM/DL (11.6-15.3); MEAN CELL VOLUME 92.8 FL (80.0-100.0); MEAN CORPUSCULAR HEMOGLOBIN 31.2 PG (27.0-34.0); MEAN CORPUSCULAR HGB CONC 33.6 % (32.0-36.0); MEAN PLATELET VOLUME 8.3 FL (7.0-11.0); PLATELET COUNT 185 TH/MM3 (150-450); RED BLOOD COUNT 3.13 MIL/MM3 (4.00-5.30); RED CELL DISTRIBUTION WIDTH 13.2 % (11.6-17.2); WHITE BLOOD COUNT 7.4 TH/MM3 (4.0-11.0)
[2017-09-15 08:00] VITALS: BP 141/87; PULSE 78; RESP 17; TEMP 96.7; O2SAT 98
[2017-09-15] MEDS: SODIUM CHLOR 0.9% 1000 ML INJ 1,000 ML IV SCH (08:38)
[2017-09-15] MEDS: DOCUSATE SODIUM 100 MG CAP PO SCH (09:00)
[2017-09-15] MEDS: DOCUSATE SODIUM 50 MG/SENNA 8.6 MG TAB PO SCH (09:00)
[2017-09-15] MEDS: CYANOCOBALAMIN 1,000 MCG TAB PO SCH (09:47)
[2017-09-15] MEDS: ISOSORBIDE MONONITRATE 30 MG TAB PO SCH (09:47)
[2017-09-15] MEDS: PRAVASTATIN SOD 40 MG TAB PO SCH (09:47)
[2017-09-15] MEDS: CHOLECALCIFEROL (VIT D3) 1000 UNIT TAB PO SCH (09:47)
[2017-09-15] MEDS: MULTIVITAMINS/MINERALS THERAPEUTIC TAB PO SCH (09:48)
[2017-09-15] MEDS: PANTOPRAZOLE SOD 20 MG DELAYED RELEASE TAB PO SCH (09:48)
[2017-09-15] MEDS: APIXABAN 2.5 MG TABLET PO SCH (09:48)
[2017-09-15] MEDS: CALCIUM/VITAMIN D 250 MG/125 U TAB PO SCH (09:48)
[2017-09-15] MEDS: METOPROLOL SUCCINATE 25 MG EXTENDED RELEASE TAB PO SCH (09:48)
[2017-09-15] MEDS: VITAMIN E 400 UNIT CAP PO SCH (09:48)
[2017-09-15] MEDS: MAGNESIUM OXIDE 400 MG TAB PO SCH (09:48)
[2017-09-15] MEDS: SODIUM CHLORIDE 0.9% FLUSH 10 ML FLUSH IV FLUSH SCH (09:49)
[2017-09-15] MEDS: LEVOFLOXACIN 500 MG TAB PO SCH (09:49)
[2017-09-15] MEDS ORDERED: NORC5TAB PO ×2 (10:18→10:28)
--- NOTE | 2017-09-15 11:45 | HHI.DCPOC ---
Discharge Care Plan Diagnosis: (1) Rotator cuff tear (2) Fracture of femoral neck, right, closed Goals to Promote Your Health * To prevent worsening of your condition and complications * To maintain your health at the optimal level Directions to Meet Your Goals Take your medications as prescribed Follow your dietary instruction Follow activity as directed Keep your appointments as scheduled Take your immunizations and boosters as scheduled If your symptoms worsen call your PCP, if no PCP go to Urgent Care Center or Emergency Room Smoking is Dangerous to Your Health. Avoid second hand smoke Call the 24-hour hour crisis hotline for domestic abuse at Tiny Mckeon MD Sep 15, 2017 11:45
--- NOTE | 2017-09-15 11:54 | HHI.DS ---
Discharge Summary Admission Date Sep 11, 2017 at 17:05 Discharge Date: Sep 15, 2017 Admitting Diagnosis Right hip pain, Fall. (1) Right hip pain ICD Code: M25.551 - Pain in right hip (2) Right shoulder pain ICD Code: M25.511 - Pain in right shoulder (3) A-fib ICD Code: I48.91 - Unspecified atrial fibrillation (4) HTN (hypertension) ICD Code: I10 - Essential (primary) hypertension Procedures 09/12 Right hip treatment of femoral neck fracture with hemiarthroplasty Brief History - From Admission 86-year-old female with past medical history of HTN, HLD, A. fib anticoagulated on Eliquis, CAD, CHF, COPD, and chronic kidney disease who was otherwise in her normal state of health when she fell earlier today. She complaints of right shoulder, right hip and leg pain which began shortly after falling today. Patient states that she was walking up her driveway when she fell when she lost her balance. Does remember experiencing some lightheadedness but no feelings of passing out. Denies any chest pain, shortness of breath, or heart palpitations. States that she feel back and caught herself with her right arm and then landed on the right right hip, and shoulder as well. Right after fall pain began, in the right hip, right shoulder and leg. Denies hitting her head. States after fall could not stand up, she has a medical emerge alert bracelet and utilized this to call for help. At the moment she rates her pain 8/10 on right hip, shoulder and leg. Describes pain as throbbing, right hip pain radiates to bottoms with movement. Right shoulder pain radiates down arm. Has receive Morphine for pain and states this has helped relieve pain, but not eliminated the pain completely. She also reports that the morphine has been making her sleepy. CBC/BMP: 09/15/17 0706 09/12/17 0813 Significant Findings Laboratory Tests Test 09/13/17 05:20 09/14/17 06:00 09/15/17 07:06 White Blood Count 11.2 TH/MM3 (4.0-11.0) Red Blood Count 2.98 MIL/MM3 (4.00-5.30) 3.00 MIL/MM3 (4.00-5.30) 3.13 MIL/MM3 (4.00-5.30) Hemoglobin 9.7 GM/DL (11.6-15.3) 9.6 GM/DL (11.6-15.3) 9.7 GM/DL (11.6-15.3) Hematocrit 28.0 % (35.0-46.0) 27.7 % (35.0-46.0) 29.0 % (35.0-46.0) Imaging Last Impressions Shoulder MRI 09/14/17 1226 Signed Impressions: Service Date/Time: Thursday, September 14, 2017 17:13 - CONCLUSION: 1. Large full-thickness rotator cuff tear involving supraspinatus and infraspinatus. Mild atrophy of the muscle bellies. 2. Moderate subacromial/subdeltoid bursitis. 3. 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 4. Mild osteoarthritis of the glenohumeral joint with a short segment SLAP. 5. No fracture or subluxation of the right shoulder. Rodrigo Wasserman MD Hip and Pelvis X-Ray 09/12/17 1038 Signed Impressions: Service Date/Time: Tuesday, September 12, 2017 11:12 - CONCLUSION: Anatomic alignment bilaterally with new hip on the right. Gene Starkey MD Chest X-Ray 09/11/17 1520 Signed Impressions: Service Date/Time: Monday, September 11, 2017 15:49 - CONCLUSION: No acute cardiopulmonary disease identified. Tomer Rodgers MD Shoulder X-Ray 09/11/17 0000 Signed Impressions: Service Date/Time: Monday, September 11, 2017 17:47 - CONCLUSION: No evidence of fracture. Tomer Rodgers MD Knee X-Ray 09/11/17 0000 Signed Impressions: Service Date/Time: Monday, September 11, 2017 15:55 - CONCLUSION: Osteoarthritic findings. No evidence of fracture. Tomer Rodgers MD Elbow X-Ray 09/11/17 0000 Signed Impressions: Service Date/Time: Monday, September 11, 2017 15:58 - CONCLUSION: No evidence of fracture. Tomer Rodgers MD PE at Discharge GENERAL: This is a well-nourished, well-developed patient, in no apparent distress. CARDIOVASCULAR: Regular rate and rhythm without murmurs, gallops, or rubs. RESPIRATORY: Clear to auscultation. Breath sounds equal bilaterally. No wheezes , rales, or rhonchi. GASTROINTESTINAL: Abdomen soft, non-tender, nondistended. Normal active bowel sounds MUSCULOSKELETAL: Right shoulder pain and decreased range of motion, other Extremities without clubbing, cyanosis, or edema. NEURO: Alert & Oriented x4 to person, place, time, situation. Moves all ext x4 Pt update on day of discharge patient doing well today. No new complaints. Pain is well-controlled Discharge plans discussed with patient, nursing team and with daughter at bedside Hospital Course This patient is a very pleasant 86-year-old female who did have a hip fracture requiring hip arthroplasty. She did have this treated. She also did have urinary tract infection which was treated with oral medications and an MRI of the right shoulder which showed a tear and rotator cuff. Patient was recommended for weightbearing as tolerated with sling for support and comfort for the right arm and is status post right total hip arthroplasty. She will need outpatient follow-up for management of the shoulder and follow-up for the hip replacement Pt Condition on Discharge: Good Discharge Disposition: Discharge to SNF Discharge Time: <= 30 minutes Discharge Instructions DIET: Follow Instructions for: As Tolerated, No Restrictions Activities you can perform: Weight Bearing as Norberto, See Additionl Instruction Other Activity Instructions: wbat right (ok to remove sling when ambulating) shoulder and leg Follow up Referrals: Orthopedics with Filiberto Michaels MD New Medications: Commode 3-in-1 (Commode 3-in-1) 1 Mis Mis EA .ROUTE DIRECTED, #1 0 Refills Hydrocodone-Acetaminophen ([place]) 5 Mg-325 Mg Tab 1-2 TAB PO Q4H PRN for PAIN, #41 TAB 0 Refills Walker with Front Wheels (Walker with Front Wheels) 1 Mis Mis EA .ROUTE DIRECTED, #1 0 Refills Levofloxacin (Levaquin) 500 Mg Tablet 500 MG PO DAILY for Infection, #6 TAB Continued Medications: Apixaban (Eliquis) 5 Mg Tab 5 MG PO BID for Blood Clot Prevention, #60 TAB 0 Refills Aspirin (Aspirin) 81 Mg Chew 81 MG PO DAILY, TAB 0 Refills Calcium Carbonate-Vitamin D (Calcium 600+D 200) 600-200 Mg-Unit Tab 1 TAB PO DAILY for Nutritional Supplement, TAB 0 Refills Cholecalciferol (Vitamin D3) 1,000 Unit Tab 1000 UNITS PO DAILY for Nutritional Supplement, #1 BOTTLE 0 Refills Cyanocobalamin (Vitamin B-12) 1,000 Mcg Tab 1000 MCG PO DAILY for Nutritional Supplement, #1 BOTTLE 0 Refills Fenofibrate (Fenofibrate) 54 Mg Tab 54 MG PO DAILY for Cholesterol Management, #30 TAB 0 Refills Gabapentin (Gabapentin) 100 Mg Cap 100 MG PO Q8HR for Pain, #60 CAP 0 Refills Isosorbide Mononitrate ER (Isosorbide Mononitrate ER) 30 Mg Gerber 30 MG PO DAILY for Prevent Chest Pain, #30 TAB 0 Refills Lisinopril (Lisinopril) 2.5 Mg Tab 2.5 MG PO HS, #30 TAB 0 Refills Lovastatin (Lovastatin) 40 Mg Tab 40 MG PO DAILY for Cholesterol Management, #30 TAB 0 Refills Magnesium Oxide (Magnesium Oxide) 400 Mg Tab 400 MG PO DAILY for Nutritional Supplement, TAB 0 Refills Metoprolol Succinate ER 24 HR (Metoprolol Succinate ER 24 HR) 25 Mg Tab 25 MG PO BID, #30 TAB 0 Refills Nitroglycerin SL (Nitroglycerin SL) 0.4 Mg Subl 0.4 MG SL DIRECTED PRN for CHEST PAIN, #100 TAB.SL 0 Refills ONE TABLET UNDER THE TONGUE NEEDED FOR CHEST PAIN, MAY REPEAT EVERY FIVE MINUTES FOR A TOTAL OF 3 DOSES OR CALL 911 IF NO RELIEF Pantoprazole (Protonix) 20 Mg Tab 20 MG PO DAILY for Reflux, #30 TAB 0 Refills Spironolactone (Spironolactone) 25 Mg Tab 25 MG PO MoTh, #30 TAB 0 Refills Take 1 tablet (25mg) daily on Wednesday and Vitamin E (Vitamin E-400) 400 Unit Cap 400 UNITS PO DAILY for Nutritional Supplement Tiny Mckeon MD Sep 15, 2017 11:54
[2017-09-15 12:00] VITALS: BP 126/56; PULSE 70; RESP 17; TEMP 97.6; O2SAT 97
== END 2017-09-15 14:56 | DRG 470 ==
LOC: NEPC 15:08 → NEDA 17:05 → N06A 19:03 → N06B 20:47 → N06A 20:48
PROVIDERS: ADMIT Hospitalist; ATTEND Hospitalist
PROC: 0SRR01A Replacement of Right Hip Joint, Femoral Surface with Metal Synthetic Substitute, Uncemented, Open Approach (ICD-10-PCS; principal; 2017-09-12 09:16)
DX: S72.001A Fracture of unspecified part of neck of right femur, initial encounter for closed fracture (principal); I13.0 Hypertensive heart and chronic kidney disease with heart failure and stage 1 through stage 4 chronic kidney disease, or unspecified chronic kidney disease; I50.9 Heart failure, unspecified; N39.0 Urinary tract infection, site not specified; I48.91 Unspecified atrial fibrillation; Z79.02 Long term (current) use of antithrombotics/antiplatelets; N18.9 Chronic kidney disease, unspecified; J44.9 Chronic obstructive pulmonary disease, unspecified; S46.011A Strain of muscle(s) and tendon(s) of the rotator cuff of right shoulder, initial encounter; S40.211A Abrasion of right shoulder, initial encounter; S50.311A Abrasion of right elbow, initial encounter; W18.30XA Fall on same level, unspecified, initial encounter; Y93.89 Activity, other specified; Y92.008 Other place in unspecified non-institutional (private) residence as the place of occurrence of the external cause; E78.5 Hyperlipidemia, unspecified; I25.10 Atherosclerotic heart disease of native coronary artery without angina pectoris; Z95.5 Presence of coronary angioplasty implant and graft; R33.9 Retention of urine, unspecified; K59.09 Other constipation; Z96.642 Presence of left artificial hip joint; Z98.1 Arthrodesis status; H91.90 Unspecified hearing loss, unspecified ear; Z86.73 Personal history of transient ischemic attack (TIA), and cerebral infarction without residual deficits; Z88.0 Allergy status to penicillin; Z92.3 Personal history of irradiation; Z85.3 Personal history of malignant neoplasm of breast; Z87.891 Personal history of nicotine dependence
CPT/HCPCS: 71010; 73030; 73080; 73221; 73502; 73560; 80048; 81003; 85025; 85027; 85610; 85730; 87077; 87086; 87186; 93005; 94150; 96374; 96375; C1776; J0131; J0690; J1100; J1580; J2270; J2405; J3370; J7030; J7050; L1830

== ENCOUNTER 2017-11-25 15:38 | Emergency (ER) | payer MEDICARE, OTHER ==
[~2017-11-25] VITALS: Ht 160 cm; Wt 70.0 kg
[~2017-11-25 15:38] MED LIST changes: +COMMODE 3-IN-11 MIS; +LEVA500T33 PO; -MACR100C2 PO; +NORC5TAB PO; +VITA400C70 PO; -VITA400T20 PO; +WALKER WHEELS/F1 MIS
[2017-11-25 16:04] VITALS: BP 128/65; PULSE 71; RESP 16; TEMP 97.9; O2SAT 94
--- NOTE | 2017-11-25 16:33 | RADRPT ---
EXAM DATE/TIME: 11/25/2017 16:23 [facility] COMPARISON: CHEST SINGLE AP, September 11, 2017, 15:49. INDICATIONS : Evaluate chest for trauma, fell MEDICAL HISTORY : Hypertension. Congestive heart failure. SURGICAL HISTORY : Fusion, cervical. Bilateral total hip replacements. Right breast lumpectomy. ENCOUNTER: Initial ACUITY: 2 days PAIN SCORE: 0/10 LOCATION: chest FINDINGS: A single view of the chest demonstrates the lungs to be symmetrically aerated without evidence of mas s, infiltrate or effusion. The heart size is enlarged but stable.. Osseous structures are intact. N o definite rib fractures. No evidence of pneumothorax. CONCLUSION: No acute disease. No significant change has occurred. Tom Llanos MD on November 25, 2017 at 16:31 Board Certified Radiologist. This report was verified electronically.
--- NOTE | 2017-11-25 17:22 | PD ---
HPI Chief Complaint: Neuro Symptoms/ Deficits Time Seen by Provider: 16:54 Travel History International Travel<30 days: No Contact w/Intl Traveler<30days: No Traveled to known affect area: No History of Present Illness HPI 87-year-old female presents emergency department at the request of her friend who states she has had altered mental status and disorientation since last night. Says patient was going to lay in her bed and instead of laying with her head on the pillow, she laid across the bed, width-martínez. In addition, states that she is having trouble remembering things and has been shaking and drinking a lot today. Says when she went to the patient's house today, patient looked like she was in "outer space". When asked a question, apparently she is answering inappropriately and off-topic. Says she is making sense but not in the context of the conversation. He is also concerned that she may be dehydrated. Patient apparently lives alone. She has a history of atrial fibrillation on Eliquis hypertension, hyperlipidemia, congestive heart failure, TIAs, and a remote history of breast cancer. Says she went to her human resources receptionist yesterday and they may place a pacemaker for her "irregular heart rate". Says her TIA occurred prior to her starting Eliquis and states she is compliant with his medication. She is status post 3 months from a right hip arthroplasty in August 2017. She denies any falls, unusual abdominal pain. Patient states she may have some burning when she urinates along with frequency. PFSH Past Medical History Hx Anticoagulant Therapy: Yes Anemia: Yes Arthritis: Yes Asthma: No Atrial Fibrillation: Yes Autoimmune Disease: No Blood Disorders: No Anxiety: No Depression: No Heart Rhythm Problems: Yes Cancer: Yes (RT BREAST) Cardiac Catheterization: Yes Cardiovascular Problems: Yes High Cholesterol: Yes Chemotherapy: No Chest Pain: Yes Congestive Heart Failure: Yes COPD: Yes Cerebrovascular Accident: Yes (TIA) Coronary Artery Disease: Yes Diabetes: No Diminished Hearing: No Endocrine: No Gastrointestinal Disorders: Yes (HX OF C-DIFF) GERD: Yes Glaucoma: No Genitourinary: Yes (current uti) Headaches: No Hepatitis: No Hiatal Hernia: No Hypertension: Yes Immune Disorder: No Implanted Vascular Access Dvce: No Kidney Stones: No Musculoskeletal: Yes Neurologic: Yes Psychiatric: No Reproductive: No Respiratory: Yes Immunizations Current: Yes Migraines: No Myocardial Infarction: No Radiation Therapy: Yes Renal Failure: No Seizures: No Sickle Cell Disease: No Sleep Apnea: Yes Thyroid Disease: No Ulcer: Yes Influenza Vaccination: Yes ?: Not Menopausal: Yes Past Surgical History Abdominal Surgery: Yes (hernia repair) AICD: No Appendectomy: No Arteriovenous Shunt: No Cardiac Surgery: Yes Cholecystectomy: Yes Coronary Stent: Yes (X3) Ear Surgery: No Endocrine Surgery: No Eye Surgery: No Genitourinary Surgery: No Gynecologic Surgery: Yes (RT BRST LUMPECTOMY) Hysterectomy: Yes Insulin Pump: No Joint Replacement: Yes (R HIP) Neurologic Surgery: No Oral Surgery: No Pacemaker: No Thoracic Surgery: No Other Surgery: Yes (RIGHT BREAST LUMPECTOMY) Social History Alcohol Use: Yes (OCC. WINE) Tobacco Use: No Substance Use: No Allergies-Medications (Allergen,Severity, Reaction): Coded Allergies: Sulfa (Sulfonamide Antibiotics) (Verified Allergy, Severe, 11/25/17) codeine (Verified Allergy, Severe, Hallucinations, 11/25/17) & HIVES penicillin G (Verified Allergy, Severe, ITCHING, 11/25/17) Reported Meds & Prescriptions Reported Meds & Active Scripts Active Reported Vitamin E-400 (Vitamin E) 400 Unit Cap 400 Units PO DAILY Calcium 600+D 200 (Calcium Carbonate-Vitamin D) 600-200 Mg-Unit Tab 1 Tab PO DAILY Vitamin D3 (Cholecalciferol) 1,000 Unit Tab 1,000 Units PO DAILY Vitamin B-12 (Cyanocobalamin) 1,000 Mcg Tab 1,000 Mcg PO DAILY Isosorbide Mononitrate ER (Isosorbide Mononitrate) 30 Mg Gerber 30 Mg PO DAILY Magnesium Oxide 400 Mg Tab 400 Mg PO DAILY Spironolactone 25 Mg Tab 25 Mg PO MOTH Take 1 tablet (25mg) daily on Wednesday and Metoprolol Succinate ER 24 HR (Metoprolol Succinate) 25 Mg Tab 25 Mg PO BID Lisinopril 2.5 Mg Tab 2.5 Mg PO HS Fenofibrate 54 Mg Tab 54 Mg PO DAILY Protonix (Pantoprazole Sodium) 20 Mg Tab 20 Mg PO DAILY Nitroglycerin SL (Nitroglycerin) 0.4 Mg Subl 0.4 Mg SL DIRECTED PRN ONE TABLET UNDER THE TONGUE NEEDED FOR CHEST PAIN, MAY REPEAT EVERY FIVE MINUTES FOR A TOTAL OF 3 DOSES OR CALL 911 IF NO RELIEF Lovastatin 40 Mg Tab 40 Mg PO DAILY Gabapentin 100 Mg Cap 100 Mg PO DAILY Aspirin 81 Mg Chew 81 Mg PO DAILY Eliquis (Apixaban) 5 Mg Tab 5 Mg PO BID Review of Systems Except as stated in HPI: all other systems reviewed are Neg Physical Exam Narrative GENERAL: WD, WN in NAD SKIN: Focused skin assessment warm/dry. HEAD: Atraumatic. Normocephalic. EYES: Pupils equal and round. No scleral icterus. No injection or drainage. ENT: No nasal bleeding or discharge. Mucous membranes pink and moist. NECK: Trachea midline. No JVD. CARDIOVASCULAR: Regular rate and rhythm. No murmur appreciated. RESPIRATORY: No accessory muscle use. Clear to auscultation. Breath sounds equal bilaterally. GASTROINTESTINAL: Abdomen soft, non-tender, nondistended. Hepatic and splenic margins not palpable. MUSCULOSKELETAL: No obvious deformities. No clubbing. No cyanosis. No edema. NEUROLOGICAL: Awake and alert. No obvious cranial nerve deficits. Motor grossly within normal limits. Normal speech. PSYCHIATRIC: Appropriate mood and affect; insight and judgment normal. Data Data Last Documented VS Vital Signs Date Time Temp Pulse Resp B/P (MAP) Pulse Ox O2 Delivery O2 Flow Rate FiO2 11/25/17 19:31 75 20 142/68 (92) 98 11/25/17 17:28 Room Air 11/25/17 16:04 97.9 Orders Orders Blood Glucose (11/25/17 16:10) Oximetry (11/25/17 16:10) Iv Access Insert/Monitor (11/25/17 16:10) Ecg Monitoring (11/25/17 16:10) Oxygen Administration (11/25/17 16:10) Electrocardiogram (11/25/17 16:10) Complete Blood Count With Diff (11/25/17 16:10) Chest, Single Ap (11/25/17 16:10) Coag Profile (11/25/17 16:10) Urinalysis - C+S If Indicated (11/25/17 17:03) Comprehensive Metabolic Panel (11/25/17 17:03) Ammonia (11/25/17 17:03) Lactic Acid Sepsis Protocol (11/25/17 17:03) Sodium Chlorid 0.9% 500 Ml Inj (Ns 500 M (11/25/17 17:30) Ct Brain W/O Iv Contrast(Rout) (3/8/18 ) Ckmb (Isoenzyme) Profile (11/25/17 17:15) Troponin I (11/25/17 17:15) Ed Discharge Order (11/25/17 19:21) Labs Laboratory Tests Test 11/25/17 17:05 11/25/17 17:08 11/25/17 17:15 Urine Color YELLOW Urine Turbidity CLEAR Urine pH 5.5 Urine Specific [place] 1.014 Urine Protein NEG mg/dL Urine Glucose (UA) NEG mg/dL Urine Ketones NEG mg/dL Urine Occult Blood NEG Urine Nitrite NEG Urine Bilirubin NEG Urine Urobilinogen LESS THAN 2.0 MG/DL Urine Leukocyte Esterase TRACE Urine WBC 1 /hpf Urine Squamous Epithelial Cells <1 /hpf Microscopic Urinalysis Comment CULT NOT INDICATED White Blood Count 5.4 TH/MM3 Red Blood Count 3.71 MIL/MM3 Hemoglobin 11.4 GM/DL Hematocrit 33.9 % Mean Corpuscular Volume 91.2 FL Mean Corpuscular Hemoglobin 30.8 PG Mean Corpuscular Hemoglobin Concent 33.7 % Red Cell Distribution Width 14.4 % Platelet Count 202 TH/MM3 Mean Platelet Volume 8.1 FL Neutrophils (%) (Auto) 45.5 % Lymphocytes (%) (Auto) 44.2 % Monocytes (%) (Auto) 9.3 % Eosinophils (%) (Auto) 0.8 % Basophils (%) (Auto) 0.2 % Neutrophils # (Auto) 2.5 TH/MM3 Lymphocytes # (Auto) 2.4 TH/MM3 Monocytes # (Auto) 0.5 TH/MM3 Eosinophils # (Auto) 0.0 TH/MM3 Basophils # (Auto) 0.0 TH/MM3 CBC Comment DIFF FINAL Differential Comment Prothrombin Time 12.4 SEC Prothromb Time International Ratio 1.2 RATIO Activated Partial Thromboplast Time 30.1 SEC Blood Urea Nitrogen 20 MG/DL Creatinine 0.81 MG/DL Random Glucose 94 MG/DL Total Protein 7.4 GM/DL Albumin 4.0 GM/DL Calcium Level 9.1 MG/DL Alkaline Phosphatase 46 U/L Aspartate Amino Transf (AST/SGOT) 21 U/L Alanine Aminotransferase (ALT/SGPT) 15 U/L Total Bilirubin 0.6 MG/DL Sodium Level 141 MEQ/L Potassium Level 3.9 MEQ/L Chloride Level 106 MEQ/L Carbon Dioxide Level 26.0 MEQ/L Anion Gap 9 MEQ/L Estimat Glomerular Filtration Rate 67 ML/MIN Lactic Acid Level 0.9 mmol/L Ammonia 25 MCMOL/L Total Creatine Kinase 90 U/L Troponin I 0.02 NG/ML MDM Medical Decision Making Medical Screen Exam Complete: Yes Emergency Medical Condition: Yes Differential Diagnosis UTI, dementia, altered mental status Narrative Course 87-year-old female presents emergency department at the request of her friend who states she has had altered mental status and disorientation since last night. Says patient was going to lay in her bed and instead of laying with her head on the pillow, she laid across the bed, width-martínez. In addition, states that she is having trouble remembering things and has been shaking and drinking a lot today. Says when she went to the patient's house today, patient looked like she was in "outer space". When asked a question, apparently she is answering inappropriately and off-topic. Says she is making sense but not in the context of the conversation. He is also concerned that she may be dehydrated. Patient apparently lives alone. She has a history of atrial fibrillation on Eliquis hypertension, hyperlipidemia, congestive heart failure, TIAs, and a remote history of breast cancer. Says she went to her human resources receptionist yesterday and they may place a pacemaker for her "irregular heart rate". Says her TIA occurred prior to her starting Eliquis and states she is compliant with his medication. She is status post 3 months from a right hip arthroplasty in August 2017. She denies any falls, unusual abdominal pain. Patient states she may have some burning when she urinates along with frequency. Denies fevers , chest pain, shortness of breath, unusual abdominal pain. Says that she has an abdominal hernia. Vital signs stable. EKG shows A fib with rate 73, no STEMI changes. Last Impressions Chest X-Ray 11/25/17 1610 Signed Impressions: Service Date/Time: November 16:23 - CONCLUSION: No acute disease. No significant change has occurred. Tom Llanos MD Head CT 11/25/17 0000 Signed Impressions: Service Date/Time: November 18:08 - CONCLUSION: 1. No acute findings. 2. Moderate severity atrophy, similar to 2016. Bryce Davidson MD Labs show cardiac enzymes negative. ammonia 25, lactic 0.9. mild, chronic anemia , white blood cell count 5.4, coags stable, urinalysis noncontributory. I discussed this case with my attending who also saw this patient. Based off of H&P, it appears patient has had a transient alteration of awareness. Unconvincing of a TIA based off of history and pt states compliance with her medications. Consider mild dehydration vs developing dementia. She is to follow up with her PCP. Patient will be discharged and advised to follow-up with her human resources receptionist tomorrow. She states understanding will comply. Diagnosis Primary Impression: Generalized weakness Additional Impression: Transient alteration of awareness Referrals: Primary Care Physician Additional Instructions: Follow up with your Primary care physician within 2-3 days. Ensure adequate fluid intake and proper nutrition. Follow up with Dr. Hunter as discussed. Disposition: 01 DISCHARGE HOME Condition: Stable Shari Cueva Nov 25, 2017 17:22
[2017-11-25 17:26] VITALS: RESP 18; O2SAT 98
[2017-11-25 17:28] VITALS: BP 161/66; PULSE 74; RESP 18; O2SAT 99
[2017-11-25] MEDS ORDERED: SODIUM CHLORID 0.9% 500 ML INJ 500 ML IV ONE (17:30)
[2017-11-25 17:54] LABS: AUTOMATED NEUTROPHIL # 2.5 TH/MM3 (1.8-7.7); BASOPHIL % 0.2 % (0.0-2.0); EOSINOPHIL % 0.8 % (0.0-4.0); HEMATOCRIT 33.9 % (35.0-46.0); HEMOGLOBIN 11.4 GM/DL (11.6-15.3); LYMPH % 44.2 % (9.0-44.0); LYMPHOCYTE # 2.4 TH/MM3 (1.0-4.8); MEAN CELL VOLUME 91.2 FL (80.0-100.0); MEAN CORPUSCULAR HEMOGLOBIN 30.8 PG (27.0-34.0); MEAN CORPUSCULAR HGB CONC 33.7 % (32.0-36.0); MEAN PLATELET VOLUME 8.1 FL (7.0-11.0); MONO % 9.3 % (0.0-8.0); MONOCYTE # 0.5 TH/MM3 (0-0.9); NEUT % 45.5 % (16.0-70.0); PLATELET COUNT 202 TH/MM3 (150-450); RED BLOOD COUNT 3.71 MIL/MM3 (4.00-5.30); RED CELL DISTRIBUTION WIDTH 14.4 % (11.6-17.2); WHITE BLOOD COUNT 5.4 TH/MM3 (4.0-11.0)
[2017-11-25 17:58] LABS: ALT (GPT) 15 U/L (10-53); AST (GOT) 21 U/L (15-37); BLOOD UREA NITROGEN 20 MG/DL (7-18); CALCIUM 9.1 MG/DL (8.5-10.1); CHLORIDE 106 MEQ/L (98-107); CREATININE 0.81 MG/DL (0.50-1.00); GLOMERULAR FILTRATION RATE 67 ML/MIN (>89); GLUCOSE,RANDOM 94 MG/DL (74-106); SODIUM (NA) 141 MEQ/L (136-145)
[2017-11-25 18:01] LABS: ALKALINE PHOSPHATASE 46 U/L (45-117); TOTAL BILIRUBIN ADULT 0.6 MG/DL (0.2-1.0); TOTAL PROTEIN 7.4 GM/DL (6.4-8.2); TROPONIN I 0.02 NG/ML (0.02-0.05)
[2017-11-25 18:03] LABS: INTERNATIONAL NORMALIZED RATIO 1.2 RATIO; PROTHROMBIN TIME - PATIENT 12.4 SEC (9.8-11.6)
--- NOTE | 2017-11-25 18:47 | RADRPT ---
EXAM DATE/TIME: 11/25/2017 18:08 [facility] COMPARISON: CT BRAIN W/O CONTRAST, March 11, 2016, 12:59. INDICATIONS : Altered mental status. RADIATION DOSE: 34.63 CTDIvol (mGy) MEDICAL HISTORY : Cardiovascular disease. Hypertension. Carcinoma, breast.TIA SURGICAL HISTORY : None. ENCOUNTER: Initial ACUITY: 1 day PAIN SCALE: 2/10 LOCATION: Bilateral cranial TECHNIQUE: Multiple contiguous axial images were obtained of the head. Using automated exposure control and adj ustment of the mA and/or kV according to patient size, radiation dose was kept as low as reasonably a chievable to obtain optimal diagnostic quality images. DICOM format image data is available electro nically for review and comparison. FINDINGS: CEREBRUM: The sulci, ventricles, and basal cisterns are prominent, characteristic of moderate severity central and cortical atrophy. There is also decreased attenuation in the supratentorial white matter. The o verall appearance is similar to prior CT in 2016. No evidence of acute blood products, mass effect, or acute infarction. POSTERIOR FOSSA: The cerebellum and brainstem are intact. The 4th ventricle is midline. The cerebellopontine angle i s unremarkable. EXTRACRANIAL: The visualized portion of the orbits is intact. SKULL: The calvaria is intact. No evidence of skull fracture. CONCLUSION: 1. No acute findings. 2. Moderate severity atrophy, similar to 2016. Bryce Davidson MD on November 25, 2017 at 18:44 Board Certified Radiologist. This report was verified electronically.
[2017-11-25 18:52] LABS: BILIRUBIN, URINE NEG (NEG); BLOOD, URINE NEG (NEG); GLUCOSE,URINE NEG (NEG); KETONE, URINE NEG (NEG); NITRITE,URINE NEG (NEG); PH, URINE 5.5 (5.0-8.5); SQUAMOUS EPITHELIAL CELL URINE <1 /hpf (0-5); URINE COLOR YELLOW (YELLW/STRAW); URINE LEUKOCYTE ESTERASE TRACE (NEG)
[2017-11-25 19:31] VITALS: BP 142/68
--- NOTE | 2017-11-25 21:31 | PD ---
Data Data Last Documented VS Vital Signs Date Time Temp Pulse Resp B/P (MAP) Pulse Ox O2 Delivery O2 Flow Rate FiO2 11/25/17 19:31 75 20 142/68 (92) 98 11/25/17 17:28 Room Air 11/25/17 16:04 97.9 Orders Orders Blood Glucose (11/25/17 16:10) Oximetry (11/25/17 16:10) Iv Access Insert/Monitor (11/25/17 16:10) Ecg Monitoring (11/25/17 16:10) Oxygen Administration (11/25/17 16:10) Electrocardiogram (11/25/17 16:10) Complete Blood Count With Diff (11/25/17 16:10) Chest, Single Ap (11/25/17 16:10) Coag Profile (11/25/17 16:10) Urinalysis - C+S If Indicated (11/25/17 17:03) Comprehensive Metabolic Panel (11/25/17 17:03) Ammonia (11/25/17 17:03) Lactic Acid Sepsis Protocol (11/25/17 17:03) Sodium Chlorid 0.9% 500 Ml Inj (Ns 500 M (11/25/17 17:30) Ct Brain W/O Iv Contrast(Rout) (11/25/17 ) Ckmb (Isoenzyme) Profile (11/25/17 17:15) Troponin I (11/25/17 17:15) Ed Discharge Order (11/25/17 19:21) Labs Laboratory Tests Test 11/25/17 17:05 11/25/17 17:08 11/25/17 17:15 Urine Color YELLOW Urine Turbidity CLEAR Urine pH 5.5 Urine Specific [place] 1.014 Urine Protein NEG mg/dL Urine Glucose (UA) NEG mg/dL Urine Ketones NEG mg/dL Urine Occult Blood NEG Urine Nitrite NEG Urine Bilirubin NEG Urine Urobilinogen LESS THAN 2.0 MG/DL Urine Leukocyte Esterase TRACE Urine WBC 1 /hpf Urine Squamous Epithelial Cells <1 /hpf Microscopic Urinalysis Comment CULT NOT INDICATED White Blood Count 5.4 TH/MM3 Red Blood Count 3.71 MIL/MM3 Hemoglobin 11.4 GM/DL Hematocrit 33.9 % Mean Corpuscular Volume 91.2 FL Mean Corpuscular Hemoglobin 30.8 PG Mean Corpuscular Hemoglobin Concent 33.7 % Red Cell Distribution Width 14.4 % Platelet Count 202 TH/MM3 Mean Platelet Volume 8.1 FL Neutrophils (%) (Auto) 45.5 % Lymphocytes (%) (Auto) 44.2 % Monocytes (%) (Auto) 9.3 % Eosinophils (%) (Auto) 0.8 % Basophils (%) (Auto) 0.2 % Neutrophils # (Auto) 2.5 TH/MM3 Lymphocytes # (Auto) 2.4 TH/MM3 Monocytes # (Auto) 0.5 TH/MM3 Eosinophils # (Auto) 0.0 TH/MM3 Basophils # (Auto) 0.0 TH/MM3 CBC Comment DIFF FINAL Differential Comment Prothrombin Time 12.4 SEC Prothromb Time International Ratio 1.2 RATIO Activated Partial Thromboplast Time 30.1 SEC Blood Urea Nitrogen 20 MG/DL Creatinine 0.81 MG/DL Random Glucose 94 MG/DL Total Protein 7.4 GM/DL Albumin 4.0 GM/DL Calcium Level 9.1 MG/DL Alkaline Phosphatase 46 U/L Aspartate Amino Transf (AST/SGOT) 21 U/L Alanine Aminotransferase (ALT/SGPT) 15 U/L Total Bilirubin 0.6 MG/DL Sodium Level 141 MEQ/L Potassium Level 3.9 MEQ/L Chloride Level 106 MEQ/L Carbon Dioxide Level 26.0 MEQ/L Anion Gap 9 MEQ/L Estimat Glomerular Filtration Rate 67 ML/MIN Lactic Acid Level 0.9 mmol/L Ammonia 25 MCMOL/L Total Creatine Kinase 90 U/L Troponin I 0.02 NG/ML MDM Supervised Visit with ADOER: Yes Narrative Course I, Dr. Salinas, have reviewed the advance practice practitioner's documentation and am in agreement, met with the patient face to face, made the diagnosis, and the medical decision making was done by me. *My assessment and Findings: Seen and examined by me. Patient really had a transient alteration of awareness last night, she has the beginnings of dementia according to her daughter and states these episodes are becoming more frequent. Patient has not had any focal neurologic deficits however i offered patient admission for possible tia but I explained that this diagnosis is unlikely. Further the patient is already on Eliquis, she thinks that she can get an outpatient ultrasound of her carotid arteries to further stratify her risk for TIA in the future. She would like to home and follow up with her physicians. neurologically non focal on my exam. i think her symptoms of forgetfulness and transient alteration of awareness are more inline with budding dementia. The patient's daughter understands this and would like to take her home. discussed return to ed criteria. Diagnosis Primary Impression: Generalized weakness Additional Impression: Transient alteration of awareness Referrals: Primary Care Physician Patient Instructions: General Instructions, Weakness (ED), Altered Mental Status (ED) Additional Instruction: Follow up with your Primary care physician within 2-3 days. Ensure adequate fluid intake and proper nutrition. Follow up with Dr. Hunter as discussed. Disposition: 01 DISCHARGE HOME Condition: Stable Camron Salinas MD Nov 25, 2017 21:30
--- NOTE | 2017-11-25 23:49 | EKG ---
Date Performed: 11/25/2017 Time Performed: 16:58:07 PTAGE: 87 years EKG: ATRIAL FIBRILLATION MARKED LEFT AXIS DEVIATION SEPTAL MYOCARDIAL INFARCTION ABNORMAL ECG Si nce the prior tracing, there has been no significant change DOCTOR: Ten Briones Interpretating Date/Time 11/25/2017 23:49:00
== END 2017-11-25 19:50 | disposition home or self-care (01) ==
LOC: NEPC 15:38
DX: R53.1 Weakness (principal); R41.82 Altered mental status, unspecified; I48.91 Unspecified atrial fibrillation; I25.2 Old myocardial infarction; R94.31 Abnormal electrocardiogram [ECG] [EKG]; I10 Essential (primary) hypertension; E78.5 Hyperlipidemia, unspecified; I11.0 Hypertensive heart disease with heart failure; I50.9 Heart failure, unspecified
CPT/HCPCS: 70450; 71045; 80053; 81001; 82140; 82550; 83605; 84484; 85025; 85610; 85730; 93005; 99285; J7040

== ENCOUNTER 2017-12-24 11:35 | Day surgery (SDC) | payer OTHER ==
[~2017-12-24 11:35] MED LIST changes: -COMMODE 3-IN-11 MIS; -LEVA500T33 PO; -NORC5TAB PO; -WALKER WHEELS/F1 MIS
[2017-12-24] MEDS ORDERED: MUPIROCIN 2% OINT 1 APPLIC/GM SYR NASAL SCH (12:00)
[2017-12-24] MEDS ORDERED: VANCOMYCIN 1000 MG/NS 250 ML IV SCH ×2 (12:00)
[2017-12-24] MEDS ORDERED: CHLORHEXIDINE GLUCONATE 2 % 1 PACK (2 CLOTHS) TOPICAL SCH (12:00)
[2017-12-24] MEDS ORDERED: POVIDONE IODINE 5% (ANTISEPSIS KIT) 4 APPLICATIONS EACH NARE SCH (12:00)
[2017-12-24] MEDS ORDERED: NS 1000 ML IV SCH (12:00)
[2017-12-24] MEDS ORDERED: COQ-30CA2 PO (12:32)
[2017-12-24] MEDS ORDERED: FLUT50SP EACH NARE (12:32)
[2017-12-24] MEDS ORDERED: VENTAER INH (12:32)
[2017-12-24] MEDS ORDERED: MIDAZOLAM HCL 5 MG/ML VIAL (1 ML) ONE (13:31)
--- NOTE | 2017-12-24 14:01 | MR ---
cc: Rahul Hunter MD DATE: 12/24/2017 PROCEDURES PERFORMED: 1. 15 minutes of moderate IV sedation. 2. Loop recorder insertion. DESCRIPTION OF PROCEDURE: After informed consent was obtained, the patient received 2 mg of Versed and 25 mcg of fentanyl for moderate IV sedation. Next, a [employer] LINQ loop recorder was inserted subcutaneously in the left chest. The patient tolerated the procedure well without any apparent complications. Tachybrady pause and atrial fibrillation detection was enabled. The initial R-wave was 0.42 millivolts. The serial number was [id number]. MD MESFIN Lara/KAREN , 01:42 PM , 02:01 PM
== END 2017-12-24 15:47 | disposition home or self-care (01) ==
LOC: HDOC 11:35 → HDIC 11:35 → HDOC 15:47
PROVIDERS: ATTEND Nuclear Medicine Nuclear Cardiology
DX: R55 Syncope and collapse (principal); I25.10 Atherosclerotic heart disease of native coronary artery without angina pectoris; I48.91 Unspecified atrial fibrillation; R07.89 Other chest pain; R06.00 Dyspnea, unspecified
CPT/HCPCS: 33282; 99152; C1764; J2250; J3010; J3370; J7030; J7050

== ENCOUNTER 2018-04-11 09:45 | Inpatient (IN) ==
[2018-04-11 11:23] LABS: Baso % (Auto) 0.2 % (0.0-2.0); Eos % (Auto) 0.9 % (0.0-4.0); Hematocrit 34.6 % (35.0-46.0); Hemoglobin 11.5 gm/dL (11.6-15.3); Lymph % (Auto) 40.9 % (9.0-44.0); Mean Corpuscular HGB Conc 33.4 % (32.0-36.0); Mean Corpuscular Hemoglobin 30.6 pg (27.0-34.0); Mean Corpuscular Volume 91.6 fL (80.0-100.0); Mono # (Auto) 0.4 th/mm3 (0.0-0.9); Mono % (Auto) 8.2 % (0.0-8.0); Neut # (Auto) 2.5 th/mm3 (1.8-7.7); Neut % (Auto) 49.8 % (16.0-70.0); Platelet Count 217 th/mm3 (150-450); Red Blood Count 3.78 mil/mm3 (4.00-5.30); Red Cell Distribution Width 13.8 % (11.6-17.2); White Blood Count 4.9 th/mm3 (4.0-11.0)
--- NOTE | 2018-04-11 11:23 | XR ---
EXAM DATE: 04/11/2018 11:17 AM EDT AGE/SEX: 87 years / Female INDICATIONS: Chest pain. CLINICAL DATA: This is the patient's initial encounter. Patient reports that signs and symptoms have been present for 2 days and indicates a pain score of 5/10. MEDICAL/SURGICAL HISTORY: Chronic obstructive pulmonary disease. Cardiovascular disease. Hypert ension. Carcinoma, breast. TIA . Loop recorder. [place] [facility] [place]. . FINDINGS: A single AP view of the chest demonstrates the lungs to be symmetrically aerated without evidence of mass, infiltrate or effusion. The cardiomediastinal contours are unremarkable. Osseous structures a re intact. The patient is again noted to be status post fusion in the upper thoracic spine region. A therosclerotic changes are present in the aorta. There are multiple overlying electrocardiogram leads . CONCLUSION: No acute cardiopulmonary disease. Electronically signed by: Gray Maza MD 04/11/2018 11:21 AM EDT
[2018-04-11 11:35] LABS: Activated Partial Thrombo Time 30.3 sec (24.3-30.1); INR 1.2 Ratio; Prothrombin Time 12.2 sec (9.8-11.6)
[2018-04-11 11:41] LABS: Alanine Aminotransferase 18 U/L (10-53); Albumin 4.6 g/dL (3.4-5.0); Anion Gap 4 meq/L (5-15); Aspartate Aminotransferase 24 U/L (15-37); Blood Urea Nitrogen 16 mg/dL (7-18); Calcium 9.9 mg/dL (8.5-10.1); Carbon Dioxide 32.6 meq/L (21.0-32.0); Chloride 102 meq/L (98-107); Glomerular Filtration Rate 52 mL/min (>89); Glucose,Random 84 mg/dL (74-106); Potassium 3.5 meq/L (3.5-5.1); Sodium 139 meq/L (136-145)
[2018-04-11 11:45] LABS: Alkaline Phosphatase 40 U/L (45-117); Total Protein 8.1 g/dL (6.4-8.2)
[2018-04-11] MEDS ORDERED: hydroCHLOROthiazide 25 MG Tablet PO ONE (14:31)
--- NOTE | 2018-04-11 14:48 | ED ---
HPI General Chief Complaint: Chest Pain Stated Complaint: Breathing Complaint Time Seen by Provider: 04/11/18 10:27 History of Present Illness HPI narrative: This is a 87-year-old female with history of coronary disease, hypertension, presents today with complaint of chest pain intermittently since . Patient reports it as substernal. There is no radiation. There is associated shortness of breath. She also reports associated nausea 2 days ago. She describes it as a pressure-like sensation. She states that she been taking her medications as prescribed however blood was noted to be elevated here in the emergency department. There are no other complaints at time of examination. Complete Quality Measures for STEMI Alert Patients Related Data Home Medications Medication Instructions Recorded Confirmed apixaban [Eliquis] 5 mg PO BID 04/11/18 04/11/18 escitalopram oxalate [Lexapro] 5 mg PO DAILY 04/11/18 04/11/18 hydrochlorothiazide 12.5 mg PO DAILY 04/11/18 04/11/18 isosorbide mononitrate 30 mg PO DAILY 04/11/18 04/11/18 losartan 100 mg PO DAILY 04/11/18 04/11/18 lovastatin 40 mg PO DAILY 04/11/18 04/11/18 metoprolol succinate 25 mg PO BID 04/11/18 04/11/18 pantoprazole 20 mg PO DAILY 04/11/18 04/11/18 sertraline [Zoloft] 50 mg PO DAILY 04/11/18 04/11/18 spironolactone [Aldactone] 25 mg PO DAILY 04/11/18 04/11/18 Allergies Allergy/AdvReac Type Severity Reaction Status Date / Time codeine Allergy Severe Hallucinati Verified 04/11/18 10:21 ons penicillin G Allergy Severe ITCHING Verified 04/11/18 10:21 Sulfa (Sulfonamide Allergy Severe Heartburn Verified 04/11/18 10:21 Antibiotics) Review of Systems Except as stated in HPI: all other systems reviewed are negative Constitutional Reports system reviewed and no additional complaints, except as docu Eyes Reports system reviewed and no additional complaints, except as docu ENT Reports system reviewed and no additional complaints, except as docu Cardiovascular Reports chest pain, Denies chest pain at rest and Denies palpitations Respiratory Denies chest congestion, Denies cough and Reports dyspnea Gastrointestinal Denies abdominal pain and Denies dyspepsia Genitourinary Reports system reviewed and no additional complaints, except [facility] Mus[facility] Reports system reviewed and no additional complaints, except as docu [facility] Medical History Medical History Angina at rest (Acute) Bilateral hip fractures (Acute) CHF (congestive heart failure) (Acute) COPD (chronic obstructive pulmonary disease) (Acute) H/O: hysterectomy (Acute) Hypertension (Acute) Surgical History Surgical History Hx of tonsillectomy (Acute) S/P appendectomy (Acute) Social History Social History Substance History: No History of Abuse Second Hand Smoke Exposure: No Smoking Status: Former smoker How Often Do You Have a Drink Containing Alcohol: 2 to 4 times a month Recent Travel in [facility] within the Last 8 Weeks: No Recent Out of Country Travel within the Last 8 Weeks: No Immunization History Tetanus Immunization: Unsure Hx Influenza Vaccine This Season: Yes Exam Narrative Exam Narrative: GENERAL: Well-developed well-nourished female in no acute respiratory distress. SKIN: Focused skin assessment warm/dry. HEAD: Atraumatic. Normocephalic. EYES: No scleral icterus. No injection or drainage. ENT: No nasal bleeding or discharge. Mucous membranes pink and moist. NECK: Trachea midline. Supple. CARDIOVASCULAR: Regular rate and rhythm. 3/6 systolic murmur appreciated. RESPIRATORY: No accessory muscle use. Clear to auscultation. Breath sounds equal bilaterally. GASTROINTESTINAL: Abdomen soft, non-tender, nondistended. Hepatic and splenic margins not palpable. MUSCULOSKELETAL: No obvious deformities. No clubbing. No cyanosis. No edema. NEUROLOGICAL: Awake and alert. No obvious cranial nerve deficits. Motor grossly within normal limits. Normal speech. Course Initial Documented Vital Signs Temperature 98.3 F 04/11/18 09:56 Pulse Rate 67 04/11/18 09:56 Respiratory Rate 20 04/11/18 09:56 Blood Pressure 211/88 H 04/11/18 09:56 Pulse Oximetry 95 04/11/18 09:56 Last Documented Vital Signs Temperature 98.3 F 04/11/18 09:56 Pulse Rate 61 04/11/18 13:14 Respiratory Rate 18 04/11/18 10:26 Blood Pressure 237/111 H 04/11/18 15:59 Pulse Oximetry 98 04/11/18 10:26 Medical Decision Making MDM Narrative Medical decision making narrative: 87-year-old female who presents today with complaints of chest pain since . She reports it as intermittent. Patient's EKG and cardiac enzymes are within normal limits. She will be admitted to the chest pain center for rule out therapy. She has been started back on her blood pressure medicines as she was unsure whether she took them today. She had blood pressure of 214/98. She was pain-free at the time of my evaluation. Patient has been also given 1 inch of Nitropaste on her anterior chest wall. Despite this, her blood pressure still remains above 200 systolic. Given this, she will not be a good candidate for the chest pain center. We have given her clonidine 0.3 mg p.o. 1 dose. [facility]. Differential Diagnosis Differential Diagnosis: Unstable angina versus ACS versus hypertensive urgency Lab Data Result diagrams: 04/11/18 11:10 04/11/18 11:10 Lab Results 04/11/18 04/11/18 04/11/18 Range/Units 11:10 11:10 11:10 WBC 4.9 (4.0-11.0) th/mm3 RBC 3.78 L (4.00-5.30) mil/mm3 Hgb 11.5 L (11.6-15.3) gm/dL Hct 34.6 L (35.0-46.0) % MCV 91.6 (80.0-100.0) fL MCH 30.6 (27.0-34.0) pg MCHC 33.4 (32.0-36.0) % RDW 13.8 (11.6-17.2) % Plt Count 217 (150-450) th/mm3 MPV 8.0 (7.0-11.0) fL Neut % (Auto) 49.8 (16.0-70.0) % Lymph % (Auto) 40.9 (9.0-44.0) % [place] % (Auto) 8.2 H (0.0-8.0) % Eos % (Auto) 0.9 (0.0-4.0) % Baso % (Auto) 0.2 (0.0-2.0) % Neut # (Auto) 2.5 (1.8-7.7) th/mm3 Lymph # (Auto) 2.0 (1.0-4.8) th/mm3 [place] # (Auto) 0.4 (0.0-0.9) th/mm3 Eos # (Auto) 0.0 (0.0-0.4) th/mm3 Baso # (Auto) 0.0 (0.0-0.2) th/mm3 WBC Differential . Differential Comment Auto diff final PT 12.2 H (9.8-11.6) sec INR 1.2 Ratio APTT 30.3 H (24.3-30.1) sec Sodium 139 (136-145) meq/L Potassium 3.5 (3.5-5.1) meq/L Chloride 102 (98-107) meq/L Carbon Dioxide 32.6 H (21.0-32.0) meq/L Anion Gap 4 L (5-15) meq/L BUN 16 (7-18) mg/dL Creatinine 1.00 (0.50-1.00) mg/dL Estimated GFR 52 L (>89) mL/min Random Glucose 84 (74-106) mg/dL Calcium 9.9 (8.5-10.1) mg/dL Total Bilirubin 1.0 (0.2-1.0) mg/dL AST 24 (15-37) U/L ALT 18 (10-53) U/L Alkaline Phosphatase 40 L (45-117) U/L Total Creatine Kinase (26-192) U/L Troponin I Less than 0.02 L (0.02-0.05) ng/mL Total Protein 8.1 (6.4-8.2) g/dL Albumin 4.6 (3.4-5.0) g/dL 04/11/18 Range/Units 14:50 WBC (4.0-11.0) th/mm3 RBC (4.00-5.30) mil/mm3 Hgb (11.6-15.3) gm/dL Hct (35.0-46.0) % MCV (80.0-100.0) fL MCH (27.0-34.0) pg MCHC (32.0-36.0) % RDW (11.6-17.2) % Plt Count (150-450) th/mm3 MPV (7.0-11.0) fL Neut % (Auto) (16.0-70.0) % Lymph % (Auto) (9.0-44.0) % [place] % (Auto) (0.0-8.0) % Eos % (Auto) (0.0-4.0) % Baso % (Auto) (0.0-2.0) % Neut # (Auto) (1.8-7.7) th/mm3 Lymph # (Auto) (1.0-4.8) th/mm3 [place] # (Auto) (0.0-0.9) th/mm3 Eos # (Auto) (0.0-0.4) th/mm3 Baso # (Auto) (0.0-0.2) th/mm3 WBC Differential Differential Comment PT (9.8-11.6) sec INR Ratio APTT (24.3-30.1) sec Sodium (136-145) meq/L Potassium (3.5-5.1) meq/L Chloride (98-107) meq/L Carbon Dioxide (21.0-32.0) meq/L Anion Gap (5-15) meq/L BUN (7-18) mg/dL Creatinine (0.50-1.00) mg/dL Estimated GFR (>89) mL/min Random Glucose (74-106) mg/dL Calcium (8.5-10.1) mg/dL Total Bilirubin (0.2-1.0) mg/dL AST (15-37) U/L ALT (10-53) U/L Alkaline Phosphatase (45-117) U/L Total Creatine Kinase 108 (26-192) U/L Troponin I Less than 0.02 L (0.02-0.05) ng/mL Total Protein (6.4-8.2) g/dL Albumin (3.4-5.0) g/dL Imaging Data Radiologist's impression: Chest X-Ray 04/11/18 11:03 CONCLUSION: No acute cardiopulmonary disease. Discharge Plan Discharge Disposition Patient Disposition: 30 Still Patient Discharge Details Diagnosis: Chest pain, Hypertension Physicians Team ED Provider: Rolly Harkins Primary Care Provider: Evelio Garcia V Attending Provider: Gloria Kiser ED Status: Admitted Observation Patient
[2018-04-11] MEDS ORDERED: hydrALAZINE HCl Inj 20 MG/ML Vial IV.PUSH ONE (15:25)
[2018-04-11 15:40] LABS: Creatine Kinase 108 U/L (26-192)
--- NOTE | 2018-04-11 17:03 | P.HP ---
History of Present Illness Service: Hospitalist Primary Care Physician: Evelio Garcia MD Chief Complaint: Heart racing. History of Present Illness: Ms. Rahman is a pleasant 87-year-old female with a history of atrial fibrillation, hypertension who presents to the emergency due to heart palpitation. She had some chest discomfort without any radiation. She had mild shortness of breath and headache as well. No N/V, diaphoresis. On arrival, she was found to have elevated blood pressure 210-248 systolic and around 110 diastolic. Troponins x 2 negative. EKG shows Afib with heart rate in the 60s. At the time of this interview, patient denies any chest pain, shortness of breath, fever or chills. She denies any cough, abdominal pain. No changes in bowel or bladder habits. - Diagnosis (1) Hypertensive urgency (2) Atrial fibrillation Review of Systems All other systems reviewed negative except as stated in HPI [facility] - History History Provided By: Patient - Medical History Medical History: Medical History (Last Updated 04/11/18 @ 10:31 by Lily Combs) Angina at rest Bilateral hip fractures CHF (congestive heart failure) COPD (chronic obstructive pulmonary disease) H/O: hysterectomy Hypertension - Surgical History Surgical History: Surgical History (Last Updated 04/11/18 @ 10:24 by Lily Combs) Hx of tonsillectomy S/P appendectomy - Tobacco History Second Hand Smoke Exposure: No Tobacco Use In Past 30 Days: No Smoking Status: Former smoker - Alcohol History How Often Do You Have a Drink Containing Alcohol: 2 to 4 times a month - Substance Use History Substance History: No History of Abuse - Travel History Recent Travel in the [place] Within the Last 8 Weeks: No Recent Travel Out of the Country Within the Last 8 Weeks: No - Immunization History Tetanus Immunization: Unsure Hx Influenza Vaccine This Season: Yes Medications and Allergies Active Medications: Active Medications Apixaban (Eliquis) 5 mg PO BID [facility] Isosorbide Mononitrate (Imdur) 30 mg PO DAILY DIGNA Labetalol HCl (Trandate Inj) 20 mg IV.PUSH ONCE ONE Stop: 04/11/18 16:38 Metoprolol Succinate (Toprol Xl) 25 mg PO BID [facility] Non-Formulary Medication (Escitalopram Oxalate [Lexapro]) 5 mg PO DAILY [facility] Non-Formulary Medication (Losartan [Losartan]) 100 mg PO DAILY [facility] Non-Formulary Medication (Lovastatin [Lovastatin]) 40 mg PO DAILY [facility] Pantoprazole Sodium (Protonix) 20 mg PO DAILY [facility] Sertraline HCl (Zoloft) 50 mg PO DAILY [facility] Sodium Chloride (Ns Flush) 2 ml IV.FLUSH UNSCH PRN PRN Reason: FLUSH AFTER USING IV ACCESS Spironolactone (Aldactone) 25 mg PO DAILY DIGNA Allergies Allergy/AdvReac Type Severity Reaction Status Date / Time codeine Allergy Severe Hallucinati Verified 04/11/18 10:21 ons penicillin G Allergy Severe ITCHING Verified 04/11/18 10:21 Sulfa (Sulfonamide Allergy Severe Heartburn Verified 04/11/18 10:21 Antibiotics) Home Medications Medication Instructions Recorded Confirmed Type apixaban [Eliquis] 5 mg PO BID 04/11/18 04/11/18 History escitalopram oxalate [Lexapro] 5 mg PO DAILY 04/11/18 04/11/18 History hydrochlorothiazide 12.5 mg PO DAILY 04/11/18 04/11/18 History isosorbide mononitrate 30 mg PO DAILY 04/11/18 04/11/18 History losartan 100 mg PO DAILY 04/11/18 04/11/18 History lovastatin 40 mg PO DAILY 04/11/18 04/11/18 History metoprolol succinate 25 mg PO BID 04/11/18 04/11/18 History pantoprazole 20 mg PO DAILY 04/11/18 04/11/18 History sertraline [Zoloft] 50 mg PO DAILY 04/11/18 04/11/18 History spironolactone [Aldactone] 25 mg PO DAILY 04/11/18 04/11/18 History Exam Vital signs: Vital Signs 04/11/18 09:56 04/11/18 10:26 04/11/18 13:14 Temperature 98.3 F Pulse Rate 67 72 61 Respiratory Rate 20 18 Blood Pressure 211/88 H 220/100 H 214/98 H Pulse Oximetry 95 98 04/11/18 15:26 04/11/18 15:59 04/11/18 16:29 Temperature Pulse Rate Respiratory Rate Blood Pressure 248/110 H 237/111 H 220/110 H Pulse Oximetry 04/11/18 16:33 Temperature Pulse Rate Respiratory Rate Blood Pressure 254/118 H Pulse Oximetry Intake & Output 04/10/18 04/11/18 04/11/18 18:59 06:59 18:59 Weight 64.864 kg Narrative: GENERAL: This is a well-nourished, well-developed patient, in no apparent distress. SKIN: No rashes, ecchymoses or lesions. Warm and dry. HEAD: Atraumatic. Normocephalic. No temporal or scalp tenderness. EYES: Pupils equal round and reactive. No injection or drainage. ENT: Nose without bleeding, purulent drainage or septal hematoma. Airway patent. NECK: Trachea midline. No lymphadenopathy. Supple, nontender, no meningeal signs. CARDIOVASCULAR: Irregularly irregular, controlled rate without murmurs, gallops , or rubs. No JVD. RESPIRATORY: Clear to auscultation. Breath sounds equal bilaterally. No wheezes , rales, or rhonchi. GASTROINTESTINAL: Abdomen soft, non-tender, nondistended. No guarding. MUSCULOSKELETAL: Extremities without clubbing, cyanosis, or edema. NEUROLOGICAL: Awake and alert. Cranial nerves II through XII intact. No focal neurological deficits. Normal speech. Results - Labs CBC & Chem 7: 04/11/18 11:10 04/11/18 11:10 Labs: Laboratory Results - last 24 hr 04/11/18 04/11/18 04/11/18 11:10 11:10 11:10 WBC 4.9 RBC 3.78 L Hgb 11.5 L Hct 34.6 L MCV 91.6 MCH 30.6 MCHC 33.4 RDW 13.8 Plt Count 217 MPV 8.0 Neut % (Auto) 49.8 Lymph % (Auto) 40.9 [place] % (Auto) 8.2 H Eos % (Auto) 0.9 Baso % (Auto) 0.2 Neut # (Auto) 2.5 Lymph # (Auto) 2.0 Wirt # (Auto) 0.4 Eos # (Auto) 0.0 Baso # (Auto) 0.0 WBC Differential . Differential Comment Auto diff final PT 12.2 H INR 1.2 APTT 30.3 H Sodium 139 Potassium 3.5 Chloride 102 Carbon Dioxide 32.6 H Anion Gap 4 L BUN 16 Creatinine 1.00 Estimated GFR 52 L Random Glucose 84 Calcium 9.9 Total Bilirubin 1.0 AST 24 ALT 18 Alkaline Phosphatase 40 L Total Creatine Kinase Troponin I Less than 0.02 L Total Protein 8.1 Albumin 4.6 04/11/18 14:50 WBC RBC Hgb Hct MCV MCH MCHC RDW Plt Count MPV Neut % (Auto) Lymph % (Auto) [place]irt % (Auto) Eos % (Auto) Baso % (Auto) Neut # (Auto) Lymph # (Auto) [place]irt # (Auto) Eos # (Auto) Baso # (Auto) WBC Differential Differential Comment PT INR APTT Sodium Potassium Chloride Carbon Dioxide Anion Gap BUN Creatinine Estimated GFR Random Glucose Calcium Total Bilirubin AST ALT Alkaline Phosphatase Total Creatine Kinase 108 Troponin I Less than 0.02 L Total Protein Albumin - Imaging Impressions Chest X-Ray 04/11/18 11:03 CONCLUSION: No acute cardiopulmonary disease. Caprini VTE Risk Assessment Caprini VTE Risk Assessment: Moderate/High Risk (score >= 2) Caprini Risk Assessment Model: Point Value = 1 Point Value = 2 Point Value = 3 Point Value = 5 Age 41-60 Minor surgery BMI > 25 kg/m2 Swollen legs Varicose veins or History of unexplained or recurrent spontaneous Oral contraceptives or hormone replacement Sepsis (< 1 month) Serious lung disease, including pneumonia (< 1 month) Abnormal pulmonary function Acute myocardial infarction Congestive heart failure (< 1 month) History of inflammatory bowel disease Medical patient at bed rest Age 61-74 Arthroscopic surgery Major open surgery (> 45 min) Laparoscopic surgery (> 45 min) Malignancy Confined to bed (> 72 hours) Immobilizing plaster cast Central venous access Age >= 75 History of VTE Family history of VTE Factor V Leiden Prothrombin [id number] Lupus anticoagulant Anticardiolipin antibodies Elevated serum homocysteine Heparin-induced thrombocytopenia Other congenital or acquired thrombophilia Stroke (< 1 month) Elective arthroplasty Hip, pelvis, or leg fracture Acute spinal cord injury (< 1 month) Prophylaxis Regimen: Total Risk Factor Score Risk Level Prophylaxis Regimen 0-1 Low Early ambulation 2 Moderate Order ONE of the following: *Sequential Compression Device (SCD) *Heparin 5000 units SQ BID 3-4 Higher Order ONE of the following medications: *Heparin 5000 units SQ TID *Enoxaparin/Lovenox 40 mg SQ daily (WT < 150 kg, CrCl > 30 mL/min) *Enoxaparin/Lovenox 30 mg SQ daily (WT < 150 kg, CrCl > 10-29 mL/min) *Enoxaparin/Lovenox 30 mg SQ BID (WT < 150 kg, CrCl > 30 mL/min) AND/OR *Sequential Compression Device (SCD) 5 or more Highest Order ONE of the following medications: *Heparin 5000 units SQ TID (Preferred with Epidurals) *Enoxaparin/Lovenox 40 mg SQ daily (WT < 150 kg, CrCl > 30 mL/min) *Enoxaparin/Lovenox 30 mg SQ daily (WT < 150 kg, CrCl > 10-29 mL/min) *Enoxaparin/Lovenox 30 mg SQ BID (WT < 150 kg, CrCl > 30 mL/min) AND *Sequential Compression Device (SCD) Assessment and Plan - Assessment (1) Hypertensive urgency Code(s): I16.0 - Hypertensive urgency Status: Acute (2) Atrial fibrillation Code(s): I48.91 - Unspecified atrial fibrillation Status: Acute - Plan Ms. Rahman is a pleasant 87-year-old female with a history of atrial fibrillation, hypertension who presents to the emergency department due to feeling of palpitation. On arrival patient was found to have systolic blood pressure in the range of 210-248. Troponins 2 were negative. Hypertensive urgency -Systolic blood pressure up to 248. -Patient received clonidine 0.3 mg, metoprolol succinate 25 mg once, losartan 100 mg as well as HCTZ 12.5 mg p.o. -Discussed with nursing staff. If blood pressure does not improve, we will give her 1 dose of labetalol 20 mg IV. -Goal is to gradually decrease blood pressure. -If additional PO BP med needed, consider Amlodipine or Nifedipine for chronic BP control. Chest pain -Very atypical. Troponins 2 negative. Will check 1 more set of troponin. -Continue Imdur 30 mg daily, beta-robin, spironolactone, losartan. Atrial fibrillation -Continue metoprolol succinate 25 mg daily. For better control, we could consider Carvedilol 6.25mg BID. -Continue apixaban 5 mg twice daily. Full code. Apixaban.
[2018-04-11] MEDS ORDERED: Labetalol HCl Inj 100 MG/20 ML Vial IV.PUSH ONE (18:30)
--- NOTE | 2018-04-12 08:31 | P.PN ---
Subjective Interval history: Follow up for hypertensive urgency, palpitations. The patient reports feeling much better today. She denies any further palpitations or chest discomfort. Denies any shortness of breath. She complains of some dysuria and believes she has a UTI. She states she recently completed 1 week course of antibiotics for UTI, diagnosed at her PCP's office, Dr. Garcia. Denies any fevers/chills or abdominal pain. Of note, RN reports multiple episodes of bradycardia with HR into the 30s on telemetry. Physical Exam Vital signs: Vital Signs 04/11/18 09:56 04/11/18 10:26 04/11/18 13:14 Temperature 98.3 F Pulse Rate 67 72 61 Respiratory Rate 20 18 Blood Pressure 211/88 H 220/100 H 214/98 H Pulse Oximetry 95 98 04/11/18 15:26 04/11/18 15:59 04/11/18 16:29 Temperature Pulse Rate Respiratory Rate Blood Pressure 248/110 H 237/111 H 220/110 H Pulse Oximetry 04/11/18 16:33 04/11/18 17:06 04/11/18 17:27 Temperature Pulse Rate 56 L Respiratory Rate Blood Pressure 254/118 H 197/85 H 160/95 H Pulse Oximetry 04/11/18 19:23 04/11/18 20:46 04/11/18 21:05 Temperature 98.5 F Pulse Rate 52 L 57 L 47 L Respiratory Rate 17 Blood Pressure 120/55 L 119/60 Pulse Oximetry 93 L 04/11/18 21:40 04/11/18 22:00 04/11/18 23:51 Temperature 98.4 F Pulse Rate 56 L 52 L Respiratory Rate 17 Blood Pressure 104/51 L 106/52 L Pulse Oximetry 94 L 04/12/18 03:34 04/12/18 07:39 Temperature 98.4 F 97.7 F Pulse Rate 56 L 52 L Respiratory Rate 17 14 Blood Pressure 99/48 L 127/58 L Pulse Oximetry 99 97 Intake & Output 04/11/18 04/12/18 04/12/18 18:59 06:59 18:59 Weight 64.864 kg Narrative: GENERAL: Well-nourished, well-developed pleasant elderly female patient in [facility]. SKIN: Warm and dry. No rash. HEENT: Normocephalic. Atraumatic. Pupils equal and round. Mucous membranes pink and moist. NECK: Supple. Trachea midline. CARDIOVASCULAR: Bradycardic and irregular rhythm. No murmur appreciated. RESPIRATORY: No accessory muscle use. Clear to auscultation. Breath sounds equal bilaterally. GASTROINTESTINAL: Abdomen soft, non-tender, nondistended. Normoactive bowel sounds x4. MUSCULOSKELETAL: No obvious deformities. Extremities without clubbing, cyanosis , or edema. NEUROLOGICAL: Awake and alert. No obvious cranial nerve deficits. Motor grossly within normal limits. Moving all extremities spontaneously. Normal speech. PSYCHIATRIC: Appropriate mood and affect; insight and judgment normal. Results - Labs CBC & Chem 7: 04/11/18 11:10 04/11/18 11:10 Laboratory Results - last 24 hr 04/11/18 04/11/18 04/11/18 11:10 11:10 11:10 WBC 4.9 RBC 3.78 L Hgb 11.5 L Hct 34.6 L MCV 91.6 MCH 30.6 MCHC 33.4 RDW 13.8 Plt Count 217 MPV 8.0 Neut % (Auto) 49.8 Lymph % (Auto) 40.9 [place] % (Auto) 8.2 H Eos % (Auto) 0.9 Baso % (Auto) 0.2 Neut # (Auto) 2.5 Lymph # (Auto) 2.0 [place] # (Auto) 0.4 Eos # (Auto) 0.0 Baso # (Auto) 0.0 WBC Differential . Differential Comment Auto diff final PT 12.2 H INR 1.2 APTT 30.3 H Sodium 139 Potassium 3.5 Chloride 102 Carbon Dioxide 32.6 H Anion Gap 4 L BUN 16 Creatinine 1.00 Estimated GFR 52 L Random Glucose 84 Calcium 9.9 Total Bilirubin 1.0 AST 24 ALT 18 Alkaline Phosphatase 40 L Total Creatine Kinase Troponin I Less than 0.02 L Total Protein 8.1 Albumin 4.6 04/11/18 04/11/18 14:50 20:21 WBC RBC Hgb Hct MCV MCH MCHC RDW Plt Count MPV Neut % (Auto) Lymph % (Auto) [place] % (Auto) Eos % (Auto) Baso % (Auto) Neut # (Auto) Lymph # (Auto) [place] # (Auto) Eos # (Auto) Baso # (Auto) WBC Differential Differential Comment PT INR APTT Sodium Potassium Chloride Carbon Dioxide Anion Gap BUN Creatinine Estimated GFR Random Glucose Calcium Total Bilirubin AST ALT Alkaline Phosphatase Total Creatine Kinase 108 Troponin I Less than 0.02 L 0.02 Total Protein Albumin - Imaging Impressions Chest X-Ray 04/11/18 11:03 CONCLUSION: No acute cardiopulmonary disease. Assessment and Plan - Assessment (1) Hypertensive urgency Code(s): I16.0 - Hypertensive urgency Status: Acute (2) Atrial fibrillation Code(s): I48.91 - Unspecified atrial fibrillation Status: Acute - Plan 87-year-old female with a history of atrial fibrillation, hypertension who presents with palpitations. On arrival patient was found to have systolic blood pressure in the range of 210-248. Hypertensive urgency: Patient presented with SBP up to 248 in the ED. -S/p clonidine 0.3 mg, metoprolol succinate 25 mg, losartan 100 mg as well as HCTZ 12.5 mg p.o. -Goal is to gradually decrease blood pressure. -Continued on losartan 100mg daily however patient's metoprolol on hold due to bradycardia -BP much improved, borderline hypotensive overnight, will continue to monitor Chest pain: Very atypical. -ACS ruled out with negative troponins 3 and EKG without acute ischemic changes -Continue Imdur 30 mg daily, spironolactone, losartan. -Holding BB due to bradycardia -Chest pain currently resolved Atrial fibrillation with SVR: HR into the 30s on telemetry, suspect secondary to receiving multiple BP medications upon arrival -Holding metoprolol -Continue apixaban 5 mg twice daily. -monitor on telemetry -Consult patient's wind operations manager Dr. Hunter DVT Prophylaxis: Eliquis Full code. Discharge Planning: Pending further clinical improvement of BP and HR. Await cardiology consult.
[2018-04-12] MEDS: Pantoprazole Sodium 20 MG DR Tablet PO SCH (09:45)
[2018-04-12] MEDS: Spironolactone 25 MG Tablet PO SCH (09:50)
[2018-04-12] MEDS: Escitalopram 10 MG Tablet PO SCH (09:51)
[2018-04-12] MEDS: Sertraline 50 MG Tablet PO SCH (09:52)
--- NOTE | 2018-04-12 10:06 | ECG ---
Date Performed: 04/11/2018 Time Performed: 22:19:36 PTAGE: 87 years EKG: ATRIAL FIBRILLATION WITH SLOW VENTRICULAR RESPONSE MARKED LEFT AXIS DEVIATION ANTEROSEPTAL MYOCARDIAL INFARCTION ABNORMAL ECG PREVIOUS TRACING : 04/11/2018 15.05 DOCTOR: Jose Isaacs Interpretating Date/Time 04/12/2018 10:05:30
--- NOTE | 2018-04-12 11:04 | ECG ---
Date Performed: 04/11/2018 Time Performed: 15:05:45 PTAGE: 87 years EKG: ATRIAL FIBRILLATION WITH SLOW VENTRICULAR RESPONSE LEFT AXIS DEVIATION ABNORMAL ECG NO PREVIOUS TRACING DOCTOR: Jose Isaacs Interpretating Date/Time 04/12/2018 11:02:30
--- NOTE | 2018-04-12 11:18 | ECG ---
Date Performed: 04/11/2018 Time Performed: 10:06:13 PTAGE: 87 years EKG: ATRIAL FIBRILLATION WITH ABERRANT CONDUCTION OR VENTRICULAR PREMATURE COMPLEXES MARKED LEFT AXIS DEVIATION SEPTAL MYOCARDIAL INFARCTION ABNORMAL ECG NO PREVIOUS TRACING DOCTOR: Jose Isaacs Interpretating Date/Time 04/12/2018 11:16:33
[2018-04-12] MEDS: Isosorbide Mononitrate 30 MG ER 24HR Tablet (Imdur) PO SCH (20:16)
--- NOTE | 2018-04-13 01:35 | MB ---
cc: Ten Briones DO DATE: 04/12/2018 REASON FOR CONSULTATION: Palpitations, bradycardia. HISTORY OF PRESENT ILLNESS: Marcelina Rahman is a pleasant 87-year-old female who sees my partner, Dr. Mondragon, in the office and presented to [facility] due to heart palpitations. She states that she could feel her heart beating sometimes fast, but mostly felt like it was skipping a beat or slow. She does have mild shortness of breath. On arrival, she had a blood pressure of 254/118. She was given multiple medications including clonidine, Toprol-XL. Afterwards, she was noted to have heart rates in the low 40s. I was asked to see her due to her atrial fibrillation with slow ventricular response. In seeing her, she is currently hemodynamically stable with heart rates in 50s and states that she has no chest pain, but just can feel her heart beating, which bothers her. PAST MEDICAL HISTORY: 1. Atrial fibrillation. 2. Bilateral hip fractures. 3. Congestive heart failure of unknown type. 4. COPD. 5. Hypertension. PAST SURGICAL HISTORY: 1. Hysterectomy. 2. Tonsillectomy. 3. Appendectomy. ALLERGIES: 1. CODEINE. 2. PENICILLIN. 3. SULFA DRUGS. MEDICATIONS: 1. Toprol-XL 25 mg b.i.d. 2. Losartan 100 mg daily. 3. Eliquis 5 mg b.i.d. 4. Imdur 30 mg daily. 5. Hydrochlorothiazide 12.5 mg daily. 6. Zoloft 50 mg daily. 7. Lexapro 5 mg daily. 8. Protonix 20 mg daily. 9. Lovastatin 40 mg daily. 10. Aldactone 25 mg daily. FAMILY HISTORY: Denies premature coronary artery disease or sudden cardiac within the family. SOCIAL HISTORY: The patient is a former smoker. She rarely drinks alcohol. No history of drug abuse. REVIEW OF SYSTEMS: Fourteen systems were reviewed including osteopathic. Pertinent positives and negatives above, otherwise negative. PHYSICAL EXAMINATION: VITAL SIGNS: Temperature 97.7, heart rate 52, blood pressure 127/58, respirations 14, pulse oximetry 97% on room air. GENERAL: The patient appears well, in no acute distress. Alert, awake and oriented x 3. HEENT: Extraocular muscles intact. Mucous membranes moist. NECK: Supple. No JVD at 45 degrees. No carotid bruits heard bilaterally. Carotid upstroke is brisk in nature. HEART: Irregularly irregular and bradycardic. LUNGS: Clear to auscultation bilaterally. No wheezes, rales or rhonchi. ABDOMEN: Soft, nontender, nondistended. No organomegaly noted. EXTREMITIES: Show no clubbing, cyanosis or edema. Femoral and distal pulses intact bilaterally. NEUROLOGIC: No focal deficits. SKIN: Warm, dry and intact. OSTEOPATHIC: No kyphoscoliosis, lordosis or paraspinal tender points. LABORATORY DATA: Hemoglobin 11.5, hematocrit 34.6, platelets 217. Potassium 3.5, BUN 16, creatinine 1.0. Troponin negative x 3. Electrocardiogram (04/11/2018 at 2219), atrial fibrillation with slow ventricular response, left axis deviation, possible anteroseptal myocardial infarction. IMPRESSION: 1. Cardiac awareness. 2. Atrial fibrillation with slow ventricular response. 3. Hypertensive urgency. RECOMMENDATIONS: 1. Ms. Rahman presented with what appears to be cardiac awareness of palpitations. Overall, it sounds like she mostly feels it when she has a slow heart rate, but occasionally might have tachycardic episodes. 2. She came in significantly hypertensive, with a blood pressure of 248/115. 3. She was treated with clonidine and Toprol-XL and she may have significant bradycardia secondary to this. For now, these medications will be held and she will be further evaluated. 4. Overall, she does not feel that she has chest pain. She just feels that her heart is too slow at this time and can feel it. 5. Depending on if she continues to have palpitations, she may need outpatient rhythm analysis, whether that be a loop recorder or event recorder to further evaluate her heart rates during a normal day. 6. Further recommendations will be made based on the hospital course. Thank you for allowing me to see Marcelina Rahman. If there are any questions, please do not hesitate to call. Ten Briones, DO NELSON/ZEINA , 01:01 AM , 01:34 AM
[2018-04-13] MEDS ORDERED: Bisacodyl 10 MG Supp RECTAL PRN (04:33)
[2018-04-13] MEDS ORDERED: Senna/Docusate Sodium 8.6/50 MG Tablet PO SCH (09:00)
[2018-04-13] MEDS: Escitalopram 10 MG Tablet PO SCH (09:28)
[2018-04-13] MEDS: Pantoprazole Sodium 20 MG DR Tablet PO SCH (09:28)
[2018-04-13] MEDS: Sertraline 50 MG Tablet PO SCH (09:28)
[2018-04-13] MEDS: Spironolactone 25 MG Tablet PO SCH (09:28)
[2018-04-13] MEDS: Isosorbide Mononitrate 30 MG ER 24HR Tablet (Imdur) PO SCH (09:32)
--- NOTE | 2018-04-13 09:58 | P.PN ---
Subjective Interval history: Follow-up for hypertensive urgency, palpitations. Patient reports overall feeling much better again today. She denies any chest pain, but does have occasional "flutters" in her chest, no correlation to the telemetry. Denies any shortness of breath or cough. She is reporting some dysuria and feels like she has a recurrent UTI. She states she gets UTI frequently. She denies any fevers or chills. Denies any other medical complaints at this time. Blood pressure much improved, SBP in 110s-130s, and HR in the upper 50s. Physical Exam Vital signs: Vital Signs 04/12/18 14:09 04/12/18 15:34 04/12/18 19:39 Temperature 98.1 F 97.5 F L 97.8 F Pulse Rate 49 L 51 L 53 L Respiratory Rate 14 14 14 Blood Pressure 125/58 L 130/59 L 111/53 L Pulse Oximetry 99 98 96 04/13/18 00:00 04/13/18 04:00 04/13/18 07:20 Temperature 98.2 F 98.4 F 98.2 F Pulse Rate 56 L 63 53 L Respiratory Rate 17 17 16 Blood Pressure 138/60 137/62 116/55 L Pulse Oximetry 97 93 L 96 Intake & Output 04/12/18 04/13/18 04/13/18 18:59 06:59 18:59 Intake Total 720 / 720 Balance 720 / 720 Intake: Oral 720 / 720 Other: # Voids 2 Narrative: GENERAL: Well-nourished, well-developed pleasant elderly female patient in [facility]. SKIN: Warm and dry. No rash. HEENT: Normocephalic. Atraumatic. Pupils equal and round. Mucous membranes pink and moist. NECK: Supple. Trachea midline. CARDIOVASCULAR: Bradycardic and irregular rhythm. No murmur appreciated. RESPIRATORY: No accessory muscle use. Clear to auscultation. Breath sounds equal bilaterally. GASTROINTESTINAL: Abdomen soft, non-tender, nondistended. Normoactive bowel sounds x4. MUSCULOSKELETAL: No obvious deformities. Extremities without clubbing, cyanosis , or edema. NEUROLOGICAL: Awake and alert. No obvious cranial nerve deficits. Motor grossly within normal limits. Moving all extremities spontaneously. Normal speech. PSYCHIATRIC: Appropriate mood and affect; insight and judgment normal. Results - Labs CBC & Chem 7: 04/11/18 11:10 04/11/18 11:10 Assessment and Plan - Assessment (1) Hypertensive urgency Code(s): I16.0 - Hypertensive urgency Status: Acute (2) Atrial fibrillation Code(s): I48.91 - Unspecified atrial fibrillation Status: Acute - Plan 87-year-old female with a history of atrial fibrillation, hypertension who presents with palpitations. On arrival patient was found to have systolic blood pressure in the range of 210-248. Hypertensive urgency: Patient presented with SBP up to 248 in the ED. -S/p clonidine 0.3 mg, metoprolol succinate 25 mg, losartan 100 mg as well as HCTZ 12.5 mg p.o. -Goal is to gradually decrease blood pressure. -Continued on losartan 100mg daily however patient's metoprolol on hold due to bradycardia -BP much improved, SBP in 110s-130s, stable Chest pain: Very atypical. -ACS ruled out with negative troponins 3 and EKG without acute ischemic changes -Continue Imdur 30 mg daily, spironolactone, losartan. -Holding BB due to bradycardia -Chest pain currently resolved Atrial fibrillation with SVR: HR into the 30s on telemetry, suspect secondary to receiving multiple BP medications upon arrival -Holding metoprolol -Continue apixaban 5 mg twice daily. -monitor on telemetry, HR much improved to the upper 50s -Consult patient's actuarial manager Dr. Hunter, discussed with Dr. Briones, recommends to d/c metoprolol and ok to d/c home today from cardiac standpoint Dysuria: patient with history of recurrent UTIs -UA negative -recommend outpatient f/up DVT Prophylaxis: Luigi Full code. Discharge Planning: Plan to d/c today if HR and BP remains stable. PT recommending no physical therapy at discharge. Discharge patient to home Condition on discharge: Stable Heart Healthy Diet as tolerated Ad Judith activity Rx written: no new meds, discontinued metoprolol Follow-up with primary care physician and actuarial manager Dr. Hunter
[2018-04-13 11:05] LABS: Bacteria,Urine Rare /hpf; Bilirubin,Urine Negative (Negative); Clarity,Urine Clear (Clear); Color,Urine Yellow (Yellw/Straw); Glucose,Urine (UA) Negative (Negative); Leukocyte Esterase,Urine Negative (Negative); Nitrite,Urine Negative (Negative); Specific Gravity,Urine 1.006 (1.002-1.035); Squamous Epithelial Cell,Urine <1 /hpf (0-5)
--- NOTE | 2018-04-13 12:06 | P.PNCA ---
Subjective Interval history: No events overnight Feels ok, just weak Does have a flutter every now and then, no chest pain Telemetry with AFib in the 50s Physical Exam Vital signs: Vital Signs 04/12/18 14:09 04/12/18 15:34 04/12/18 19:39 Temperature 98.1 F 97.5 F L 97.8 F Pulse Rate 49 L 51 L 53 L Respiratory Rate 14 14 14 Blood Pressure 125/58 L 130/59 L 111/53 L Pulse Oximetry 99 98 96 04/13/18 00:00 04/13/18 04:00 04/13/18 07:20 Temperature 98.2 F 98.4 F 98.2 F Pulse Rate 56 L 63 53 L Respiratory Rate 17 17 16 Blood Pressure 138/60 137/62 116/55 L Pulse Oximetry 97 93 L 96 04/13/18 11:34 Temperature 98.4 F Pulse Rate 71 Respiratory Rate 16 Blood Pressure 108/50 L Pulse Oximetry 98 Intake & Output 04/12/18 04/13/18 04/13/18 18:59 06:59 18:59 Intake Total 720 / 720 Balance 720 / 720 Intake: Oral 720 / 720 Other: # Voids 2 2 Narrative: GENERAL: Well-nourished, well-developed pleasant elderly female patient in [facility]. SKIN: Warm and dry. No rash. HEENT: Normocephalic. Atraumatic. Pupils equal and round. Mucous membranes pink and moist. NECK: Supple. Trachea midline. CARDIOVASCULAR: Bradycardic and irregular rhythm. No murmur appreciated. RESPIRATORY: No accessory muscle use. Clear to auscultation. Breath sounds equal bilaterally. GASTROINTESTINAL: Abdomen soft, non-tender, nondistended. Normoactive bowel sounds x4. MUSCULOSKELETAL: No obvious deformities. Extremities without clubbing, cyanosis , or edema. NEUROLOGICAL: Awake and alert. No obvious cranial nerve deficits. Motor grossly within normal limits. Moving all extremities spontaneously. Normal speech. PSYCHIATRIC: Appropriate mood and affect; insight and judgment normal. Assessment and Plan - Assessment (1) Awareness of heart beat Code(s): R00.2 - Palpitations Status: Acute (2) Hypertension Code(s): I10 - Essential (primary) hypertension Status: Acute (3) Hypertensive urgency Code(s): I16.0 - Hypertensive urgency Status: Acute (4) Atrial fibrillation Code(s): I48.91 - Unspecified atrial fibrillation Status: Acute - Plan 1) Afib with slow ventricular response Will plan on stopping Toprol XL Does have fluttering every now and then May need rhythm analysis outpatient if having tachy-jagdish 2) HTN urgency with 250/115 Blood pressure better controlled 3) Cardiac awareness No chest pain Just feels her heart beat and it bothers her, reassured the patient about it 4) No further cardiovascular work up Will see PRN Follow up with Dr. Hunter on discharge (2) Hypertension Qualifiers: Hypertension type: essential hypertension Qualified Code(s): I10 - Essential (primary) hypertension
== END 2018-04-13 14:42 | disposition home or self-care (01) ==
LOC: NEPE 09:45 → NEDA 09:45 → NEPGCP 18:50
PROVIDERS: ADMIT Internal Medicine; ATTEND Internal Medicine